=== PATIENT | female | born 1945 | race Caucasian/White ===

== ENCOUNTER 2018-02-15 06:30 | Day surgery (SDC) | payer MEDICARE, BC ==
[~2018-02-15] VITALS: Ht 172.7 cm; Wt 47.8 kg
[~2018-02-15 06:30] MED LIST: ASPI81 PO; CARV6.252 OR; DIGO0.12 PO; HYDR15TA OR; IMDU30TA PO; LISI-357 PO; MINO50TA PO; OMEP20CA5 PO; PRAV20TA PO; SPIR25TA PO; TAB-TAB PO
[2018-02-15] MEDS ORDERED: IOHEXOL 350 MG/ML 50 ML BTL (for Cath Lab) OTHER ONE (06:31)
[2018-02-15] MEDS ORDERED: IOHEXOL 350 MG/ML 100 ML BTL (for Cath Lab) OTHER ONE (06:31)
[2018-02-15] MEDS ORDERED: NS 1000 ML @100 MLS/HR IV SCH (07:00)
[2018-02-15] MEDS ORDERED: ASPIRIN 325 MG TAB PO SCH (07:00)
[2018-02-15] MEDS ORDERED: diphenhydrAMINE HCL 50 MG/ML VIAL IV SCH (07:00)
[2018-02-15] MEDS ORDERED: HEPARIN SODIUM - IV 10,000 UNITS/10 ML VIAL ONE (07:13)
[2018-02-15] MEDS ORDERED: HEPARIN-NS/PF FLUSH BAG 2,000 ML IV FLUSH ONE (07:13)
[2018-02-15] MEDS ORDERED: LIDOCAINE HCL 1% PF 30 ML VIAL ONE (07:19)
[2018-02-15 07:42] LABS: AUTOMATED NEUTROPHIL # 6.7 TH/MM3 (1.8-7.7); BASOPHIL # 0.1 TH/MM3 (0-0.2); BASOPHIL % 0.8 % (0.0-2.0); EOSINOPHIL # 0.9 TH/MM3 (0-0.4); EOSINOPHIL % 8.7 % (0.0-4.0); HEMATOCRIT 31.1 % (35.0-46.0); HEMOGLOBIN 10.1 GM/DL (11.6-15.3); LYMPHOCYTE # 1.6 TH/MM3 (1.0-4.8); MEAN CELL VOLUME 81.8 FL (80.0-100.0); MEAN CORPUSCULAR HEMOGLOBIN 26.6 PG (27.0-34.0); MEAN CORPUSCULAR HGB CONC 32.5 % (32.0-36.0); MEAN PLATELET VOLUME 7.3 FL (7.0-11.0); MONO % 10.6 % (0.0-8.0); MONOCYTE # 1.1 TH/MM3 (0-0.9); NEUT % 64.9 % (16.0-70.0); PLATELET COUNT 418 TH/MM3 (150-450); RED CELL DISTRIBUTION WIDTH 15.8 % (11.6-17.2); WHITE BLOOD COUNT 10.4 TH/MM3 (4.0-11.0)
[2018-02-15 08:01] LABS: BICARBONATE 27.8 MEQ/L (21.0-32.0); CALCIUM 8.6 MG/DL (8.5-10.1); CREATININE 0.62 MG/DL (0.50-1.00)
[2018-02-15 08:02] VITALS: BP 180/83; PULSE 79; RESP 17; TEMP 97.8; O2SAT 100
[2018-02-15] MEDS ORDERED: CENTCHW4 CHEW (08:09)
[2018-02-15] MEDS ORDERED: SPIR25TA PO (08:09)
[2018-02-15] MEDS ORDERED: LEFL1TAB3 PO (08:09)
[2018-02-15] MEDS ORDERED: ALBU6.7H INH (08:09)
[2018-02-15] MEDS ORDERED: DIGO0.12 PO (08:09)
[2018-02-15] MEDS ORDERED: TRAM50TA PO (08:09)
[2018-02-15] MEDS ORDERED: PRAV20TA2 PO (08:09)
[2018-02-15] MEDS ORDERED: ISOS10TA PO (08:09)
[2018-02-15] MEDS ORDERED: CARV12.52 PO (08:09)
[2018-02-15] MEDS ORDERED: OMEP20TA93 PO (08:09)
[2018-02-15] MEDS ORDERED: diphenhydrAMINE HCL 50 MG/ML VIAL ONE (08:26)
[2018-02-15] MEDS ORDERED: HEPARIN-NS/PF FLUSH BAG 1,000 ML IV FLUSH ONE (08:32)
[2018-02-15] MEDS ORDERED: MIDAZOLAM HCL 2 MG/2 ML VIAL ONE (09:41)
[2018-02-15] MEDS ORDERED: SODIUM CHLOR 0.9% 1000 ML INJ 1,000 ML IV SCH (10:33)
--- NOTE | 2018-02-15 10:34 | CATHPROC ---
[employer] HIS Report Study Information Study Number Admission Scheduled Start Study Start [id number] Feb 15 2018 6:30AM 02/15/2018 Feb 15 2018 8:07AM [place] Service Cardiac Catheterization Admit Source Facility Department Other [facility] Physician and Clinical Staff Initial Ale Aly Mica Laminating Machine Feeder Lawson RN, Cortes Recorder Loni Ramirez BSN Scrub Ishmael Bah RCIS(BS) Procedures Performed Procedure Location (Site) Vessel Name Angiogram LV LV Ventricle Coronary Angiograms LCA Left Coronary Coronary Angiograms RCA Right Coronary Equipment Time Glue Jointer Feeder Description Size Mfg Part Number Used/Scraped STARCLOSE, VASCULAR CLOSER [id number] 09:59 [facility] CRITICAL CARE FR 6 Used SYSTEM *[id number] 08:10 JULIEN HARDY SWAN SHAWANDA CATHETER FR 7 Used *[id number] TRANSDUCER, TRUWAVE [id number] 08:10 JULIEN HARDY * Used W/STOCKCOCK *[id number] TRANSDUCER, TRUWAVE [id number] 08:10 JULIEN HARDY * Used W/STOCKCOCK *[id number] 534-618T *[id number] 534-620T *[id number] 534-621T *[id number] PIGTAIL ANG. 145 INFINITI 534-652S CATHETER *[id number] 08:10 eDealya INDUSTRIES PACK, CCL CUSTOM * Used *[id number] 08:10 eDealya PACER PEN, SKIN DUAL W/ RULER * Used *[id number] 09:14 NowForce MEDICAL SHEATH, FR6.5 PRELUDE 11CM FR 6.5 038ACT Used *[id number] 08:10 NowForce MEDICAL WIRE, 3MMJ .035 180CM 180CM Used *[id number] 09:32 NowForce MEDICAL WIRE, EXCHANGE 260CM 3MMJ 260CM Used *[id number] 08:10 NAMIC MANIFOLD, 2 PORT * Used *[id number] [id number] 08:10 NAMIC MANIFOLD, 4 PORT * Used *[id number] 08:10 NYCOMED OMNIPAQUE, 350 MG, 150ML 150ML [id number] Used [id number] 08:10 BRISENO MEDICAL BLANKET,WARM AIR CCL * Used *[id number] 08:10 TERUMO MEDICAL SHEATH, FR7 TERUMO (10CM) FR 7 Used *[id number] 09:35 VASCULAR SOLUTIONS PIGTAIL DUAL LUMEN CATHETER FR 6 5540 *[id number] Used History: Current Medications Medication Dosage/Unit Route Frequency Last Date/Time Taken Beta Mehdi Imdur DIGOXIN 0.125 mg Statins (any) History: Allergies Allergy Reaction Sulfa (Sulfonamide Antibiotics) Rash History: Risk Factors Family History of Hypertension Dyslipidemia Previous ND Previous Heart Failure Premature CAD Yes No No No Yes Prior Valve Prior PCI Prior CABG Surgery No No No Cerebrovascular Peripheral Artery Chronic Lung On Dialysis Diabetes Disease Disease Disease No No Yes Yes No History: Stress Tests Stress or Imaging Studies Performed No History: Other Current Smoker Method Quit Packs a Day Years Used Pack Years No Cigarettes 30 Years Ago 1 20 20 Labs Hgb (g/dl) Hct (%) RBC (MIL/MM3) WBC (l/cumm) Platelets (thousands) 11.60-17.00 35.00-51.00 4.00-5.90 4.00-11.00 150.00-450.00 10.1 31.1 3.8 10.4 418 Glucose (mg/dl) BUN (mg/dl) Creatinine (mg/dl) BUN:Creatinine (1:x) 74.00-106.00 7.00-18.00 0.50-1.30 10.00-20.00 95 12 0.6 20 Na (meq/l) K (meq/l) 136.00-145.00 3.50-5.10 140 4.3 PT (sec) INR (PTT:PT) 9.80-11.60 0.90-1.10 10 1 CPK-MB (ng/ML) 0.50-3.60 Not Drawn Medication Medication Total Dose (Bolus/Oral) Medication Total Dosage/Unit 1% XYLOCAINE 10 mL FENTANYL 25 mcg VERSED 1 mg Medications (Bolus/Oral) Medication Time Given Dosage/Unit Administered By Reason 1% XYLOCAINE 02/15/2018 9:07:55 AM 10 mL Ale Man 10 mL 1% XYLOCAINE given in lab by Ale Man in Right Groin via Subcutaneous. Ordered by Ale Man. VERSED 02/15/2018 9:41:43 AM 1 mg Cortes Pathak RN 1 mg VERSED given in lab by Cortes Pathak RN via Peripheral IV. Ordered by Ale Man. FENTANYL 02/15/2018 9:42:51 AM 25 mcg Cortes Pathak RN 25 mcg FENTANYL given in lab by Cortes Pathak RN via Peripheral IV. Ordered by Ale Man. Medication (Drip) Medication Time Given Dosage/Unit Concentration/Unit Diluent (ml) Solution IV Solutions 02/15/2018 8:34:10 AM 0 mL (IV) NaCl .9 Patient arrived on IV Solutions via Peripheral IV. Pump/Drip Flow = 15 ml/hr using NaCl .9. Ordered b y Ale Man. Initial Case Assessment Cardiovascular HR Rhythm NIBP Chest Pain 84 paced 149/73 0 Edema Present Skin color Skin None Normal Warm Dry Circulatory - Right Pulses Dorsalis Pedis Femoral d 2 Scale (0,1,2,3,4,d) Circulatory - Left Pulses Dorsalis Pedis Femoral d 2 Scale (0,1,2,3,4,d) Circulatory - Lower Extremities Color Lower Right Color Lower Left Normal Normal Neurological State Oriented to time-place- Alert Moves all extremities person Respiration - General Respiration Rate SpO2 (%) (B/min) 16 100 Final Case Assessment Cardiovascular HR Rhythm NIBP Chest Pain 83 paced 139/66 0 Edema Present Skin color Skin None Normal Warm Dry Circulatory - Right Pulses Dorsalis Pedis Femoral d 2 Scale (0,1,2,3,4,d) Circulatory - Left Pulses Dorsalis Pedis Femoral d 2 Scale (0,1,2,3,4,d) Circulatory - Lower Extremities Color Lower Right Color Lower Left Normal Normal Neurological State Oriented to time-place- Alert Moves all extremities person Respiration - General Respiration Rate SpO2 (%) (B/min) 14 96 Chronological Log Time Study Chronological Log 8:16:15 Patient arrived via Bed. 8:16:16 Patient Name, D.O.B, / Armband Verified By R.N. 8:16:17 Consent signed by the physician and the patient and verified by the [facility] staff. 8:16:21 Patient has been NPO for More than 6Hrs. 8:29:10 Skin Breakdown- none per patient Vitals capture started with the following parameters, Patient=Adult, Interval=5 min, Initial Pr nyqyta=165 mmHg, 8:29:56 Deflation Rate=5 mmHg, Cuff placed on Left Arm 8:30:33 HR=81 bpm, TTLP=693/73 mmhg, LqM6=756.0 %, Resp=11 B/min, Pain=0, Liliane=10, Leon=2 8:32:26 Patient Warmer Placed on the Table. 8:34:02 A # 20 IV was noted in the Forearm (left). Grade = 0 8:34:10 Patient arrived on IV Solutions via Peripheral IV. Pump/Drip Flow = 15 ml/hr using NaCl .9. Ordered by Ale Man. 8:34:26 History and physical on the chart or being dictated. Assessment: Initial Case, HR=84 BPM, Rhythm=paced, JXRZ=574/73 mmhg, Chest Pain=0, Edema=None, Color=Normal, Skin = Warm, Dry Right Pulses: Doc Ped=d, Femoral=2 Left Pulses: Doc Ped=d, Femoral=2 8:34:27 Lower Right Extremities: Color=Normal Lower Left Extremities: Color=Normal Neurological: State=Alert, Ox3, LEAL Respiration: Resp=16 B/min, JsV3=824 % 8:34:37 Reference ECG taken 8:35:32 HR=82 bpm, CBSB=952/73 mmhg, KqZ9=799.0 %, Resp=10 B/min, Pain=0, Liliane=10, Leon=2 8:36:10 Bilateral groins prepped with 2% chlorhexidine, and draped after a 3 minute waiting time. 8:36:14 MD paged 8:40:33 HR=81 bpm, FDWI=774/76 mmhg, OaK3=489.0 %, Resp=11 B/min, Pain=0, Liliane=10, Leon=2 8:40:42 MD responded 8:41:55 Pressure channel 1 zeroed. 8:42:26 Pressure channel 2 zeroed. 8:45:32 HR=86 bpm, NTQL=714/76 mmhg, SpO2=99.0 %, Resp=12 B/min, Pain=0, Liliane=10, Leon=2 8:48:34 Verbal Stimulation=2 Physical Stimulation=2 Airway=2 Respiration=2 TOTAL=8. (0=absent, 1=salas ited, 2=present) 8:50:31 HR=85 bpm, JBLD=959/80 mmhg, SpO2=99.0 %, Resp=17 B/min, Pain=0, Liliane=10, Leon=2 8:53:38 Pressure channel 1 zeroed. 8:55:34 HR=80 bpm, HJTX=355/70 mmhg, SpO2=99.0 %, Resp=11 B/min, Pain=0, Liliane=10, Leon=2 9:00:31 HR=80 bpm, URMM=205/70 mmhg, SpO2=98.0 %, Resp=14 B/min, Pain=0, Liliane=10, Leon=2 9:01:37 MD arrived. 9:05:32 HR=81 bpm, SEQC=497/71 mmhg, DiN6=600.0 %, Resp=10 B/min, Pain=0, Liliane=10, Leon=2 Time Out. Correct patient, correct procedure, correct physician, power injector loaded, with con trast with surgical team 9:06:21 present. Time Out Concurred by MD and individual staff in procedure. 9:06:43 Case Start 9:07:55 10 mL 1% XYLOCAINE given in lab by Ale Man in Right Groin via Subcutaneous. Ordered b y Ale Man. 9:10:33 HR=83 bpm, QAPF=779/73 mmhg, BuT0=823.0 %, Resp=10 B/min, Pain=0, Liliane=10, Leon=2 9:11:34 Access site was Right Femoral Artery. 9:12:03 A SHEATH, FR7 TERUMO (10CM) FR 7 was advanced into the Fem Vein (right) using the Percutaneo us technique. 9:13:29 Access site was Right Femoral Artery. 9:13:36 A SHEATH, FR6.5 PRELUDE 11CM FR 6.5 was advanced into the Fem Art (right) using the Percutan eous technique. 9:14:35 A SWAN SHAWNADA CATHETER FR 7 was inserted via Fem Vein (right) 9:15:34 HR=82 bpm, EYDB=639/74 mmhg, JuX9=049.0 %, Resp=10 B/min, Pain=0, Liliane=10, Leon=2 9:16:07 Saturation: Site=IVC (Inferior Vena Cava) , O2=76 %, Hgb=10.1 gm/dl, Condition=Condition 1. Used in calculation. 9:16:47 Saturation: Site=Jonnathan (Mid Right Atrium) , O2=68.4 %, Hgb=10.1 gm/dl, Condition=Condition 1. Used in calculation. Recorded Pressure: RA, HR=81, Condition=Condition 1 9:17:10 (Right Atrium) RA 5/3 Recorded Pressure: RV, HR=87, Condition=Condition 1 9:17:51 (Right Ventricle) RV 36//5 Recorded Pressure: MPA, HR=85, Condition=Condition 1 9:18:20 (Main Pulmonary Artery) MPA 3723 9:19:17 Saturation: Site=FA (Femoral Artery) , O2=93.8 %, Hgb=10.1 gm/dl, Condition=Condition 1. Use d in calculation. Recorded Pressure: PCW, HR=84, Condition=Condition 1 9:20:03 (Pulmonary Capillary Wedge) PCW 13 9:20:25 Saturation: Site=PA (Pulmonary Artery) , O2=66.2 %, Hgb=10.1 gm/dl, Condition=Condition 1. U sed in calculation. 9:20:33 HR=83 bpm, DOCI=489/74 mmhg, SpO2=99.0 %, Resp=12 B/min, Pain=0, Liliane=10, Leon=2 Thermo CO: CO=5.4 l/m, HR=86 bpm, Condition=Condition 1. Used in calculation. 9:21:15 Equipment: Description and Size=SWAN SHAWANDA CATHETER FR 7, Type=Bath Probe, CC=0.579 Injectant: Temp=19.0 - 22.0 Celsius, Volume=10.0 ml Thermo CO: CO=5.1 l/m, HR=83 bpm, Condition=Condition 1. Used in calculation. 9:22:00 Equipment: Description and Size=SWAN SHAWANDA CATHETER FR 7, Type=Bath Probe, CC=0.579 Injectant: Temp=19.0 - 22.0 Celsius, Volume=10.0 ml Thermo CO: CO=5.0 l/m, HR=83 bpm, Condition=Condition 1. Used in calculation. 9:22:27 Equipment: Description and Size=SWAN SHAWANDA CATHETER FR 7, Type=Bath Probe, CC=0.579 Injectant: Temp=19.0 - 22.0 Celsius, Volume=10.0 ml 9:25:36 HR=81 bpm, EVKN=397/72 mmhg, SpO2=98.0 %, Resp=11 B/min, Pain=0, Liliane=10, Leon=2 Recorded Pressure: LV, MPA, HR=90, Condition=Condition 1 9:25:55 (Left Ventricle) LV 167/7/16, (Main Pulmonary Artery) MPA 43/19/30 Recorded Pressure: LV, MPA, HR=87, Condition=Condition 1 9:26:14 (Left Ventricle) LV 158/4/14, (Main Pulmonary Artery) MPA 42/15/27 Recorded Pressure: LV, PCW, HR=88, Condition=Condition 1 9:26:50 (Left Ventricle) LV 162/4/12, (Pulmonary Capillary Wedge) PCW 16/15/12 Recorded Pressure: LV, RV, HR=86, Condition=Condition 1 9:27:19 (Left Ventricle) LV 163/5/14, (Right Ventricle) RV 42/0/5 9:27:41 [place] Shawanda Catheter Removed Recorded Pressure: LV, HR=85, Condition=Condition 1 9:28:06 (Left Ventricle) LV 163/3/13 9:29:23 Pressure channel 1 zeroed. 9:30:33 HR=86 bpm, RQSD=402/77 mmhg, SpO2=98.0 %, Resp=13 B/min, Pain=0, Liliane=10, Leon=2 9:31:39 The LV was injected at 15 cc/sec for a total of 42. OMNIPAQUE, 350 MG, 150ML 150ML used. After removing the current catheter a PIGTAIL DUAL LUMEN CATHETER FR 6 was advanced over a WIRE, EXCHANGE 9:33:18 260CM 3MMJ 260CM. Recorded Pressure: LV, Ao, HR=89, Condition=Condition 1 9:35:27 (Left Ventricle) LV 163/7/16, (Aorta) Ao 158/66/105 9:35:34 HR=90 bpm, RRKH=015/87 mmhg, SpO2=97.0 %, Resp=12 B/min After removing the current catheter a JL 4.0 INFINITI CATHETER FR 6 was advanced over a WIRE, EX CHANGE 260CM 9:36:57 3MMJ 260CM. Recorded Pressure: Ao, HR=84, Condition=Condition 1 9:37:16 (Aorta) Ao 156/62/101 After removing the current catheter a JL 3.5 INFINITI CATHETER FR 6 was advanced over a WIRE, 3M MJ .035 180CM 9:40:04 180CM. 9:40:37 HR=83 bpm, FMFW=973/71 mmhg, SpO2=98.0 %, Resp=12 B/min, Pain=0, Liliane=10, Leon=2 9:41:43 1 mg VERSED given in lab by Cortes Pathak RN via Peripheral IV. Ordered by Ale Man. 9:42:51 25 mcg FENTANYL given in lab by Cortes Pathak RN via Peripheral IV. Ordered by Ale Man . 9:45:36 HR=86 bpm, ZKRE=393/70 mmhg, SpO2=97.0 %, Resp=12 B/min, Pain=0, Liliane=10, Leon=2 After removing the current catheter a JL 4.0 INFINITI CATHETER FR 6 was advanced over a WIRE, 3M MJ .035 180CM 9:47:04 180CM. Recorded Pressure: LCA, HR=86, Condition=Condition 1 9:47:42 (Left Coronary Artery) LCA 133/54/89 9:48:14 The LCA was injected and visualized at various angles. OMNIPAQUE, 350 MG, 150ML 150ML used. 9:50:35 HR=88 bpm, UNYT=973/71 mmhg, SpO2=96.0 %, Resp=16 B/min After removing the current catheter a JR 4.0 INFINITI CATHETER FR 6 was advanced over a WIRE, 3M MJ .035 180CM 9:53:45 180CM. 9:54:25 The RCA was injected and visualized at various angles. OMNIPAQUE, 350 MG, 150ML 150ML use d. 9:55:34 HR=87 bpm, MDPI=646/65 mmhg, SpO2=96.0 %, Resp=18 B/min, Pain=0, Liliane=10, Leon=2 9:56:18 Catheter(s) removed without difficulty 9:57:33 An injection in the Fem Art (right) was made through the SHEATH, FR6.5 PRELUDE 11CM FR 6.5 . 10:00:33 HR=90 bpm, ODTD=333/69 mmhg, SpO2=98.0 %, Resp=13 B/min, Pain=0, Liliane=10, Leon=2 10:02:31 STARCLOSE, VASCULAR CLOSER SYSTEM FR 6 placement in the Fem Art (right) 10:02:34 Case End 10:02:51 No case complications noted. 10:02:51 Cine recording checked. 10:03:44 Bedside Report will be given. 10:03:50 A Left and Right Heart Cath was performed. 10:05:39 HR=84 bpm, BVSN=422/65 mmhg, SpO2=97.0 %, Resp=16 B/min, Pain=0, Liliane=10, Leon=2 10:07:36 Venous Sheath removed; pressure applied to access site. 10:10:31 Sterile dressing applied to site 10:10:36 HR=85 bpm, AVXK=031/66 mmhg, SpO2=98.0 %, Resp=18 B/min, Pain=0, Liliane=10, Leon=2 Assessment: Final Case, HR=83 BPM, Rhythm=paced, AQUM=766/66 mmhg, Chest Pain=0, Edema=None, Color=Normal, Skin = Warm, Dry Right Pulses: Doc Ped=d, Femoral=2 Left Pulses: Doc Ped=d, Femoral=2 10:11:03 Lower Right Extremities: Color=Normal Lower Left Extremities: Color=Normal Neurological: State=Alert, Ox3, LEAL Respiration: Resp=14 B/min, SpO2=96 % 10:12:19 [facility] - Contrast Media Used In Study Contrast Total Opened (mL) Total Used (mL) Total Wasted (mL) Omnipaque 120 120 0 End Study - Maximum Contrast Load Max Contrast Load (mL) 398.5 End Study - Radiation Exposure Fluoro Time (minutes) 9.8 End Study - Patient Disposition Complications Transferred To No [facility]
[2018-02-15] MEDS ORDERED: MISC INFORMATION XX ONE (10:45)
[2018-02-15] MEDS ORDERED: ACETAMINOPHEN 500 MG CPLT PO PRN (10:45)
[2018-02-15] MEDS ORDERED: ATROPINE SULFATE 1 MG/ML VIAL IV PUSH PRN (10:45)
[2018-02-15] MEDS ORDERED: SODIUM CHLOR 0.9% 250 ML INJ 250 ML IV PRN (10:45)
[2018-02-15] MEDS ORDERED: BACITRACIN OINT 0.9 GM PKT TOP ONE (10:45)
[2018-02-15] MEDS ORDERED: ONDANSETRON HCL 4 MG/2 ML VIAL IV PUSH PRN (10:45)
--- NOTE | 2018-02-15 11:09 | MA ---
cc: Ale Man MD, Souheil MD Meyers,Skylar Ambrocio MD DATE: 02/15/2018 PROCEDURE: 1. Right heart catheterization. 2. Left heart catheterization. 3. Coronary arteriogram. 4. Left ventriculogram. 5. Hemodynamic pressure gradient measurements across the aortic valve with a [place] dual lumen catheter. 6. Right femoral arteriogram. 7. Right femoral arteriotomy site closure using a StarClose device. 8. Conscious sedation using Versed and fentanyl for sedation for 30 minutes. JEWELRY MODEL MAKER: Ale Man MD EQUIPMENT USED: A 6-Cuban short sheath, a 7-Cuban short sheath, a 7-Cuban [place]-Kashif catheter. A 6-Cuban JL4, JR4 and pigtail diagnostic catheters. A 6-Cuban Phong catheter (dual lumen). A 6-Cuban JL 3.5 was tried to cannulate the left main; however, we ended up cannulating the left main with the JL4. INDICATION: Progressive angina equivalent symptoms with less exertion lately and echocardiogram revealing LVEF of 55% with a calcified mitral valve and prolapse and severe mitral regurgitation with mild to moderate degree of pulmonary hypertension and also mild to moderate degree of aortic stenosis. She was advised to proceed with right and left heart catheterization to assess her pulmonary hypertension and also assess the severity of the aortic valve and her coronary anatomy. PROCEDURE: After obtaining informed consent, the right groin was prepped in the usual sterile fashion. 15 mL of 1% lidocaine were used for local anesthesia. Using the modified Seldinger technique, the right femoral vein was accessed and a 7-Cuban Terumo sheath was advanced cannulating the right femoral vein. Using the same technique, the 6-Cuban short sheath was inserted in the right femoral artery. [place]-Kashif catheter was then advanced without difficulty and sats were obtained from IVC/mid-RA, PA, and also from the FA. Hemodynamic pressure measurements were obtained in the RA/RV, PA, and wedge position. Simultaneous LV and right heart pressures were also performed. This was followed by crossing the aortic valve using the pigtail catheter which was exchanged with a Phong eventually to hemodynamically measure accurately the gradients across the aortic valve. A left ventriculogram was performed. This was followed by coronary arteriograms, followed by right femoral arteriogram with heavy calcification noted just below the arteriotomy site and those were severe calcifications in 3 areas of the common femoral and also of the SFA. A StarClose device was then applied achieving adequate hemostasis. The patient tolerated the procedure well without acute complications at the time of dictation. CARDIAC CATHETERIZATION FINDINGS: HEMODYNAMICS: RA shows an A-wave of 5, V-wave of 4 and a mean around 3 mmHg. RV pressure was 36/1 with an RVEDP of 6 mmHg. PA pressure was 37/13 with a mean of 23 mmHg. Wedge: A-wave of 13, V-wave of 12 and mean of 10 mmHg. LV pressure was 163/7 with an LVEDP of 16 mmHg. AO pressure was 158/66 mmHg with a mean of 102 mmHg. Mean gradient across the aortic valve was 6.28 mmHg and a valve area of 2.84 cm2 by thermodilution and 2.83 cm2 by Angelica calculation. Valve area index was 1.82 and 1.81 cm2/m2 simultaneously, reflecting only mild aortic stenosis. There was heavy calcification of the mitral annulus noted and a 3+ mitral regurgitation appearing late with enlargement of the left atrium with injection of the LV gram. LEFT VENTRICULOGRAPHY: The left ventriculogram revealed mid to distal anterior apical and distal inferior wall moderate to significant hypokinesis. The left ventricular systolic function is mildly reduced, ejection fraction visual estimates around 45-50%. There was 3-3+ mitral regurgitation. The mitral regurgitation was more prominent from the echocardiogram. There is prolapse of the mitral leaflets noted as well. CORONARIES: Left main artery arose from the left sinus of Valsalva. This had an 80% ostial calcified plaque with damping of pressure upon cannulation and the pressure remained damped even after injecting 150 mcg of nitroglycerin. Left anterior descending artery branched from the left main artery, gave a decent-sized diagonal branch from the mid-portion. The whole LAD system had mild irregularities of 0-15%. Left circumflex artery branched from the left main artery and this had also mild irregularities of less than 20%. From the mid-portion, it extended as a good-sized PLV branch that had multiple other branches with a 0-15% stenosis. The AV groove artery was minute with minimal irregularities of less than 15%. Right coronary artery arose from the right sinus of a Valsalva. This was a big dominant vessel with an inferior takeoff and had minimal irregularities of 0-15%. Distally it gave PDA and PLV arteries that had minimal irregularities of less than 15%. Two mid-RV branches were also within normal limits. CONCLUSION OF THE CARDIAC CATHETERIZATION: 1. Tight calcified ostial left main disease, otherwise mild epicardial coronary artery disease in the right coronary dominant system. 2. Calcified mitral valve with prolapse and 3+ mitral regurgitation. 3. Mildly reduced left ventricular systolic function. 4. Mildly elevated right heart pressures with a PA systolic pressure ranging between 37-43 mmHg. 5. Mild calcified aortic stenosis. RECOMMENDATIONS: Proceed with a two-vessel bypass with a presumed JIMENEZ to the LAD and second graft to the LCX OM as well as mitral valve repair/replacement. This was discussed with Dr. Skylar Howard and he agreed with the plan. Regarding this patient's significant calcified right femoral artery and right SFA disease, she claims she has no claudications walking and this will be dealt with after her open heart surgery. Plan was discussed with Mrs. Lane and she is in agreement as well. MD TITA Mo/SB , 10:29 AM , 11:08 AM
--- NOTE | 2018-02-15 11:42 | PD.CAR.PN ---
CVT Progress Note Subjective/Hospital Course: pt seen and evaluated / full consult to follow sts data discussed with pt Variables - STS Adult Cardiac Surgery Database Version 2.81 RISK SCORES About the STS Risk Calculator Procedure: MV Replacement + CAB Risk of Mortality: 6.728% Morbidity or Mortality: 31.721% Long Length of Stay: 18.507% Short Length of Stay: 9.728% Permanent Stroke: 2.664% Prolonged Ventilation: 25.187% DSW Infection: 0.403% Renal Failure: 8.141% Reoperation: 15.394% tentatively scheduled for CABG X2/ MVR 02/23 Objective: Vital Signs Date Time Temp Pulse Resp B/P (MAP) Pulse Ox O2 Delivery O2 Flow Rate FiO2 02/15/18 10:16 100 Room Air 02/15/18 08:02 97.8 79 17 180/83 (115) 100 Labs: Laboratory Tests Test 02/15/18 07:15 White Blood Count 10.4 TH/MM3 (4.0-11.0) Red Blood Count 3.80 MIL/MM3 (4.00-5.30) Hemoglobin 10.1 GM/DL (11.6-15.3) Hematocrit 31.1 % (35.0-46.0) Mean Corpuscular Volume 81.8 FL (80.0-100.0) Mean Corpuscular Hemoglobin 26.6 PG (27.0-34.0) Mean Corpuscular Hemoglobin Concent 32.5 % (32.0-36.0) Red Cell Distribution Width 15.8 % (11.6-17.2) Platelet Count 418 TH/MM3 (150-450) Mean Platelet Volume 7.3 FL (7.0-11.0) Neutrophils (%) (Auto) 64.9 % (16.0-70.0) Lymphocytes (%) (Auto) 15.0 % (9.0-44.0) Monocytes (%) (Auto) 10.6 % (0.0-8.0) Eosinophils (%) (Auto) 8.7 % (0.0-4.0) Basophils (%) (Auto) 0.8 % (0.0-2.0) Neutrophils # (Auto) 6.7 TH/MM3 (1.8-7.7) Lymphocytes # (Auto) 1.6 TH/MM3 (1.0-4.8) Monocytes # (Auto) 1.1 TH/MM3 (0-0.9) Eosinophils # (Auto) 0.9 TH/MM3 (0-0.4) Basophils # (Auto) 0.1 TH/MM3 (0-0.2) CBC Comment DIFF FINAL Differential Comment Prothrombin Time 10.0 SEC (9.8-11.6) Prothromb Time International Ratio 1.0 RATIO Activated Partial Thromboplast Time 26.2 SEC (24.3-30.1) Blood Urea Nitrogen 12 MG/DL (7-18) Creatinine 0.62 MG/DL (0.50-1.00) Random Glucose 95 MG/DL (74-106) Calcium Level 8.6 MG/DL (8.5-10.1) Sodium Level 140 MEQ/L (136-145) Potassium Level 4.3 MEQ/L (3.5-5.1) Chloride Level 105 MEQ/L (98-107) Carbon Dioxide Level 27.8 MEQ/L (21.0-32.0) Anion Gap 7 MEQ/L (5-15) Estimat Glomerular Filtration Rate 94 ML/MIN (>89) Human Chorionic Gonadotropin, Quant 5 MIU/ML (0-5) Result Diagram: 02/15/18 0715 02/15/18 0715 Cecelia Duke Feb 15, 2018 11:42
--- NOTE | 2018-02-15 12:32 | MB ---
cc: Cecelia Duke DATE: 02/15/2018 HISTORY OF PRESENT ILLNESS: This 72-year-old patient of Dr. Finesse Chatman and Dr. Man that has a history of nonischemic cardiomyopathy and history of mitral regurgitation, complaining of some shortness of breath with exertion for the past couple of weeks and some tightness in her chest when lying down, had a followup with Dr. Man, underwent echocardiogram 01/18/2018 which showed an ejection fraction of 55%, mild to moderate aortic stenosis, severe mitral regurgitation, 2 regurgitation jets with 1 hugging the lateral wall, aneurysmal atrial septum, moderate tricuspid regurgitation with moderate pulmonary hypertension. She underwent cardiac catheterization today for evaluation. Ejection fraction was 45%. The left main had an 80% stenosis, proximal LAD less than 15. We were consulted for mitral valve replacement and coronary artery bypass grafting x 2 to the LAD and the circumflex. PAST MEDICAL HISTORY: Includes nonischemic cardiomyopathy, carotid artery stenosis, coronary artery disease, mitral regurgitation, aortic stenosis, tricuspid regurgitation, hypertension, hyperlipidemia, scleroderma, significant rheumatoid arthritis, and osteoporosis,. She has been off chronic steroids for about 8 years. She does take chronic RA medication. PAST SURGICAL HISTORY: Include Bi-V ICD 5 years ago with a generator change out 3 years ago, [employer]tronic device,;bilateral knee replacement, appendectomy, and bilateral cataract surgery. ALLERGIES: INCLUDE SULFA. HOME MEDICATIONS: Include: 1. Coreg 12.5 b.i.d. 2. Multivitamin. 3. Digoxin 0.125 daily. 4. Imdur 30. 5. Leflunomide 20 mg daily. 6. Omeprazole 20. 7. Pravachol 20 p.o. daily. 8. Albuterol p.r.n. for shortness of breath. 9. Spironolactone 12.5 daily. 10. Tramadol 50 every 6 hours p.r.n. for pain. FAMILY HISTORY: Mother at 92, unknown. Father from 82 of lung cancer. SOCIAL HISTORY: The patient is , one living child. 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 REVIEW OF SYSTEMS: GENERAL: No night sweats, fever, heat and cold intolerance. SKIN: No psoriasis, itching or hives. HEENT: No blurred vision or hearing loss. She does wear glasses. RESPIRATORY: Positive for recent shortness of breath with exertion. CARDIOVASCULAR: Occasional tightness when lying down. No palpitations. No edema. GASTROINTESTINAL: No nausea or vomiting. GASTROINTESTINAL: No diarrhea or vomiting. GENITOURINARY: No burning, frequency, or urgency. CENTRAL NERVOUS SYSTEM: No history of TIA, CVA or seizure disorder. ENDOCRINOLOGY: No history of diabetes. Positive for rheumatoid arthritis and scleroderma. 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 LABORATORY DATA: Shows hemoglobin 10, hematocrit of 31, white cell count of 10, platelet count of 418. Sodium 140, potassium 4.3, BUN of 12, creatinine 0.62, glucose 95. INR 1.0. RADIOLOGICAL EXAMS: Pending. ASSESSMENT AND PLAN: This is a 72-year-old patient of Dr. Man that underwent cardiac catheterization with 2-vessel coronary artery disease, the left main, which will need the left anterior descending and the circumflex bypassed. The mitral valve will be evaluated for repair versus replacement. We will obtain a CT chest to evaluate for any calcification and also for any bony abnormalities. She will need to have the [employer] sales representative notified prior to surgery to turn the Bi-V ICD off. Procedures, alternatives and risks have been discussed with the patient. The STS risk of mortality is 6.7, also secondary to her immune compromise due to her severe RA and scleroderma. Further plan per Dr. Howard. The plan tentatively is for surgery on 02/23/2018. DERRICK Blakely MD JRT/DIOGENES , 11:57 AM , 12:31 PM
--- NOTE | 2018-02-15 12:42 | RADRPT ---
EXAM DATE/TIME: 02/15/2018 11:39 [facility] COMPARISON: No previous studies available for comparison. INDICATIONS : Pre-op CABG. MEDICAL HISTORY : Hypertension. Congestive heart failure. Asthma. Arthritis. SURGICAL HISTORY : Hysterectomy.Pacemaker. PEG tube placement. Bilateral knee replacement. ENCOUNTER: Initial ACUITY: 1 day PAIN SCORE: 0/10 LOCATION: Bilateral legs. TECHNIQUE: Venous ultrasound of the left and right leg was performed from the inguinal ligament to the proximal calf. Real-time, color Doppler and spectral tracing, compression and augmentation techniques were us ed. FINDINGS: RIGHT LEG: There is normal compressibility of the deep venous system from the inguinal region to the proximal ca lf. No echogenic clot is seen in the lumen of the common femoral, femoral, popliteal, and posterior tibial veins. There is a normal response of the venous system to proximal and distal augmentation an d respiration. LEFT LEG: There is normal compressibility of the deep venous system from the inguinal region to the proximal ca lf. No echogenic clot is seen in the lumen of the common femoral, femoral, popliteal, and posterior tibial veins. There is a normal response of the venous system to proximal and distal augmentation an d respiration. There is a complex cystic structure in the posterior medial knee measuring up to 5.7 x 1.3 x 1.8 cm. CONCLUSION: 1. No evidence of deep venous thrombosis. 2. Complex cystic structure in the posterior medial knee most characteristic of a Esposito's cyst. Jozef Pedro MD on February 15, 2018 at 12:39 Board Certified Radiologist. This report was verified electronically.
--- NOTE | 2018-02-15 12:43 | RADRPT ---
EXAM DATE/TIME: 02/15/2018 11:48 [facility] COMPARISON: No previous studies available for comparison. INDICATIONS : Pre-op CABG. MEDICAL HISTORY : Hypertension. Congestive heart failure. Asthma. Arthritis. SURGICAL HISTORY : Pacemaker. Hysterectomy. PEG tube placement. Bilateral knee replacement. ENCOUNTER: Initial ACUITY: 1 day PAIN SCORE: 0/10 LOCATION: Bilateral legs. GREATER SAPHENOUS VEIN THIGH: PROXIMAL: Right 3 mm Left 8 mm MID: Right 6 mm Left 5 mm DISTAL: Right 4 mm Left 5 mm CALF: PROXIMAL: Right 4 mm Left 3 mm MID: Right 3 mm Left 3 mm DISTAL: Right 2 mm Left 2 mm FINDINGS: The venous system of the lower extremities are patent by color Doppler imaging. Measurements of the leg veins (in mm) are listed above. CONCLUSION: 1. Venous mapping as above Brandt Zabala MD on February 15, 2018 at 12:39 Board Certified Radiologist. This report was verified electronically.
--- NOTE | 2018-02-15 12:43 | RADRPT ---
EXAM DATE/TIME: 02/15/2018 12:09 [facility] COMPARISON: No previous studies available for comparison. INDICATIONS : Pre-op CABG. MEDICAL HISTORY : Hypertension. Congestive heart failure. Asthma. Arthritis. SURGICAL HISTORY : Hysterectomy. Pacemaker. PEG tube placement. Bilateral knee replacement. ENCOUNTER: Initial ACUITY: 1 day PAIN SCORE: 0/10 LOCATION: Bilateral neck PEAK SYSTOLIC VELOCITIES (cm/sec): ICA/CCA RATIO: Right: 0.8 Left: 1.2 ICA: Right: 100 Left: 126 CCA: Right: 132 Left: 102 ECA: Right: 96 Left: 114 VERTEBRAL: Right: 108 antegrade Left: 81 antegrade Elevated flow velocities and ICA/CCA ratios have been found to correlate with increased degrees of vessel stenosis, calculated as percentage of diameter relative to a normal segment of distal ICA/CCA FINDINGS: RIGHT CAROTID: No significant stenosis is visualized. Mild plaquing in the internal carotid origin. The waveforms a re within normal limits. LEFT CAROTID: No significant stenosis is visualized. Moderate plaquing in the internal carotid origin The waveform s are within normal limits. VERTEBRAL ARTERIES: Antegrade flow is seen in both vertebral arteries. MISCELLANEOUS: None. CONCLUSION: Atherosclerotic disease without two-dimensional or hemodynamically significant stenosis. Benito Benz MD on February 15, 2018 at 12:40 Board Certified Radiologist. This report was verified electronically.
--- NOTE | 2018-02-15 13:24 | RADRPT ---
EXAM DATE/TIME: 02/15/2018 13:05 [facility] COMPARISON: No previous studies available for comparison. INDICATIONS : Evaluate for pneumonia, pneumothorax or communicable disease. Pre op cabg. MEDICAL HISTORY : Hypertension. Congestive heart failure. Asthma SURGICAL HISTORY : Pacemaker. Hysterectomy. ENCOUNTER: Initial ACUITY: 1 day PAIN SCORE: 0/10 LOCATION: Bilateral chest FINDINGS: A single view of the chest demonstrates diffuse bilateral infiltrates with widespread interstitial d isease. The cardiomediastinal contours are unremarkable. Osseous structures are intact. Left subcl felicita pacemaker. CONCLUSION: Diffuse bilateral infiltrates with widespread interstitial disease. Benito Benz MD on February 15, 2018 at 13:19 Board Certified Radiologist. This report was verified electronically.
--- NOTE | 2018-02-15 13:59 | RADRPT ---
EXAM DATE/TIME: 02/15/2018 12:51 [facility] COMPARISON: No previous studies available for comparison. INDICATIONS : Pre-op CABG. RADIATION DOSE: 5.10 CTDIvol (mGy) MEDICAL HISTORY : Cardiovascular disease. SURGICAL HISTORY : Pacemaker. Hysterectomy. ENCOUNTER: Initial ACUITY: 1 day PAIN SCALE: 0/10 LOCATION: cranial TECHNIQUE: Volumetric scanning of the chest was performed. Using automated exposure control and adjustment of t he mA and/or kV according to patient size, radiation dose was kept as low as reasonably achievable to obtain optimal diagnostic quality images. DICOM format image data is available electronically for r eview and comparison. Follow-up recommendations for detected pulmonary nodules are based at a minimum on nodule size and pa tient risk factors according to Fleischner Society Guidelines. FINDINGS: LUNGS: The patient has widespread diffuse interstitial lung disease. There is extensive bronchiectasis in th e right lower lobe. This thickening in the major fissure on the right no significant airspace disease is seen. PLEURAE: There is no pleural thickening or pleural effusion. MEDIASTINUM: The heart and great vessels demonstrate no acute abnormality. There is no mediastinal or hilar lymph adenopathy. Pacemaker in good position. Marked atherosclerotic disease. AXILLAE: Within normal limits. No lymphadenopathy. MUSCULOSKELETAL: Within normal limits for patient age. MISCELLANEOUS: The visualized upper abdominal organs demonstrate no acute abnormality. Severe atherosclerotic diseas e CONCLUSION: Widespread diffuse interstitial lung disease. Bronchiectasis in the right lower lobe. Some mild thick ening of the fissure on the right. No substantial pleural effusion is identified. Dense atherosclerot ic disease.. Benito Benz MD on February 15, 2018 at 13:55 Board Certified Radiologist. This report was verified electronically.
[2018-02-15 15:46] LABS: BILIRUBIN, URINE NEG (NEG); BLOOD, URINE NEG (NEG); GLUCOSE,URINE NEG (NEG); KETONE, URINE NEG (NEG); NITRITE,URINE NEG (NEG); SQUAMOUS EPITHELIAL CELL URINE <1 /hpf (0-5); URINE COLOR LIGHT-YELLOW (YELLW/STRAW); URINE LEUKOCYTE ESTERASE SMALL (NEG)
[2018-02-15 22:11] LABS: HEMOGLOBIN A1C 5.7 % (4.3-6.0)
== END 2018-02-15 15:23 | disposition home or self-care (01) ==
LOC: HDIC 06:30 → HDOC 06:30
PROVIDERS: ATTEND Internal Medicine Interventional Cardiology
DX: I25.10 Atherosclerotic heart disease of native coronary artery without angina pectoris (principal); I11.0 Hypertensive heart disease with heart failure; I50.9 Heart failure, unspecified; I42.0 Dilated cardiomyopathy; I05.9 Rheumatic mitral valve disease, unspecified; E78.2 Mixed hyperlipidemia; J45.909 Unspecified asthma, uncomplicated; J47.9 Bronchiectasis, uncomplicated; J84.9 Interstitial pulmonary disease, unspecified; Z95.0 Presence of cardiac pacemaker; Z96.653 Presence of artificial knee joint, bilateral; Z01.818 Encounter for other preprocedural examination; Z01.812 Encounter for preprocedural laboratory examination
CPT/HCPCS: 71045; 71250; 80048; 81001; 83036; 84702; 85025; 85610; 85730; 86850; 86900; 86901; 87641; 93458; 93880; 93970; 93998; 94010; 99152; 99153; C1760; C1893; G0269; J1200; J1644; J2250; J3010; Q9967

== ENCOUNTER 2018-02-23 05:12 | Inpatient (IN) | payer MEDICARE, BC ==
[~2018-02-23] VITALS: Ht 172.7 cm; Wt 53.5 kg
[2018-02-23] VITALS (11 sets, daily range): BP systolic 119–157; BP diastolic 58–76; PULSE 68–83; RESP 12–18; TEMP 97.5–98.3; O2SAT 96–99
[~2018-02-23 05:12] MED LIST changes: +ALBU6.7H INH; -ASPI81 PO; +CARV12.52 PO; -CARV6.252 OR; +CENTCHW4 CHEW; -HYDR15TA OR; -IMDU30TA PO; +ISOS10TA PO; +LEFL1TAB3 PO; -LISI-357 PO; -MINO50TA PO; -OMEP20CA5 PO; +OMEP20TA93 PO; -PRAV20TA PO; +PRAV20TA2 PO; -TAB-TAB PO; +TRAM50TA PO
[2018-02-23] MEDS ORDERED: SODIUM CHLORID 0.9% 500 ML IV PRN (05:45)
[2018-02-23] MEDS ORDERED: CHLORHEXIDINE GLUCONATE 4% SOLN 120 ML BTL TOPICAL SCH (05:45)
[2018-02-23] MEDS ORDERED: METOPROLOL TARTRATE 25 MG TAB PO SCH (05:45)
[2018-02-23] MEDS ORDERED: INSULIN REGULAR 100 UNITS in NS 100 ML IV PRN (05:45)
[2018-02-23] MEDS ORDERED: INSULIN HUMAN REGULAR 1,000 UNITS/10 ML VIAL SQ PRN (05:45)
[2018-02-23] MEDS ORDERED: DEXTROSE 50% IN WATER 50 ML VIAL(D50) IV PUSH PRN ×2 (05:45→13:30)
[2018-02-23] MEDS ORDERED: SODIUM CHLORIDE 0.9% FLUSH 10 ML FLUSH IV FLUSH PRN ×2 (05:45→13:30)
[2018-02-23] MEDS ORDERED: PAPAVERINE 60 MG-NITROGLYCERIN 100 MCG-DILTIAZEM 100 MG in NS 100 ML IRRIGATION SCH ×4 (05:45)
[2018-02-23] MEDS ORDERED: CHLORHEXIDINE GLUCONATE 2 % 1 PACK (2 CLOTHS) TOPICAL PRN (05:45)
[2018-02-23] MEDS ORDERED: CEFAZOLIN 500 MG in NS IRR BTL 500 ML IRRIGATION SCH (05:45)
[2018-02-23] MEDS ORDERED: ceFAZolin 2 GM PREMIX 50 ML IV SCH (05:45)
[2018-02-23] MEDS ORDERED: LACTATED RINGER'S 1000 ML IV PRN (05:45)
[2018-02-23] MEDS ORDERED: POVIDONE IODINE 5% (ANTISEPSIS KIT) 4 APPLICATIONS EACH NARE PRN (05:45)
[2018-02-23] MEDS ORDERED: METOPROLOL TARTRATE 25 MG TAB PO PRN (05:45)
[2018-02-23] MEDS ORDERED: HEPARIN SODIUM - SQ 10,000 UNITS/ML VIAL ONE (06:38)
[2018-02-23] MEDS ORDERED: methylPREDNISolone SOD SUCC 125 MG/2 ML VIAL ONE (06:38)
[2018-02-23] MEDS ORDERED: VANCOMYCIN HCL 1000 MG VIAL ONE (06:38)
[2018-02-23] MEDS ORDERED: ceFAZolin 2 GM PREMIX 50 ML ONE (06:39)
[2018-02-23] MEDS ORDERED: SUGAMMADEX SODIUM 200 MG/2 ML VIAL IV PUSH ONE (06:44)
[2018-02-23] MEDS ORDERED: ACETAMINOPHEN 1000 MG/100 ML 100 ML IV ONE (06:44)
[2018-02-23] MEDS ORDERED: MIDAZOLAM HCL 5 MG/5 ML VIAL ONE (06:44)
[2018-02-23] MEDS ORDERED: fentaNYL CITRATE 250 MCG/5 ML AMP ONE ×2 (06:45→09:57)
[2018-02-23] MEDS ORDERED: CUSTODIOL HTK IRR SOLN 2,000 ML ONE (07:29)
[2018-02-23] MEDS ORDERED: ALBUMIN 25% INJ 50 ML IV ONE (07:30)
[2018-02-23] MEDS ORDERED: SODIUM BICARBONATE 8.4% INJ 100 ML ONE (07:30)
[2018-02-23] MEDS ORDERED: MANNITOL INJ 100 ML ONE (07:30)
[2018-02-23] MEDS ORDERED: CALCIUM CHLORIDE 10% SOLN 1 GRAM/10 ML SYR ONE (07:31)
[2018-02-23] MEDS ORDERED: HEPARIN SODIUM - IV 10,000 UNITS/10 ML VIAL ONE (07:31)
[2018-02-23] MEDS ORDERED: SODIUM CHLORIDE 0.9% INJ 200 ML IV ONE (12:00)
[2018-02-23] MEDS ORDERED: PROTAMINE SULFATE 250 MG/25 ML VIAL IV ONE (12:00)
[2018-02-23] MEDS ORDERED: PROPOFOL 500 MG/50 ML BTL IV ONE (12:00)
[2018-02-23] MEDS ORDERED: NORMOSOL R INJ 2,000 ML IV ONE (12:00)
[2018-02-23] MEDS ORDERED: NITROGLYCERIN 50 MG/DEXTROSE 5% SOLN 250 ML BTL IV ONE (12:00)
[2018-02-23] MEDS ORDERED: VECURONIUM BROMIDE 10 MG VIAL IV ONE (12:00)
[2018-02-23] MEDS ORDERED: LACTATED RINGER'S 1000 ML INJ 2,000 ML IV ONE (12:00)
[2018-02-23] MEDS ORDERED: PHENYLEPH/NS 1000 MCG/10 ML SYR IV ONE (12:00)
[2018-02-23] MEDS ORDERED: HEPARIN SODIUM - SQ 10,000 UNITS/ML VIAL SQ ONE (12:00)
[2018-02-23] MEDS ORDERED: PHENYLEPHRINE HCL 10 MG/ML VIAL IV ONE (12:00)
[2018-02-23] MEDS ORDERED: SODIUM CHLOR 0.9% 250 ML INJ 750 ML IV ONE (12:00)
[2018-02-23] MEDS ORDERED: SODIUM CHLORID 0.9% 500 ML INJ 500 ML IV ONE (12:00)
[2018-02-23] MEDS ORDERED: DEXMEDETOMIDINE HCL 200 MCG/2 ML VIAL IV ONE (12:00)
[2018-02-23] MEDS ORDERED: LIDOCAINE HCL 2% 100 MG/5 ML SYRINGE IV PUSH ONE (12:00)
[2018-02-23] MEDS ORDERED: TRANEXAMIC ACID INJ 1,000 MG/10 ML AMP IV ONE (12:00)
[2018-02-23] MEDS ORDERED: MAGNESIUM SULFATE 1 GM/2 ML VIAL IV ONE (12:00)
[2018-02-23] MEDS ORDERED: ePHEDrine/NS 25 MG/5 ML SYRINGE IV ONE (12:00)
[2018-02-23] MEDS ORDERED: SUCCINYLCHOLINE CHLORIDE 200 MG/10 ML VIAL IV ONE (12:00)
[2018-02-23] MEDS ORDERED: ceFAZolin INJ 1,000 MG VIAL ONE (13:04)
--- NOTE | 2018-02-23 13:04 | PD.CAR.PN ---
CVT Progress Note Subjective/Hospital Course: 72-year-old patient of Dr. Finesse Chatman and Dr. Man initally seen 02/15 with a history of nonischemic cardiomyopathy and history of mitral regurgitation, complaining of some shortness of breath with exertion for the past couple of weeks and some tightness in her chest when lying down, had a followup with Dr. Man, underwent echocardiogram 01/18/2018 which showed an ejection fraction of 55%, mild to moderate aortic stenosis, severe mitral regurgitation, 2 regurgitation jets with 1 hugging the lateral wall, aneurysmal atrial septum, moderate tricuspid regurgitation with moderate pulmonary hypertension. She underwent cardiac catheterization 02/15/18 for evaluation. Ejection fraction was 45%. The left main had an 80% stenosis, proximal LAD less than 15. We were consulted for mitral valve replacement and coronary artery bypass grafting x 2 to the LAD and the circumflex. PAST MEDICAL HISTORY: Includes nonischemic cardiomyopathy, carotid artery stenosis, coronary artery disease, mitral regurgitation, aortic stenosis, tricuspid regurgitation, hypertension, hyperlipidemia, scleroderma, significant rheumatoid arthritis, and osteoporosis,. She has been off chronic steroids for about 8 years. She does take chronic RA medication. PAST SURGICAL HISTORY: Include Bi-V ICD 5 years ago with a generator change out 3 years ago, Medtr[employer] device,;bilateral knee replacement, 02/23 pt admitted electively for MVR, CABG x 2 Objective: Vital Signs Date Time Temp Pulse Resp B/P (MAP) Pulse Ox O2 Delivery O2 Flow Rate FiO2 02/23/18 05:45 97.6 97 20 165/88 (113) 97 (1) Hyperlipemia (2) Hypertension (3) Scleroderma (4) Coronary artery disease (5) Mitral regurgitation Cecelia Duke February 23, 2018 13:04
[2018-02-23] MEDS ORDERED: LACTATED RINGER'S 1000 ML INJ 500 ML IV PRN (13:17)
--- NOTE | 2018-02-23 13:18 | HHI.FF ---
Face to Face Verification Diagnosis: (1) Coronary artery disease (2) Hyperlipemia (3) Mitral regurgitation (4) Hypertension (5) Scleroderma (6) S/P MVR (mitral valve replacement) (7) S/P CABG x 2 Physical Therapy Order: Evaluate and Treat Home Health Nursing Order: Signs/symptoms of disease process Medication education-adverse effect Wound care and dressing changes Nursing assessment with vital signs Instructions: Heart and Vascular Surgery patients *Special attention to sternal dressing Mandatory frequency Assess and evaluation, 4 days in a row The next week 3X week 2 times a week for 4 weeks 1 time a week for 5 weeks Schedule Heart and Vascular patients for full 60 day certification period Initial visit Review Open Heart Surgery Discharge Instructions (Sternal precautions, Activity, Elastic hose, Incision care, Driving, Incentive spirometry, Smoking, [place], Work and other) Need Betadine to paint incision Medication reconciliation Importance of follow up care/ check on appointments Make calendar record temperature daily When to call [facility] at Home nurse, review instructions, phone list Incentive Spirometry, demonstration Visit 1- Begin discharge instruction for patient family and/ or caregiver using teach back method- Signs and symptoms of infection Disease characteristics Medicines and side effects Foods and nutrition/ appetite Infection control/ hand washing/ hygiene Visit 2- Continue teaching Discharge instructions- include additional information on smoking cessation , sternal dressing (sternal vac) Visit 3- Continue teaching- Cough and deep breathing, incision monitoring. Choose my plate Visit 4- Continue teaching- Discuss limitations Discuss how they are feeling Discuss progress toward goals Remaining visits- continue teaching and monitoring For any questions please call : Tuesday 8am-5pm Heart & Vascular Surgery Office ( Dr. Link & Dr. Howard), After Hours / Nights (5pm -8am) Weekends and Holidays Please call [facility] Cardiac Intermediate Care Unit (CIC) Charge Nurse Incentive spirometry Q1 hr x 10, while awake, also use acapella device hourly whole awake Sternal Breast Bone Precautions: NO pushing or pulling, ( pt must use sternal pillow to support chest with all activities and with coughing ( takes up to 3 months breast bone to heal ) All females to wear sternal bra , launder as needed Daily incision care: ok to shower daily, no tub bath. Wash all incisions with liquid dial soap, clean wash cloth to each site, rinse and pat dry. Observe for any signs of infection, such as drainage which is dark yellow, de la garza, green or foul smelling. Immediately report to the surgeon any drainage from the chest incision, or legs, and for any abnormal drainage from the chest tube sites. Notify surgeon if any temp >101.5 degrees F. When specialty dressing removed/ or if you do not have one, continue to shower daily as above, then rinse and pat incision dry and paint with betadine daily x 5 days. Allow steri strips to fall off if you have any. Avoid lotions, creams, salves, oils, etc. for the first month Please see attached forms for additional instructions regarding post Open Heart specialty wound vacuum dressings. STEPHANIE or Prevena , Dressing to be removed by Nursing staff on _03/02/[address] Howard patients , please obtain CBC, BMP, PA & Lat CXR in 2 weeks, results to Dr. Howard ( prescription will be given) ( ) (Tele: [phone]) , Valve replacement pts will need 2decho in 2 weeks with results to Dr. Howard . Please obtain 2 d echo at your pinsetter mechanic helper office if possible F/U appointment: as per DC instructions: PCP in 2 weeks, CV surgeon 2 weeks, Dirt Bike Mechanic 3-4 weeks For any questions regarding incisions/ dressing / meds / post op care or above Symptoms, Tuesday 8am-5pm Heart & Vascular Surgery Office ( Dr. Link & Dr. Howard), After Hours / Nights (5pm -8am) Weekends and Holidays Please call [facility] Cardiac Intermediate Care Unit (CIC) Charge Nurse PREVENA Single Use Negative Wound Therapy System Caregiver Instruction Sheet 1. A Prevena dressing system was applied to the chest incision during surgery , to promote wound healing. It works via a suction device (negative pressure wound therapy) to remove low to moderate levels of exudate (drainage) and infectious materials. We recommend that the device stay in place for up to seven days, from day of surgery. 2. Day of Surgery 02/23/18 Day of Removal ____03/02/18 3. The dressing should only be removed by a health child care attendant. Please arrange removal of device to coincide with Home Health visit and or with Nursing staff at Rehab 4. If skin reddening or irritation of skin occurs, or excessive drainage, please notify the Cardiovascular Surgeons office at [phone]. 5. Light showering is permissible; however the pump should be disconnected and placed in safe location, where it will not get wet. The dressing should not be exposed to direct spray or submerged in water. No bath tub / shower only. Ensure the end of the tubing attached to the dressing is facing down so that water does not enter the top of the tube. 6. To remove Prevena dressing: press purple button to turn off device / remove the suction. Then disconnect the tubing from the pump. The fixation strips should be stretched away from the skin and the dressing lifted at one corner and peeled back until it has been fully removed. 7. After removal, it is ok to shower daily using liquid dial soap and clean wash cloth, rinse and pat dry, and leave incision open to air dry. For any concerns regarding Prevena dressing, and or wounds, please contact Melanie Dyson, patient navigator at [phone] or notify the Cardiovascular Surgeons office at [phone]. I have seen patient Shreya Lane on 02/23/18. My clinical findings support the need for the requested home health care services because: Deconditioned w/ increased weakness I certify that my clinical findings support that this patient is homebound because: Post-op weakness (pt/ INR) Cecelia Duke February 23, 2018 13:17
--- NOTE | 2018-02-23 13:23 | PD.OP ---
cc: Ale Man MD; Skylar Howard MD Operative Report Date of Surgery: February 23, 2018 Preoperative Diagnosis: (1) CHF (congestive heart failure), NYHA class III (2) Mitral regurgitation (3) Coronary artery disease Postoperative Diagnosis: same Procedure: MVR with a 25 Magna Ease tissue valve CABG x 1 JIMENEZ to LAD EVH BREN Lysis of adhesions Anesthesia: Dr. Serrano Surgeon: Skylar Howard Maintenance Machinist(s): ROXANA Wagner Operation and Findings: The risks, benefits, complications, treatment options, and expected outcomes were discussed with the patient. The possibilities of reaction to medication, pulmonary aspiration, perforation of viscus, bleeding, recurrent infection, the need for additional procedures, failure to diagnose a condition, and creating a complication requiring transfusion or operation were discussed with the patient. The patient concurred with the proposed plan, giving informed consent. The site of surgery properly noted/marked. The patient was taken to Operating Room, identified as Shreya Lane and the procedure verified as Mitral Valve Repair or Replacement, CABG, EVH, BREN. A Time Out was held and the above information confirmed. Standard monitoring lines and Clark catheter were placed. General anesthesia was induced. The patient was prepped and draped in a sterile fashion. A median sternotomy was performed and electrocautery was used to obtain hemostasis. The left internal mammary artery was procured as a pedicle from the 7th rib to the 1st rib in the usual manner. Simultaneously left greater saphenous vein was procured from the left leg using a minimally invasive endoscopic technique. The vein was prepared for anastomosis and the leg wound was irrigated and closed in 2 layers. The pericardium was opened and a pericardial sling was created using interrupted 0 silk sutures. The patient was heparinized for cardiopulmonary bypass and the distal mammary pedicle was instrumented for anastomosis. The patient had pericardial adhesions secondary to previous epicardial lead placement which made the dissection difficult. The heart was instrumented for cardiopulmonary bypass in the usual manner. Antegrade Custodiol cardioplegia was employed. The patient was placed on cardiopulmonary bypass. An aortic cross- clamp was applied and the heart was arrested using Custodiol cardioplegia. After adequate arrest, the mid LAD was opened with a [place] blade and found to be a 1.5 millimeter good target. The left internal mammary artery was but was approximated to the LAD using a running 7 0 Prolene suture. The pedicle was attached to the epicardium using interrupted 5 0 silk suture. The OM artery was not grafted due to adhesions and the epicardial LV lead. The intra-atrial groove was dissected out using electrocautery. The left atrium was entered under direct vision and the atriotomy was extended mildly inferiorly and posteriorly. The left atrium was relatively small with a lipomatous septum. The mitral valve was exposed using an automatic retractor. The valve was analyzed and the posterior leaflet was heavily calcified. The anterior leaflet was thickened with A2 prolapse. There was also annular calcification. The annulus was sized to a 25 Magna Ease pericardial valve which was seated using several interrupted 2-0 Tycron pledgeted horizontal mattress sutures. The left atrium was closed using a running 4-0 Prolene suture and a small catheter was left in the left atrium to assist in venting the heart. The patient was systemically rewarmed. The aorta was vented. The heart was vigorously deaired with a clamp on. The clamp was removed, deairing continued. Intraoperative BREN was used to assess intracardiac air and the mitral valve replacement. Once the air was evacuated, the vent in the left atrium was removed and the suture line was secured. The heart was loaded and allowed to eject and the mitral valve was analyzed by BREN. The repair was excellent with no regurgitation. The patient was weaned from cardiopulmonary bypass. Protamine was given. There was no adverse reaction. Decannulation was carried out without incident. Wound was checked for hemostasis which was obtained using electrocautery. A 36 Pakistani mediastinal and 32 Pakistani left pleural chest was were placed and secured to the skin with 0 silk suture. The sternum was closed with stainless steel wire. The fascia was closed with 1. PDS. The subcutaneous tissue was closed using a running 2-0 Vicryl suture. The skin was closed with 4-0 Monocryl. Sterile dressings were placed. At the end of the operation, all sponge, instruments, and needle counts were correct. The patient was transferred to the CVICU in stable condition. Findings: Calcified mitral valve with prolapse as above. Adhesions secondary to epicardial LV lead. XC: 98 min CPB: 134 min Drains: mediastinal x 1} pleurel x 1 Specimens: Anterior leaflet Implants: 25 Black Magna Ease Complications: none Disposition: to CVICU in stable condition} Skylar Howard MD February 23, 2018 13:23
[2018-02-23] MEDS ORDERED: CALCIUM CHLORIDE 10% 1 GRAM/10 ML VIAL IV PUSH PRN (13:30)
[2018-02-23] MEDS ORDERED: DEXMEDETOMIDINE INJ 200 MCG in SODIUM CHLORIDE 0.9% INJ 50 ML IV PRN (13:30)
[2018-02-23] MEDS ORDERED: RESP: RACEPINEPHRINE 2.25% 0.5 ML NEB NEB PRN (13:30)
[2018-02-23] MEDS ORDERED: hydrALAZINE HCL 20 MG/ML VIAL IV PUSH PRN (13:30)
[2018-02-23] MEDS ORDERED: MAGNESIUM SULFATE INJ 2 GM in SODIUM CHLORIDE 0.9% INJ 100 ML IV PRN (13:30)
[2018-02-23] MEDS ORDERED: ALBUMIN 5% INJ 250 ML IV PRN (13:30)
[2018-02-23] MEDS ORDERED: ACETAMINOPHEN 325 MG TAB PO PRN (13:30)
[2018-02-23] MEDS ORDERED: SODIUM BICARBONATE 8.4% SOLN 50 MEQ/50 ML VIAL IV PUSH PRN ×2 (13:30)
[2018-02-23] MEDS ORDERED: POTASSIUM CHLOR 20 MEQ PREMIX 100 ML IV PRN ×3 (13:30)
[2018-02-23] MEDS ORDERED: oxyCODONE/ACETAMINOPHEN 5 MG/325 MG TAB PO PRN (13:30)
[2018-02-23] MEDS ORDERED: INSULIN REGULAR (IV INFUSION) 100 UNITS in SODIUM CHLORIDE 0.9% INJ 99 ML IV PRN (13:30)
[2018-02-23] MEDS ORDERED: Post-op Orders (for Pharmacy) OTHER ONE (13:30)
[2018-02-23] MEDS ORDERED: ACETAMINOPHEN 650 MG SUPP RECTAL PRN (13:30)
[2018-02-23] MEDS ORDERED: POTASSIUM CHLORIDE 20 MEQ CONTROLLED RELEASE TAB PO PRN ×2 (13:30)
[2018-02-23] MEDS ORDERED: traMADol HCL 50 MG TAB PO PRN (13:30)
[2018-02-23] MEDS: CALCIUM CHLORIDE INJ 1 GM in SODIUM CHLORIDE 0.9% INJ 100 ML IV PRN ×2 (14:34→21:31)
[2018-02-23] MEDS: ACETAMINOPHEN 1000 MG/100 ML 100 ML IV SCH ×2 (14:35→20:00)
--- NOTE | 2018-02-23 14:37 | RADRPT ---
EXAM DATE/TIME: 02/23/2018 13:56 [facility] COMPARISON: CHEST SINGLE AP, February 15, 2018, 13:05. INDICATIONS : S/p cabg MEDICAL HISTORY : Hypertension. Congestive heart failure. asthma SURGICAL HISTORY : Pacemaker. Hysterectomy. ENCOUNTER: Initial ACUITY: 1 day PAIN SCORE: Non-responsive. LOCATION: Bilateral chest FINDINGS: Interval median sternotomy and valve replacement with ET tube well above the casey, gastric tube tip and side-port within the stomach, mediastinal drain, left chest drainage tube, right subclavian cath eter tip right atrium. Cardiac pacer leads unchanged in position. There are patchy areas of diffuse bilateral interstitial infiltrate, similar to the preoperative exam. Both hemidiaphragms well delin eated. The heart is normal in size. 5 mm left apical pneumothorax. CONCLUSION: Postsurgical changes from median sternotomy and valve replacement. 5 mm left apical pneumothorax. P atchy diffuse bilateral interstitial infiltrates, stable. Isidro Mike MD on February 23, 2018 at 14:33 Board Certified Radiologist. This report was verified electronically.
[2018-02-23] MEDS: CLEVIDIPINE INJ 50 ML IV PRN ×2 (15:10→22:00)
[2018-02-23] MEDS ORDERED: SODIUM BICARBONATE 8.4% INJ 50 MEQ/50 ML SYR ONE (19:38)
[2018-02-23] MEDS ORDERED: SODIUM BICARBONATE 8.4% INJ 50 MEQ/50 ML SYR IV ONE (19:45)
[2018-02-23] MEDS ORDERED: EPINEPHrine HCL (1:10,000) 1 MG/10 ML SYRINGE ONE (19:47)
[2018-02-23] MEDS ORDERED: ATROPINE SULFATE 1 MG/10 ML SYRINGE ONE (19:47)
[2018-02-23 19:58] LABS: AUTOMATED NEUTROPHIL # 28.6 TH/MM3 (1.8-7.7); BASOPHIL # 0.1 TH/MM3 (0-0.2); BASOPHIL % 0.3 % (0.0-2.0); HEMOGLOBIN 11.6 GM/DL (11.6-15.3); LYMPH % 4.7 % (9.0-44.0); LYMPHOCYTE # 1.5 TH/MM3 (1.0-4.8); MEAN CELL VOLUME 84.4 FL (80.0-100.0); MEAN CORPUSCULAR HGB CONC 33.2 % (32.0-36.0); MEAN PLATELET VOLUME 7.2 FL (7.0-11.0); MONO % 3.2 % (0.0-8.0); NEUT % 91.8 % (16.0-70.0); PLATELET COUNT 257 TH/MM3 (150-450); RED BLOOD COUNT 4.15 MIL/MM3 (4.00-5.30); WHITE BLOOD COUNT 31.2 TH/MM3 (4.0-11.0)
[2018-02-23 20:06] LABS: INTERNATIONAL NORMALIZED RATIO 1.1 RATIO; PROTHROMBIN TIME - PATIENT 11.4 SEC (9.8-11.6)
[2018-02-23] MEDS ORDERED: IODIXANOL 320 MG/ML 10 ML VIAL (for Rad CT) IVCONTRAST ONE (20:12)
--- NOTE | 2018-02-23 20:17 | RADRPT ---
EXAM DATE/TIME: 02/23/2018 19:54 [facility] COMPARISON: No previous studies available for comparison. INDICATIONS : Stroke alert, left side weakness. RADIATION DOSE: 56.35 CTDIvol (mGy) MEDICAL HISTORY : Congestive heart failure. Hypertension. SURGICAL HISTORY : CABG ENCOUNTER: Initial ACUITY: 1 day PAIN SCALE: Non-responsive LOCATION: cranial TECHNIQUE: Multiple contiguous axial images were obtained of the head. Using automated exposure control and adj ustment of the mA and/or kV according to patient size, radiation dose was kept as low as reasonably a chievable to obtain optimal diagnostic quality images. DICOM format image data is available electro nically for review and comparison. FINDINGS: CEREBRUM: The ventricles are normal for age. No evidence of midline shift, mass lesion, hemorrhage or acute in farction. No extra-axial fluid collections are seen. POSTERIOR FOSSA: The cerebellum and brainstem are intact. The 4th ventricle is midline. The cerebellopontine angle i s unremarkable. EXTRACRANIAL: The visualized portion of the orbits is intact. SKULL: The calvaria is intact. No evidence of skull fracture. CONCLUSION: 1. No acute intracranial abnormalities. Mild white matter ischemic change. Mika Ruffin MD on February 23, 2018 at 20:06 Board Certified Radiologist. This report was verified electronically.
[2018-02-23] MEDS: SODIUM CHLOR 0.9% 1000 ML INJ 1,000 ML IV SCH (20:30)
--- NOTE | 2018-02-23 20:32 | RADRPT ---
EXAM DATE/TIME: 02/23/2018 19:54 [facility] COMPARISON: No previous studies available for comparison. INDICATIONS : Stroke alert, left side weakness. IV CONTRAST: 75 cc Visipaque (iodixanol) IV ; Cumulative dose for multiple exams. RADIATION DOSE: 9.73 CTDIvol (mGy) ; Combined studies MEDICAL HISTORY : Hypertension. Congestive heart failure. SURGICAL HISTORY : CABG ENCOUNTER: Initial ACUITY: 1 day PAIN SCALE: Non-responsive LOCATION: cranial TECHNIQUE: Volumetric scanning was performed using a multi-row detector CT scanner. The data was post processed with a variety of visualization algorithms including full volume maximum intensity projection, multi -planar sliding thin slab reformation, curved planar reformation, and surface rendering techniques. Using automated exposure control and adjustment of the mA and/or kV according to patient size, radiat ion dose was kept as low as reasonably achievable to obtain optimal diagnostic quality images. DICO M format image data is available electronically for review and comparison. FINDINGS: There is a tiny right pneumothorax and biapical lung disease. A subcutaneous air present anteriorly i n the chest wall and there is pneumomediastinum. Both common carotid arteries are patent. There is moderate calcified plaque at the left carotid bifur cation without stenosis. Left internal carotid artery is patent. On the right side there is minimal plaque at the bifurcation without stenosis. Right internal carotid artery is patent. Both vertebral arteries are patent within the neck. The anterior middle and posterior cerebral arteries are patent. Basilar artery is patent. CONCLUSION: 1. Mild plaque at the carotid bifurcations without hemodynamically significant stenosis. No stenosis or occlusion identified within the brain. Mika Ruffin MD on February 23, 2018 at 20:26 Board Certified Radiologist. This report was verified electronically.
--- NOTE | 2018-02-23 20:34 | RADRPT ---
EXAM DATE/TIME: 02/23/2018 19:54 [facility] COMPARISON: No previous studies available for comparison. INDICATIONS : Stroke alert, left side weakness. IV CONTRAST: 75 cc Visipaque (iodixanol) IV ; Cumulative dose for multiple exams. RADIATION DOSE: 9.73 CTDIvol (mGy) ; Combined studies MEDICAL HISTORY : Hypertension. Congestive heart failure. SURGICAL HISTORY : CABG ENCOUNTER: Initial ACUITY: 1 day PAIN SCALE: Non-responsive LOCATION: neck Elevated flow velocities and ICA/CCA ratios have been found to correlate with increased degrees of vessel stenosis, calculated as percentage of diameter relative to a normal segment of distal ICA/CCA. TECHNIQUE: Volumetric scanning was performed using a multirow detector CT scanner. The data was post processed with a variety of visualization algorithms including full-volume maximum intensity projection, multip lanar sliding thin-slab reformation, curved-planar reformation, and surface-rendering techniques. Us ing automated exposure control and adjustment of the mA and/or kV according to patient size, radiatio n dose was kept as low as reasonably achievable to obtain optimal diagnostic quality images. DICOM f ormat image data is available electronically for review and comparison. FINDINGS: There is a small right-sided pneumothorax. There is subcutaneous air in the anterior chest wall and i s some pneumomediastinum. Presumed hematoma is seen in the supraclavicular region and between the cla vicle heads above the manubrium. The great vessel origins are patent. Both common carotid arteries are patent. Mild plaque at the hartman tid bifurcations without stenosis. Internal carotid arteries and vertebral arteries are patent within the neck. CONCLUSION: 1. Mild plaque at the carotid bifurcations without hemodynamically significant stenosis. 2. Apical lung disease with small right pneumothorax. There is some pneumomediastinum and air in the anterior subcutaneous tissues with probable hematoma between the clavicle heads. Mika Ruffin MD on February 23, 2018 at 20:30 Board Certified Radiologist. This report was verified electronically.
[2018-02-23] MEDS ORDERED: LORazepam 2 MG/ML VIAL IV PUSH PRN (20:45)
[2018-02-23 20:50] LABS: TROPONIN I 8.41 NG/ML (0.02-0.05)
[2018-02-23] MEDS: SODIUM CHLORIDE 0.9% FLUSH 10 ML FLUSH IV FLUSH SCH (21:00)
[2018-02-23] MEDS: ASPIRIN 300 MG SUPP RECTAL SCH (21:00)
--- NOTE | 2018-02-23 21:18 | MB ---
cc: Len St MD, PhD Len St MD PhD DATE: 02/23/2018 REASON FOR CONSULTATION: Stroke alert. HISTORY OF PRESENT ILLNESS: Ms. Lane is a 72-year-old woman who is status post surgery today for a CABG x 2 and mitral valve replacement. This evening, she had a sudden episode of loss of consciousness, generalized shaking activity. She then was nonresponsive following this. Since then has been waking up, following commands but appears to be weak in the left side. A stroke alert was called. PAST MEDICAL HISTORY: She has a history of cardiomyopathy, mitral regurgitation, pulmonary hypertension, hypertension, hyperlipidemia, scleroderma, rheumatoid arthritis, osteoporosis, carotid artery stenosis, knee replacement surgery, appendectomy, cataract surgery. MEDICATIONS: 1. Aspirin 81 mg daily. 2. Pravachol 20 mg daily. 3. Multivitamin 4. Cefazolin 5. Tylenol 6. Clavitadine 7. Oxycodone p.r.n. 8. Tylenol p.r.n. 9. Zofran p.r.n. 10. Fentanyl p.r.n. 11. Apresoline p.r.n. 12. Lopressor p.r.n. NEUROLOGICAL EXAM: Blood pressure 129/76, pulse 69, temperature 97.5 degrees. Higher cortical functions: Lethargic, but arousable. She does follow simple commands. Speech is mildly dysarthric. Cranial nerves: She does appear to have a right gaze. There is no facial droop. On motor exam, she appears to be weak in the left arm and left leg compared with the right, rated at about 4/5. She does have some joint deformity, left arm due to probably her rheumatoid arthritis. Reflexes are symmetric. IMAGING STUDIES: CT of the brain is unremarkable for any acute change. CT angiogram of the brain:There is no evidence of large vessel occlusion. CTA neck pending. LABORATORY DATA: The white count is 31,200, hemoglobin 11.6, hematocrit 35%, platelet count 257,000. Sodium is 160, potassium 3.8, chloride 95, BUN is 16, creatinine 0.6, glucose 135. Coags are pending. IMPRESSION: Possible seizure with postictal state, possible right hemisphere transient ischemic attack versus stroke. RECOMMENDATION: The patient is not a candidate for TPA because of her recent surgery. We did do a CT angiogram, however, there is no evidence of large vessel occlusion and she is not a candidate for interventional thrombectomy. At the present time, would recommend treatment with aspirin 300 mg daily suppository. We will also start Keppra because of the possibility of seizure. We will obtain an electroencephalogram. She is not a candidate for an MRI of the brain because of the pacemaker. Thank you for asking me to see this patient in consultation. Len St MD, PhD LANE/SA , 08:43 PM , 09:16 PM
[2018-02-23] MEDS: levETIRAcetam INJ 500 MG in SODIUM CHLORIDE 0.9% INJ 100 ML IV SCH (21:20)
[2018-02-23 21:23] LABS: BANDS 10 % (0-6); LYMPHOCYTES 2 % (9-44); MONOCYTES 2 % (0-8); POLYS (SEG NEUTROPHILS) 86 % (16-70)
--- NOTE | 2018-02-23 22:04 | PD.CONS ---
HPI Service Critical Care Medicine Consult Requested By Primary Care Physician Finesse Chatman MD History of Present Illness 72-year-old patient with a history of nonischemic cardiomyopathy and history of mitral regurgitation, complaining of some shortness of breath with exertion for the past couple of weeks and some tightness in her chest when lying down, had a echocardiogram 01/18/2018 which showed an ejection fraction of 55%, mild to moderate aortic stenosis, severe mitral regurgitation, 2 regurgitation jets with 1 hugging the lateral wall, aneurysmal atrial septum, moderate tricuspid regurgitation with moderate pulmonary hypertension. She underwent cardiac catheterization 02/15/18 with findings of the left main had an 80% stenosis, proximal LAD less than 15. She underwent CABG x 2 and mitral valve replacement today. The procedure was uncomplicated and the patient was successfully extubated as expected. This evening, she had a sudden episode of loss of consciousness, generalized shaking activity. She then was nonresponsive. During my assessment she has already been waking up, following commands but appears to be weak in the left side. A stroke alert was called however CT head and CTA of the head and neck did not show any significant abnormalities. Review of Systems ROS Unable to obtain patient still altered Past Family Social History Allergies: Coded Allergies: Sulfa (Sulfonamide Antibiotics) (Verified Allergy, Severe, Rash, 02/23/18) Past Medical History nonischemic cardiomyopathy, carotid artery stenosis, coronary artery disease, mitral regurgitation, aortic stenosis, tricuspid regurgitation, hypertension, hyperlipidemia, scleroderma, rheumatoid arthritis, osteoporosis Past Surgical History Bi-V ICD 5 years ago with a generator change out 3 years ago, [employer] device Bilateral knee replacement, Reported Medications Reported Meds & Active Scripts Active Reported Tramadol (Tramadol HCl) 50 Mg Tab 50 Mg PO Q6H PRN Spironolactone 25 Mg Tab 12.5 Mg PO DAILY Proventil Hfa 6.7 GM Inh (Albuterol Sulfate) 90 Mcg/Act Aer 2 Puff INH Q6H PRN Pravastatin 20 Mg Tab 20 Mg PO DAILY Omeprazole 20 Mg Tab 20 Mg PO DAILY Leflunomide 20 Mg Tab 20 Mg PO DAILY Digoxin 0.125 Mg Tab 0.125 Mg PO DAILY Centrum (Multiple Vitamins W/ Minerals) 1 Chew 1 Tab CHEW DAILY Carvedilol 12.5 Mg Tab 12.5 Mg PO BID Active Ordered Medications Current Medications Medications (Trade) Dose Ordered Sig/Tommie Route PRN Reason Start Time Stop Time Status Last Admin Dose Admin Lactated Ringer's 1,000 ml @ 30 mls/hr Q24H PRN IV SEE LABEL COMMENTS 02/23/18 05:45 02/26/18 05:44 02/23/18 05:45 Sodium Chloride 500 ml @ 30 mls/hr [id number] PRN IV SEE LABEL COMMENTS 02/23/18 05:45 02/26/18 05:44 Povidone Iodine (Betadine 5% Antisepsis Kit) 1 applic SAP PI ARCHITECT PRN EACH NARE SEE LABEL COMMENTS 02/23/18 05:45 02/26/18 05:44 02/23/18 06:00 Chlorhexidine Gluconate (Chlorhexidine 2% Cloth) 3 pack SAP PI ARCHITECT PRN TOPICAL SEE LABEL COMMENTS 02/23/18 05:45 02/26/18 05:44 02/23/18 05:30 Insulin Human Regular (NovoLIN R INJ) See Protocol Table ... SAP PI ARCHITECT PRN SQ SEE PROTOCOL TABLE 02/23/18 05:45 02/26/18 05:44 Sodium Chloride (NS Flush) 2 ml UNSCH PRN IV FLUSH FLUSH AFTER USING IV ACCESS 02/23/18 05:45 Papaverine HCl 60 mg/Nitroglycerin 100 mcg/Diltiazem HCl 100 mg/Sodium Chloride 100 ml @ 0 mls/hr SAP PI ARCHITECT IRRIGATION 02/23/18 05:45 03/01/18 05:44 02/23/18 13:25 Metoprolol Tartrate (Lopressor) 12.5 mg SAP PI ARCHITECT PO 02/23/18 05:45 03/01/18 05:44 Chlorhexidine Gluconate (Hibiclens 4% Top Soln) 1 applic SAP PI ARCHITECT TOPICAL 02/23/18 05:45 03/01/18 05:44 Dextrose (D50w (Vial) Inj) 50 ml UNSCH PRN IV PUSH HYPOGLYCEMIA-SEE COMMENTS 02/23/18 05:45 Sodium Chloride (NS Flush) 2 ml BID IV FLUSH 02/23/18 21:00 Sodium Chloride (NS Flush) 2 ml UNSCH PRN IV FLUSH FLUSH AFTER USING IV ACCESS 02/23/18 13:30 Dexmedetomidine HCl 200 mcg/ Sodium Chloride 52 ml @ 2.48 mls/hr TITRATE PRN IV SEDATION 02/23/18 13:30 Clevidipine 50 ml @ 2 mls/hr TITRATE PRN IV Maintain BP < 140/90 mmHg 02/23/18 13:30 02/23/18 15:10 Albumin Human 250 ml @ 250 mls/hr UNSCH PRN IV SEE LABEL COMMENTS 02/23/18 13:30 Lactated Ringer's 500 ml @ 500 mls/hr Q1H PRN IV SEE LABEL COMMENTS 02/23/18 13:17 Cefazolin Sodium 1000 mg/Sodium Chloride 100 ml @ 200 mls/hr Q8H IV 02/23/18 17:00 02/25/18 01:29 02/23/18 16:47 Pantoprazole Sodium (Protonix) 40 mg DAILY@06 PO 02/24/18 06:00 Acetaminophen (Tylenol) 650 mg Q4H PRN PO TEMPERATURE > 101 F 02/23/18 13:30 Acetaminophen (Tylenol Supp) 650 mg Q4H PRN RECTAL TEMPERATURE > 101 F 02/23/18 13:30 Acetaminophen 100 ml @ 400 mls/hr Q6H IV 02/23/18 14:00 02/24/18 08:14 02/23/18 14:35 Oxycodone/ Acetaminophen (Percocet 5-325 Mg) 1 tab Q3H PRN PO PAIN SCALE 1 TO 5 02/23/18 13:30 Fentanyl Citrate (fentaNYL INJ) 25 mcg Q1H PRN IV PUSH BREAKTHROUGH PAIN 02/23/18 13:30 02/23/18 19:02 Ondansetron HCl (Zofran Inj) 4 mg Q6H PRN IV PUSH NAUSEA OR VOMITING 02/23/18 13:30 Hydralazine HCl (Apresoline Inj) 10 mg Q4H PRN IV PUSH SEE LABEL COMMENTS 02/23/18 13:30 Metoprolol Tartrate (Lopressor Inj) 2.5 mg Q1H PRN IV PUSH SEE LABEL COMMENTS 02/23/18 13:30 Potassium Chloride 100 ml @ 50 mls/hr UNSCH PRN IV SEE LABEL COMMENTS 02/23/18 13:30 Potassium Chloride 100 ml @ 50 mls/hr UNSCH PRN IV SEE LABEL COMMENTS 02/23/18 13:30 Potassium Chloride (KCl) 20 meq UNSCH PRN PO SEE LABEL COMMENTS 02/23/18 13:30 Potassium Chloride (KCl) 40 meq UNSCH PRN PO SEE LABEL COMMENTS 02/23/18 13:30 Magnesium Sulfate 2 gm/Sodium Chloride 104 ml @ 100 mls/hr UNSCH PRN IV SEE LABEL COMMENTS 02/23/18 13:30 Magnesium Sulfate 2 gm/Sodium Chloride 104 ml @ 50 mls/hr UNSCH PRN IV SEE LABEL COMMENTS 02/23/18 13:30 Calcium Chloride 1 gm/Sodium Chloride 110 ml @ 100 mls/hr UNSCH PRN IV SEE LABEL COMMENTS 02/23/18 13:30 02/23/18 21:31 Calcium Chloride (Calcium Chloride Inj) 0.5 gm UNSCH PRN IV PUSH SEE LABEL COMMENTS 02/23/18 13:30 Insulin Human Regular 100 units/ Sodium Chloride 100 ml @ 3 mls/hr TITRATE PRN IV for blood glucose control 02/23/18 13:30 Dextrose (D50w (Vial) Inj) 50 ml UNSCH PRN IV PUSH HYPOGLYCEMIA-SEE COMMENTS 02/23/18 13:30 Sodium Bicarbonate (Sodium Bicarbonate 8.4% Inj) 50 meq UNSCH PRN IV PUSH SEE LABEL COMMENTS 02/23/18 13:30 Sodium Bicarbonate (Sodium Bicarbonate 8.4% Inj) 100 meq UNSCH PRN IV PUSH SEE LABEL COMMENTS 02/23/18 13:30 Albuterol/ Ipratropium (Duoneb Neb) 1 ampule Q2HR NEB PRN NEB WHEEZING 02/23/18 13:30 Racepinephrine (Racepinephrine 2.25% Neb) 0.5 ml UNSCH X1 PRN NEB STRIDOR 02/23/18 13:30 02/23/18 23:59 Multivitamins/ Minerals Therapeutic (Theragran M Tab) 1 tab DAILY PO 02/24/18 09:00 Pravastatin Sodium (Pravachol) 20 mg DAILY PO 02/24/18 09:00 Tramadol HCl (Ultram) 50 mg Q6H PRN PO PAIN SCALE 6-10 02/23/18 13:30 Patient Own Medication PT OWN MED: (Leflunomide 20 ... DAILY PO 02/24/18 09:00 Future Hold Sodium Chloride 1,000 ml @ 70 mls/hr [id number] IV 02/23/18 20:30 02/23/18 20:30 Aspirin (Aspirin Supp) 300 mg DAILY RECTAL 02/23/18 21:00 02/23/18 21:00 Levetriacetam 500 mg/Sodium Chloride 105 ml @ 420 mls/hr Q12HR IV 02/23/18 21:00 02/23/18 21:20 Lorazepam (Ativan Inj) 1 mg Q4H PRN IV PUSH SEIZURES 02/23/18 20:45 Family History No family history of cancer or early coronary artery disease Social History Denies alcohol, tobacco, or illicit drug abuse Physical Exam Vital Signs Vital Signs Date Time Temp Pulse Resp B/P (MAP) Pulse Ox O2 Delivery O2 Flow Rate FiO2 02/23/18 19:15 97 Nasal Cannula 4.00 02/23/18 18:00 79 144/58 02/23/18 18:00 96 Nasal Cannula 4.00 02/23/18 17:00 73 130/58 02/23/18 15:10 69 149/69 02/23/18 15:00 99 Mechanical Ventilator 40 02/23/18 15:00 40 02/23/18 15:00 97.5 69 18 129/76 (93) 99 149/69 (95) 02/23/18 15:00 69 02/23/18 14:00 98.3 68 16 119/69 (86) 98 123/58 (79) 02/23/18 14:00 69 02/23/18 14:00 100 Mechanical Ventilator 40 02/23/18 14:00 40 02/23/18 13:45 98 50 02/23/18 05:45 97.6 97 20 165/88 (113) 97 Physical Exam GENERAL: Well-nourished, well-developed patient. Lethargic but arousable and following commands. SKIN: Warm and dry. HEAD: Normocephalic. EYES: No scleral icterus. No injection or drainage. NECK: Supple, trachea midline. No JVD or lymphadenopathy. CARDIOVASCULAR: Regular rate and rhythm without murmurs, gallops, or rubs. RESPIRATORY: Breath sounds equal bilaterally. No accessory muscle use. GASTROINTESTINAL: Abdomen soft, non-tender, nondistended. MUSCULOSKELETAL: No cyanosis, or edema. BACK: Nontender without obvious deformity. NEURO EXAM: Lethargic, but arousable. She does follow simple commands. Speech is mildly dysarthric. Cranial nerves: She does appear to have a right gaze. There is no facial droop. Motor function exam, she appears to be weak in the left arm and left leg compared with the right, rated at about 4/5. She does have some joint deformity , left arm due to probably her rheumatoid arthritis. Reflexes are symmetric. Laboratory Laboratory Tests Test 02/23/18 19:35 White Blood Count 31.2 Red Blood Count 4.15 Hemoglobin 11.6 Bedside Hemoglobin 9.9 Hematocrit 35.0 Bedside Hematocrit 29.0 Mean Corpuscular Volume 84.4 Mean Corpuscular Hemoglobin 28.0 Mean Corpuscular Hemoglobin Concent 33.2 Red Cell Distribution Width 17.0 Platelet Count 257 Mean Platelet Volume 7.2 Neutrophils (%) (Auto) 91.8 Lymphocytes (%) (Auto) 4.7 Monocytes (%) (Auto) 3.2 Eosinophils (%) (Auto) 0.0 Basophils (%) (Auto) 0.3 Neutrophils # (Auto) 28.6 Lymphocytes # (Auto) 1.5 Monocytes # (Auto) 1.0 Eosinophils # (Auto) 0.0 Basophils # (Auto) 0.1 CBC Comment AUTO DIFF Differential Total Cells Counted 100 Neutrophils % (Manual) 86 Band Neutrophils % 10 Lymphocytes % 2 Monocytes % 2 Neutrophils # (Manual) 30.0 Differential Comment FINAL DIFF MANUAL Platelet Estimate NORMAL Platelet Morphology Comment NORMAL Prothrombin Time 11.4 Prothromb Time International Ratio 1.1 Activated Partial Thromboplast Time 39.8 Fibrinogen 220 Bedside Sodium 160 Bedside Potassium 3.8 Bedside Chloride 95 Bedside Blood Urea Nitrogen 16 Bedside Creatinine 0.6 Bedside Glucose 135 Lactic Acid Level 2.2 Total Creatine Kinase 421 Creatine Kinase MB 36.4 Creatine Kinase MB % 8.6 Troponin I 8.41 Result Diagram: 02/23/18 1935 Imaging Last 24 hours Impressions Neck CTA 02/23/18 0000 Signed Impressions: Service Date/Time: February 19:54 - CONCLUSION: 1. Mild plaque at the carotid bifurcations without hemodynamically significant stenosis. 2. Apical lung disease with small right pneumothorax. There is some pneumomediastinum and air in the anterior subcutaneous tissues with probable hematoma between the clavicle heads. Mika Ruffin MD Head CTA 02/23/18 0000 Signed Impressions: Service Date/Time: February 19:54 - CONCLUSION: 1. Mild plaque at the carotid bifurcations without hemodynamically significant stenosis. No stenosis or occlusion identified within the brain. Mika Ruffin MD Head CT 02/23/18 0000 Signed Impressions: Service Date/Time: February 19:54 - CONCLUSION: 1. No acute intracranial abnormalities. Mild white matter ischemic change. Mika Ruffin MD Chest X-Ray 02/23/18 0000 Signed Impressions: Service Date/Time: February 13:56 - CONCLUSION: Postsurgical changes from median sternotomy and valve replacement. 5 mm left apical pneumothorax. Patchy diffuse bilateral interstitial infiltrates, stable. Isidro Mike MD Septic Shock Reassessment Septic shock perfusion: reassessment completed Assessment and Plan Assessment and Plan Altered mental status -Possible seizure versus TIA -Postictal state -CT and CT negative -Unable to obtain an MRI due to permanent pacemaker in place -Not a candidate for TPA due to recent surgery -Neurological consultation appreciated -Keppra Hypertension -Hydralazine and Metoprolol as needed to keep his BP less than 160 -Metoprolol scheduled Coronary artery disease -Status post CABG -Management per cardiothoracic surgeon Metabolic acidosis -Resolving with sodium bicarbonate -Continue to monitor Rheumatoid arthritis -Chronic steroid use -Methylprednisolone DVT GI prophylaxis -Tests SCDs -Subcu heparin -Pepcid Critical Care: The total critical care time was 35 minutes. Time to perform other separately billable procedures was not included in the critical care time. Gordon Tejeda MD February 23, 2018 10:04 pm
[2018-02-24] VITALS (11 sets, daily range): BP systolic 122–164; BP diastolic 46–92; PULSE 83–105; RESP 16–20; TEMP 98–99.8; O2SAT 94–99
[2018-02-24] MEDS: CLEVIDIPINE INJ 50 ML IV PRN ×3 (01:04→04:48)
[2018-02-24] MEDS: ACETAMINOPHEN 1000 MG/100 ML 100 ML IV SCH ×2 (02:00→08:00)
[2018-02-24 04:20] LABS: HEMATOCRIT 33.8 % (35.0-46.0); HEMOGLOBIN 11.4 GM/DL (11.6-15.3); MEAN CELL VOLUME 84.5 FL (80.0-100.0); MEAN CORPUSCULAR HEMOGLOBIN 28.6 PG (27.0-34.0); MEAN CORPUSCULAR HGB CONC 33.8 % (32.0-36.0); MEAN PLATELET VOLUME 7.9 FL (7.0-11.0); PLATELET COUNT 265 TH/MM3 (150-450); RED CELL DISTRIBUTION WIDTH 17.7 % (11.6-17.2); WHITE BLOOD COUNT 30.2 TH/MM3 (4.0-11.0)
[2018-02-24 04:45] LABS: BICARBONATE 22.7 MEQ/L (21.0-32.0); CALCIUM 8.2 MG/DL (8.5-10.1); CREATININE 0.53 MG/DL (0.50-1.00); MAGNESIUM 1.5 MG/DL (1.5-2.5)
[2018-02-24] MEDS: ONDANSETRON HCL 4 MG/2 ML VIAL IV PUSH PRN (04:48)
[2018-02-24] MEDS: MAGNESIUM SULFATE INJ 2 GM in SODIUM CHLORIDE 0.9% INJ 100 ML IV PRN (05:00)
--- NOTE | 2018-02-24 05:40 | RADRPT ---
EXAM DATE/TIME: 02/24/2018 05:07 [facility] COMPARISON: CHEST SINGLE AP, February 23, 2018, 13:56. CHEST SINGLE AP, February 15, 2018, 13:05. INDICATIONS : Statust post CABG. MEDICAL HISTORY : Hypertension. Congestive heart failure. SURGICAL HISTORY : CABG ENCOUNTER: Subsequent ACUITY: 1 day PAIN SCORE: Non-responsive. LOCATION: Bilateral chest FINDINGS: There has been interval extubation and removal of nasogastric tube. Right subclavian central catheter and pacemaker remain in place. Left thoracostomy tube and midline chest tube are again noted. Minima l left apical pneumothorax is grossly unchanged. Consolidation in the medial right base and diffuse i nterstitial prominence elsewhere unchanged. Cardiac contours are unchanged. CONCLUSION: Interval extubation. Stable aeration Luis Eduardo Mahmood MD on February 24, 2018 at 5:37 Board Certified Radiologist. This report was verified electronically.
[2018-02-24] MEDS: PANTOPRAZOLE SODIUM 40 MG VIAL IV PUSH SCH (06:00)
[2018-02-24] MEDS ORDERED: PANTOPRAZOLE SOD 40 MG DELAYED RELEASE TAB PO SCH (06:00)
[2018-02-24] MEDS: ASPIRIN 300 MG SUPP RECTAL SCH (09:00)
[2018-02-24] MEDS: PRAVASTATIN SOD 20 MG TAB PO SCH (09:00)
[2018-02-24] MEDS ORDERED: ASPIRIN 81 MG CHEW TAB PO SCH (09:00)
[2018-02-24] MEDS ORDERED: MULTIVITAMINS/MINERALS THERAPEUTIC TAB PO SCH (09:00)
[2018-02-24] MEDS: SODIUM CHLORIDE 0.9% FLUSH 10 ML FLUSH IV FLUSH SCH ×2 (09:13→22:00)
[2018-02-24] MEDS ORDERED: BISACODYL 10 MG SUPP RECTAL PRN (09:15)
[2018-02-24] MEDS ORDERED: SOD PHOSPHATE/SOD BIPHOSPHATE (ADULT) ENEMA 133ML RECTAL PRN (09:15)
[2018-02-24] MEDS ORDERED: GLUCAGON 1 MG/ML VIAL OTHER PRN ×2 (09:15→17:45)
[2018-02-24] MEDS ORDERED: ACETAMINOPHEN 1000 MG/100 ML 100 ML IV PRN (09:15)
[2018-02-24] MEDS ORDERED: DEXTROSE 50% IN WATER 50 ML VIAL(D50) IV PUSH PRN ×2 (09:15→17:45)
[2018-02-24] MEDS: levETIRAcetam INJ 500 MG in SODIUM CHLORIDE 0.9% INJ 100 ML IV SCH ×2 (09:42→21:59)
--- NOTE | 2018-02-24 09:56 | HHI.CCPN ---
Subjective Remarks/Hospital Course 72-year-old patient with a history of nonischemic cardiomyopathy and history of mitral regurgitation, complaining of some shortness of breath with exertion for the past couple of weeks and some tightness in her chest when lying down, had a echocardiogram 01/18/2018 which showed an ejection fraction of 55%, mild to moderate aortic stenosis, severe mitral regurgitation, 2 regurgitation jets with 1 hugging the lateral wall, aneurysmal atrial septum, moderate tricuspid regurgitation with moderate pulmonary hypertension. She underwent cardiac catheterization 02/15/18 with findings of the left main had an 80% stenosis, proximal LAD less than 15. She underwent CABG x 2 and mitral valve replacement today. The procedure was uncomplicated and the patient was successfully extubated as expected. This evening, she had a sudden episode of loss of consciousness, generalized shaking activity. She then was nonresponsive. During my assessment she has already been waking up, following commands but appears to be weak in the left side. A stroke alert was called however CT head and CTA of the head and neck did not show any significant abnormalities. 02/24 Patient is lying in bed in NAD. Afebrile. Objective Vital Signs Date Time Temp Pulse Resp B/P (MAP) Pulse Ox O2 Delivery O2 Flow Rate FiO2 02/24/18 08:50 16 02/24/18 07:18 98.7 94 122/46 (71) 99 02/24/18 07:13 Nasal Cannula 4.00 02/23/18 19:52 100 Intake and Output 02/24/18 02/24/18 02/25/18 08:00 16:00 00:00 Intake Total 350 ml 100 ml Output Total 1460 ml Balance -1110 ml 100 ml Result Diagram: 02/24/18 0400 02/24/18 0400 Other Results Laboratory Tests Test 02/23/18 19:35 02/24/18 04:00 White Blood Count 31.2 TH/MM3 30.2 TH/MM3 Red Blood Count 4.15 MIL/MM3 4.00 MIL/MM3 Hemoglobin 11.6 GM/DL 11.4 GM/DL Bedside Hemoglobin 9.9 G/DL Hematocrit 35.0 % 33.8 % Bedside Hematocrit 29.0 % Mean Corpuscular Volume 84.4 FL 84.5 FL Mean Corpuscular Hemoglobin 28.0 PG 28.6 PG Mean Corpuscular Hemoglobin Concent 33.2 % 33.8 % Red Cell Distribution Width 17.0 % 17.7 % Platelet Count 257 TH/MM3 265 TH/MM3 Mean Platelet Volume 7.2 FL 7.9 FL Neutrophils (%) (Auto) 91.8 % Lymphocytes (%) (Auto) 4.7 % Monocytes (%) (Auto) 3.2 % Eosinophils (%) (Auto) 0.0 % Basophils (%) (Auto) 0.3 % Neutrophils # (Auto) 28.6 TH/MM3 Lymphocytes # (Auto) 1.5 TH/MM3 Monocytes # (Auto) 1.0 TH/MM3 Eosinophils # (Auto) 0.0 TH/MM3 Basophils # (Auto) 0.1 TH/MM3 CBC Comment AUTO DIFF Differential Total Cells Counted 100 Neutrophils % (Manual) 86 % Band Neutrophils % 10 % Lymphocytes % 2 % Monocytes % 2 % Neutrophils # (Manual) 30.0 TH/MM3 Differential Comment FINAL DIFF MANUAL Platelet Estimate NORMAL Platelet Morphology Comment NORMAL Prothrombin Time 11.4 SEC Prothromb Time International Ratio 1.1 RATIO Activated Partial Thromboplast Time 39.8 SEC Fibrinogen 220 mg/dL Bedside Sodium 160 MMOL/L Bedside Potassium 3.8 MMOL/L Bedside Chloride 95 MMOL/L Bedside Blood Urea Nitrogen 16 MG/DL Bedside Creatinine 0.6 MG/DL Bedside Glucose 135 MG/DL Lactic Acid Level 2.2 mmol/L Total Creatine Kinase 421 U/L Creatine Kinase MB 36.4 NG/ML Creatine Kinase MB % 8.6 % Troponin I 8.41 NG/ML Blood Urea Nitrogen 20 MG/DL Creatinine 0.53 MG/DL Random Glucose 150 MG/DL Calcium Level 8.2 MG/DL Magnesium Level 1.5 MG/DL Sodium Level 142 MEQ/L Potassium Level 4.6 MEQ/L Chloride Level 107 MEQ/L Carbon Dioxide Level 22.7 MEQ/L Anion Gap 12 MEQ/L Estimat Glomerular Filtration Rate 113 ML/MIN Imaging Last Impressions Chest X-Ray 02/24/18 0500 Signed Impressions: Service Date/Time: Saturday, February 24, 2018 05:07 - CONCLUSION: Interval extubation. Stable aeration Luis Eduardo Mahmood MD Neck CTA 02/23/18 0000 Signed Impressions: Service Date/Time: February 19:54 - CONCLUSION: 1. Mild plaque at the carotid bifurcations without hemodynamically significant stenosis. 2. Apical lung disease with small right pneumothorax. There is some pneumomediastinum and air in the anterior subcutaneous tissues with probable hematoma between the clavicle heads. Mika Ruffin MD Head CTA 02/23/18 0000 Signed Impressions: Service Date/Time: February 19:54 - CONCLUSION: 1. Mild plaque at the carotid bifurcations without hemodynamically significant stenosis. No stenosis or occlusion identified within the brain. Mika Ruffin MD Head CT 02/23/18 0000 Signed Impressions: Service Date/Time: February 19:54 - CONCLUSION: 1. No acute intracranial abnormalities. Mild white matter ischemic change. Mika Ruffin MD Objective Remarks GENERAL: Well-nourished, well-developed patient. Lethargic but arousable and following commands. SKIN: Warm and dry. HEAD: Normocephalic. EYES: No scleral icterus. No injection or drainage. NECK: Supple, trachea midline. No JVD or lymphadenopathy. CARDIOVASCULAR: Regular rate and rhythm without murmurs, gallops, or rubs. RESPIRATORY: Breath sounds equal bilaterally. No accessory muscle use. GASTROINTESTINAL: Abdomen soft, non-tender, nondistended. MUSCULOSKELETAL: No cyanosis, or edema. BACK: Nontender without obvious deformity. NEURO EXAM: Lethargic, but arousable. She does follow simple commands. Speech is mildly dysarthric. Cranial nerves: She does appear to have a right gaze. There is no facial droop. Motor function exam, she appears to be weak in the left arm and left leg compared with the right, rated at about 4/5. She does have some joint deformity, left arm due to probably her rheumatoid arthritis. A/P Assessment and Plan 1)Resp Insuff 2)Altered mental status 3)Possible seizure versus TIA 4)Hypertension 5)Coronary artery disease -Status post CABGx1, MVR 6)Rheumatoid arthritis 7)Leukocytosis 8) Elevated trop Plan Neuro: Monitor neuro status, avoid sedatives CT brain: No acute intracranial abnormalities CTA brain: Mild plaque at the carotid bifurcations without hemodynamically significant stenosis. No stenosis or occlusion identified within the brain. CTA neck: Mild plaque at the carotid bifurcations without hemodynamically significant stenosis. MRI brain couldnt be done to due pacemaker Seen by Neuro-Dr. St, continue ASA and Keppra Pulm: Continue with oxygen keep sats >92% Bronchodilators CV: Monitor HR and BP keep MAP>65mmHg Monitor CT drainage, CT management per CTS : Monitor renal function, I/O's, electrolytes replacement per protocol GI: Speech eval, diet per speech, on Protonix 40mg daily ID: Monitor for signs of infections ( Fever, WBC) check UA with cx if indicated blood cultures place on Zosyn empirically Heme: Monitor CBC Endo: SSI for glycemic control DVT GI prophylaxis -Tests SCDs, start DVT prophylaxis when cleared by CTS -Protonix Will sign off Level 2 Umu Rodriguez MD February 24, 2018 09:56
[2018-02-24] MEDS: INSULIN ASPART SUPPLEMENTAL SCALE SQ SCH ×3 (10:00→17:15)
[2018-02-24 11:32] LABS: BILIRUBIN, URINE NEG (NEG); BLOOD, URINE NEG (NEG); GLUCOSE,URINE NEG (NEG); KETONE, URINE TRACE mg/dL (NEG); NITRITE,URINE NEG (NEG); URINE COLOR YELLOW (YELLW/STRAW); URINE LEUKOCYTE ESTERASE NEG (NEG)
[2018-02-24 11:40] LABS: BACTERIA, URINE RARE /hpf; HYALINE CAST, URINE 8 /lpf (RARE)
[2018-02-24] MEDS: PIPERACIL-TAZO 4.5 GM PREMIX 100 ML IV SCH ×2 (12:12→18:22)
[2018-02-24] MEDS: SODIUM CHLOR 0.9% 1000 ML INJ 1,000 ML IV SCH (12:28)
--- NOTE | 2018-02-24 13:49 | PD.CAR.PN ---
CVT Progress Note Subjective/Hospital Course: 72-year-old patient of Dr. Finesse Chatman and Dr. Man initally seen 02/15 with a history of nonischemic cardiomyopathy and history of mitral regurgitation, complaining of some shortness of breath with exertion for the past couple of weeks and some tightness in her chest when lying down, had a followup with Dr. Man, underwent echocardiogram 01/18/2018 which showed an ejection fraction of 55%, mild to moderate aortic stenosis, severe mitral regurgitation, 2 regurgitation jets with 1 hugging the lateral wall, aneurysmal atrial septum, moderate tricuspid regurgitation with moderate pulmonary hypertension. She underwent cardiac catheterization 02/15/18 for evaluation. Ejection fraction was 45%. The left main had an 80% stenosis, proximal LAD less than 15. We were consulted for mitral valve replacement and coronary artery bypass grafting x 2 to the LAD and the circumflex. PAST MEDICAL HISTORY: Includes nonischemic cardiomyopathy, carotid artery stenosis, coronary artery disease, mitral regurgitation, aortic stenosis, tricuspid regurgitation, hypertension, hyperlipidemia, scleroderma, significant rheumatoid arthritis, and osteoporosis,. She has been off chronic steroids for about 8 years. She does take chronic RA medication. PAST SURGICAL HISTORY: Include Bi-V ICD 5 years ago with a generator change out 3 years ago, [employer] device,;bilateral knee replacement, / pt admitted electively for MVR, CABG x 2 02/24 last evening pt had a sudden episode of loss of consciousness, generalized shaking activity. She then was nonresponsive following this. she slowly responded, per Neuro notes , starting following commands but appeared to be weak in the left side. A stroke alert was called. CT Brain, Head CTA, Neck CTA unremarkable , for EEG today, started on Keppra she know is able to state name place and weaker on left than right swallow eval pending leave chest tube in , on ASA keep in CVICU Objective: GENERAL: SKIN: Warm and dry. HEAD: Normocephalic. EYES: No scleral icterus. No injection or drainage. NECK: Supple, trachea midline. No JVD or lymphadenopathy. CARDIOVASCULAR: Regular rate and rhythm without murmurs, gallops, or rubs. RESPIRATORY: Breath sounds equal bilaterally. No accessory muscle use. GASTROINTESTINAL: Abdomen soft, non-tender, nondistended. MUSCULOSKELETAL: No cyanosis, or edema. BACK: Nontender without obvious deformity. No CVA tenderness. Neuro: Lethargic, but arousable. She does follow commands. Speech is mildly dysarthric. There is no facial droop. appears to be weak in the left arm and left leg compared with the right, rated at about 3/5. left arm , 4/5 left leg She does have some joint deformity, ( chronic swan neck deformity of hands ) Vital Signs Date Time Temp Pulse Resp B/P (MAP) Pulse Ox O2 Delivery O2 Flow Rate FiO2 02/24/18 11:03 93 02/24/18 11:03 98 Nasal Cannula 4.00 02/24/18 11:02 98.3 93 16 153/84 (107) 99 02/24/18 09:57 98 3.00 02/24/18 08:50 16 02/24/18 07:18 98.7 94 16 122/46 (71) 99 02/24/18 07:17 94 02/24/18 07:13 94 Nasal Cannula 4.00 02/24/18 04:48 86 134/53 02/24/18 03:00 84 02/24/18 03:00 98.0 83 16 139/55 (83) 99 02/24/18 03:00 95 Nasal Cannula 5.00 02/24/18 02:30 85 155/75 02/24/18 01:04 84 162/66 02/23/18 23:00 82 02/23/18 23:00 98 Nasal Cannula 5.00 02/23/18 23:00 97.7 83 12 157/73 (101) 99 02/23/18 22:00 82 160/80 02/23/18 19:52 96 15.00 100 02/23/18 19:15 97 Nasal Cannula 4.00 02/23/18 19:15 97.7 81 16 140/58 (85) 97 02/23/18 19:00 79 02/23/18 18:00 79 144/58 02/23/18 18:00 96 Nasal Cannula 4.00 02/23/18 17:47 96 Nasal Cannula 4 02/23/18 17:47 97 Nasal Cannula 4.00 02/23/18 17:45 97 40 02/23/18 17:40 96 40 02/23/18 17:00 73 130/58 02/23/18 15:25 98 40 02/23/18 15:10 69 149/69 02/23/18 15:00 99 Mechanical Ventilator 40 02/23/18 15:00 40 02/23/18 15:00 97.5 69 18 129/76 (93) 99 149/69 (95) 02/23/18 15:00 69 02/23/18 14:00 98.3 68 16 119/69 (86) 98 123/58 (79) 02/23/18 14:00 69 02/23/18 14:00 100 Mechanical Ventilator 40 02/23/18 14:00 40 02/23/18 13:45 98 50 Labs: Laboratory Tests Test 02/24/18 04:00 02/24/18 10:45 White Blood Count 30.2 TH/MM3 (4.0-11.0) Red Blood Count 4.00 MIL/MM3 (4.00-5.30) Hemoglobin 11.4 GM/DL (11.6-15.3) Hematocrit 33.8 % (35.0-46.0) Mean Corpuscular Volume 84.5 FL (80.0-100.0) Mean Corpuscular Hemoglobin 28.6 PG (27.0-34.0) Mean Corpuscular Hemoglobin Concent 33.8 % (32.0-36.0) Red Cell Distribution Width 17.7 % (11.6-17.2) Platelet Count 265 TH/MM3 (150-450) Mean Platelet Volume 7.9 FL (7.0-11.0) Blood Urea Nitrogen 20 MG/DL (7-18) Creatinine 0.53 MG/DL (0.50-1.00) Random Glucose 150 MG/DL (74-106) Calcium Level 8.2 MG/DL (8.5-10.1) Magnesium Level 1.5 MG/DL (1.5-2.5) Sodium Level 142 MEQ/L (136-145) Potassium Level 4.6 MEQ/L (3.5-5.1) Chloride Level 107 MEQ/L (98-107) Carbon Dioxide Level 22.7 MEQ/L (21.0-32.0) Anion Gap 12 MEQ/L (5-15) Estimat Glomerular Filtration Rate 113 ML/MIN (>89) Urine Color YELLOW (YELLW/STRAW) Urine Turbidity CLEAR (CLEAR) Urine pH 5.0 (5.0-8.5) Urine Specific [place] 1.032 (1.002-1.035) Urine Protein NEG mg/dL (NEG-TRACE) Urine Glucose (UA) NEG mg/dL (NEG) Urine Ketones TRACE mg/dL (NEG) Urine Occult Blood NEG (NEG) Urine Nitrite NEG (NEG) Urine Bilirubin NEG (NEG) Urine Urobilinogen 0.2 MG/DL (LESS THAN Urine Leukocyte Esterase NEG (NEG) Urine RBC 1 /hpf (0-3) Urine WBC 3 /hpf (0-5) Urine Bacteria RARE /hpf (NONE) Urine Hyaline Casts 8 /lpf (RARE) Microscopic Urinalysis Comment CATH-CULTURE IND Result Diagram: 02/24/1839902/24/18399 Telemetry: NSR (1) S/P MVR (mitral valve replacement) (2) S/P CABG x 1 Plan: on ASA, statin , no BB for now / keep SBP >140 OT/PT speech therapy OOB when cleared with Neuro (3) Hyperlipemia Plan: on statin (4) Hypertension Plan: Keep SBP 140-180 avoid hypotension (5) Scleroderma (6) Coronary artery disease (7) Mitral regurgitation (8) TIA/ CVA Plan: Neuro following will need acute rehab placement Cecelia Duke February 24, 2018 13:49
[2018-02-24] MEDS: RESP: ALBUTEROL 2.5 MG/IPRATROPIUM 0.5 MG NEB (SCH) NEB ×2 (14:29→20:13)
--- NOTE | 2018-02-24 15:41 | HHI.PR ---
Review/Management Diagnosis probable right hemisphere cva Plan continue aspirin maintain sbp 150-160 Diagnosis/Plan: Subjective Subjective Comments No acute events reported not moving left side Active Medications Current Medications Medications (Trade) Dose Ordered Sig/Tommie Route Start Time Stop Time Status Last Admin Sodium Chloride 500 ml @ 30 mls/hr [id number] PRN IV 02/23/18 05:45 02/26/18 05:44 (NS Flush) 2 ml BID IV FLUSH 02/23/18 21:00 02/24/18 09:13 (NS Flush) 2 ml UNSCH PRN IV FLUSH 02/23/18 13:30 Cefazolin Sodium 1000 mg/Sodium Chloride 100 ml @ 200 mls/hr Q8H IV 02/23/18 17:00 02/25/18 01:29 02/24/18 09:12 (Protonix) 40 mg DAILY@06 PO 02/24/18 06:00 Future Hold (Tylenol) 650 mg Q4H PRN PO 02/23/18 13:30 (Percocet 5-325 Mg) 1 tab Q3H PRN PO 02/23/18 13:30 (Zofran Inj) 4 mg Q6H PRN IV PUSH 02/23/18 13:30 02/24/18 04:48 (Lopressor Inj) 2.5 mg Q1H PRN IV PUSH 02/23/18 13:30 Potassium Chloride 100 ml @ 50 mls/hr UNSCH PRN IV 02/23/18 13:30 Potassium Chloride 100 ml @ 50 mls/hr UNSCH PRN IV 02/23/18 13:30 (KCl) 20 meq UNSCH PRN PO 02/23/18 13:30 (KCl) 40 meq UNSCH PRN PO 02/23/18 13:30 Magnesium Sulfate 2 gm/Sodium Chloride 104 ml @ 100 mls/hr UNSCH PRN IV 02/23/18 13:30 Magnesium Sulfate 2 gm/Sodium Chloride 104 ml @ 50 mls/hr UNSCH PRN IV 02/23/18 13:30 (Duoneb Neb) 1 ampule Q2HR NEB PRN NEB 02/23/18 13:30 (Pravachol) 20 mg DAILY PO 02/24/18 09:00 (Ultram) 50 mg Q6H PRN PO 02/23/18 13:30 Patient Own Medication PT OWN MED: (Leflunomide 20 ... DAILY PO 02/24/18 09:00 Future Hold Sodium Chloride 1,000 ml @ 35 mls/hr Q24H IV 02/23/18 20:30 02/24/18 12:28 (Aspirin Supp) 300 mg DAILY RECTAL 02/23/18 21:00 02/24/18 09:00 Levetriacetam 500 mg/Sodium Chloride 105 ml @ 420 mls/hr Q12HR IV 02/23/18 21:00 02/24/18 09:42 (Ativan Inj) 1 mg Q4H PRN IV PUSH 02/23/18 20:45 (Protonix Inj) 40 mg DAILY@0600 IV PUSH 02/24/18 06:00 02/24/18 06:00 Acetaminophen 100 ml @ 400 mls/hr Q6H PRN IV 02/24/18 09:15 02/26/18 09:14 (Duoneb Neb) 1 ampule Q6HR WHILE AWAKE NEB NEB 02/24/18 14:00 02/26/18 13:59 02/24/18 14:29 (Colace) 100 mg BID PO 02/24/18 21:00 (Theragran M Tab) 1 tab DAILY PO 02/25/18 09:00 (Milk Of Magnesia Liq) 30 ml DAILY PO 02/25/18 09:00 (Dulcolax Supp) 10 mg UNSCH PRN RECTAL 02/24/18 09:15 (Miralax) 17 gm DAILY PO 02/25/18 09:00 (Senokot) 8.6 mg HS PO 02/24/18 21:00 (Fleets Enema (Adult)) 118 ml UNSCH PRN RECTAL 02/24/18 09:15 (NovoLOG SUPPLEMENTAL SCALE) 1 02,06,10,14,18,22 SQ 02/24/18 10:00 (D50w (Vial) Inj) 50 ml UNSCH PRN IV PUSH 02/24/18 09:15 (Glucagon Inj) 1 mg UNSCH PRN OTHER 02/24/18 09:15 Piperacillin Sod/ Tazobactam Sod 100 ml @ 200 mls/hr Q6H IV 02/24/18 12:00 02/24/18 12:12 Allergies Allergies Coded Allergies Sulfa (Sulfonamide Antibiotics) (Verified Allergy, Severe, Rash, 02/23/18) Exam I&O / VS 02/24/18 02/24/18 02/25/18 15:00 23:00 07:00 Intake Total 750 ml Balance 750 ml Intake IV Total 750 ml Vital Signs Date Time Temp Pulse Resp B/P (MAP) Pulse Ox O2 Delivery O2 Flow Rate FiO2 02/24/18 15:04 94 Nasal Cannula 4.00 02/24/18 15:03 99 02/24/18 15:02 98.3 101 18 156/84 (108) 94 02/24/18 11:03 93 02/24/18 11:03 98 Nasal Cannula 4.00 02/24/18 11:02 98.3 93 16 153/84 (107) 99 02/24/18 09:57 98 3.00 02/24/18 08:50 16 02/24/18 07:18 98.7 94 16 122/46 (71) 99 02/24/18 07:17 94 02/24/18 07:13 94 Nasal Cannula 4.00 02/24/18 04:48 86 134/53 02/24/18 03:00 84 02/24/18 03:00 98.0 83 16 139/55 (83) 99 02/24/18 03:00 95 Nasal Cannula 5.00 02/24/18 02:30 85 155/75 02/24/18 01:04 84 162/66 02/23/18 23:00 82 02/23/18 23:00 98 Nasal Cannula 5.00 02/23/18 23:00 97.7 83 12 157/73 (101) 99 02/23/18 22:00 82 160/80 02/23/18 19:52 96 15.00 100 02/23/18 19:15 97 Nasal Cannula 4.00 02/23/18 19:15 97.7 81 16 140/58 (85) 97 02/23/18 19:00 79 02/23/18 18:00 79 144/58 02/23/18 18:00 96 Nasal Cannula 4.00 02/23/18 17:47 96 Nasal Cannula 4 02/23/18 17:47 97 Nasal Cannula 4.00 02/23/18 17:45 97 40 02/23/18 17:40 96 40 02/23/18 17:00 73 130/58 Exam Comments lethargic, arousable and follow commands speech dysarthric CN--pupils 2 mm symmetric and reactive. right gaze preference MOTOR--no spontaneous movement left side arm and minimal leg Objective Micro and Labs Laboratory Tests Test 02/23/18 19:35 02/24/18 04:00 02/24/18 10:45 White Blood Count 31.2 30.2 Red Blood Count 4.15 4.00 Hemoglobin 11.6 11.4 Bedside Hemoglobin 9.9 Hematocrit 35.0 33.8 Bedside Hematocrit 29.0 Mean Corpuscular Volume 84.4 84.5 Mean Corpuscular Hemoglobin 28.0 28.6 Mean Corpuscular Hemoglobin Concent 33.2 33.8 Red Cell Distribution Width 17.0 17.7 Platelet Count 257 265 Mean Platelet Volume 7.2 7.9 Neutrophils (%) (Auto) 91.8 Lymphocytes (%) (Auto) 4.7 Monocytes (%) (Auto) 3.2 Eosinophils (%) (Auto) 0.0 Basophils (%) (Auto) 0.3 Neutrophils # (Auto) 28.6 Lymphocytes # (Auto) 1.5 Monocytes # (Auto) 1.0 Eosinophils # (Auto) 0.0 Basophils # (Auto) 0.1 CBC Comment AUTO DIFF Differential Total Cells Counted 100 Neutrophils % (Manual) 86 Band Neutrophils % 10 Lymphocytes % 2 Monocytes % 2 Neutrophils # (Manual) 30.0 Differential Comment FINAL DIFF MANUAL Platelet Estimate NORMAL Platelet Morphology Comment NORMAL Prothrombin Time 11.4 Prothromb Time International Ratio 1.1 Activated Partial Thromboplast Time 39.8 Fibrinogen 220 Bedside Sodium 160 Bedside Potassium 3.8 Bedside Chloride 95 Bedside Blood Urea Nitrogen 16 Bedside Creatinine 0.6 Bedside Glucose 135 Lactic Acid Level 2.2 Total Creatine Kinase 421 Creatine Kinase MB 36.4 Creatine Kinase MB % 8.6 Troponin I 8.41 Blood Urea Nitrogen 20 Creatinine 0.53 Random Glucose 150 Calcium Level 8.2 Magnesium Level 1.5 Sodium Level 142 Potassium Level 4.6 Chloride Level 107 Carbon Dioxide Level 22.7 Anion Gap 12 Estimat Glomerular Filtration Rate 113 Urine Color YELLOW Urine Turbidity CLEAR Urine pH 5.0 Urine Specific [place] 1.032 Urine Protein NEG Urine Glucose (UA) NEG Urine Ketones TRACE Urine Occult Blood NEG Urine Nitrite NEG Urine Bilirubin NEG Urine Urobilinogen 0.2 Urine Leukocyte Esterase NEG Urine RBC 1 Urine WBC 3 Urine Bacteria RARE Urine Hyaline Casts 8 Microscopic Urinalysis Comment CATH-CULTURE IND Date/Time Source Procedure Growth Status 02/24/18 10:55 Blood Peripheral Aerobic Blood Culture Pending Received 02/24/18 10:55 Blood Peripheral Anaerobic Blood Culture Pending Received 02/24/18 10:45 Urine Catheterized Urine Urine Culture Pending Received Len St MD PhD February 24, 2018 15:41
--- NOTE | 2018-02-24 16:35 | MG ---
cc: Brandt Hardwick MD EEG NUMBER: [id number] INDICATION: AICD, leaky valve, Keppra, Zofran. DESCRIPTION: Some asymmetry of the background with diffuse 5 Hz slowing seems to be more prominent over the left hemisphere than the right, with some sharply contoured waves over the left hemisphere compared to the right. This is seen on the transverse and bipolar montage. Hyperventilation is not performed. No prolonged seizure activity is seen. The patient appears to have some stage II sleep activity. Photic stimulation is performed without significant posterior driving. IMPRESSION: There is some asymmetry with some sharpness over to the left hemisphere compared to the right and what appears to be some focal slowing there on a background of diffuse slowing. Left hemisphere lesion should be ruled out. Brandt Hardwick MD DJM/KD , 04:12 PM , 04:34 PM
[2018-02-24] MEDS: INSULIN NovoLIN REGULAR SUPPLEMENTAL SCALE SQ SCH ×2 (18:00→22:00)
--- NOTE | 2018-02-24 18:11 | EKG ---
Date Performed: 02/23/2018 Time Performed: 19:43:12 PTAGE: 72 years EKG: Ventricular pacing Pacemaker rhythm - no further analysis Abnormal ECG Since the PREVIOUS TRACING , no significant change noted PREVIOUS TRACIN01/02/2013 07.08 DOCTOR: Samuel Quintanilla Interpretating Date/Time 02/24/2018 16:34:49
--- NOTE | 2018-02-24 18:14 | EKG ---
Date Performed: 02/24/2018 Time Performed: 03:08:14 PTAGE: 72 years EKG: Ventricular pacing. Pacemaker rhythm - no further analysis Since the previous tracing, no s ignificant change noted Abnormal ECG PREVIOUS TRACING : 02/23/2018 19.43 DOCTOR: Samuel Quintanilla Interpretating Date/Time 02/24/2018 16:34:57
[2018-02-24] MEDS: DEXT 5%-NACL 0.9% 1000 ML INJ 1,000 ML IV SCH (18:20)
[2018-02-24] MEDS: SENNOSIDES 8.6 MG TAB PO SCH (22:01)
[2018-02-24] MEDS: DOCUSATE SODIUM 100 MG CAP PO SCH (22:01)
[2018-02-25] VITALS (10 sets, daily range): BP systolic 150–159; BP diastolic 73–87; PULSE 84–108; RESP 20; TEMP 98.1–99.3; O2SAT 94–99
[2018-02-25] MEDS: PIPERACIL-TAZO 4.5 GM PREMIX 100 ML IV SCH ×4 (00:18→18:19)
[2018-02-25] MEDS: INSULIN NovoLIN REGULAR SUPPLEMENTAL SCALE SQ SCH ×6 (02:26→22:00)
[2018-02-25] MEDS: PANTOPRAZOLE SODIUM 40 MG VIAL IV PUSH SCH (05:50)
[2018-02-25 05:55] LABS: INTERNATIONAL NORMALIZED RATIO 1.1 RATIO; PROTHROMBIN TIME - PATIENT 10.7 SEC (9.8-11.6)
[2018-02-25 05:58] LABS: AUTOMATED NEUTROPHIL # 18.3 TH/MM3 (1.8-7.7); BASOPHIL % 0.1 % (0.0-2.0); HEMATOCRIT 27.6 % (35.0-46.0); HEMOGLOBIN 8.9 GM/DL (11.6-15.3); LYMPH % 8.5 % (9.0-44.0); LYMPHOCYTE # 1.9 TH/MM3 (1.0-4.8); MEAN CELL VOLUME 85.2 FL (80.0-100.0); MEAN CORPUSCULAR HEMOGLOBIN 27.6 PG (27.0-34.0); MEAN CORPUSCULAR HGB CONC 32.3 % (32.0-36.0); MEAN PLATELET VOLUME 7.8 FL (7.0-11.0); MONO % 10.8 % (0.0-8.0); MONOCYTE # 2.5 TH/MM3 (0-0.9); NEUT % 80.6 % (16.0-70.0); PLATELET COUNT 248 TH/MM3 (150-450); RED BLOOD COUNT 3.24 MIL/MM3 (4.00-5.30); RED CELL DISTRIBUTION WIDTH 17.8 % (11.6-17.2); WHITE BLOOD COUNT 22.8 TH/MM3 (4.0-11.0)
[2018-02-25 06:15] LABS: BICARBONATE 26.1 MEQ/L (21.0-32.0); CALCIUM 7.9 MG/DL (8.5-10.1); CREATININE 0.58 MG/DL (0.50-1.00); MAGNESIUM 1.8 MG/DL (1.5-2.5)
[2018-02-25] MEDS: DEXT 5%-NACL 0.9% 1000 ML INJ 1,000 ML IV SCH (07:26)
[2018-02-25 07:46] LABS: LYMPHOCYTES 8 % (9-44); MONOCYTES 12 % (0-8); NEUTROPHIL # MANUAL DIFF 18.2 TH/MM3 (1.8-7.7); POLYS (SEG NEUTROPHILS) 80 % (16-70)
[2018-02-25] MEDS: RESP: ALBUTEROL 2.5 MG/IPRATROPIUM 0.5 MG NEB (SCH) NEB ×3 (08:22→21:41)
--- NOTE | 2018-02-25 10:05 | PD.CAR.PN ---
CVT Progress Note Subjective/Hospital Course: 72-year-old patient of Dr. Finesse Chatman and Dr. Man initally seen 02/15 with a history of nonischemic cardiomyopathy and history of mitral regurgitation, complaining of some shortness of breath with exertion for the past couple of weeks and some tightness in her chest when lying down, had a followup with Dr. Man, underwent echocardiogram 01/18/2018 which showed an ejection fraction of 55%, mild to moderate aortic stenosis, severe mitral regurgitation, 2 regurgitation jets with 1 hugging the lateral wall, aneurysmal atrial septum, moderate tricuspid regurgitation with moderate pulmonary hypertension. She underwent cardiac catheterization 02/15/18 for evaluation. Ejection fraction was 45%. The left main had an 80% stenosis, proximal LAD less than 15. We were consulted for mitral valve replacement and coronary artery bypass grafting x 2 to the LAD and the circumflex. PAST MEDICAL HISTORY: Includes nonischemic cardiomyopathy, carotid artery stenosis, coronary artery disease, mitral regurgitation, aortic stenosis, tricuspid regurgitation, hypertension, hyperlipidemia, scleroderma, significant rheumatoid arthritis, and osteoporosis,. She has been off chronic steroids for about 8 years. She does take chronic RA medication. PAST SURGICAL HISTORY: Include Bi-V ICD 5 years ago with a generator change out 3 years ago, Medtronic device,;bilateral knee replacement, 02/23 pt admitted electively for MVR, CABG x 2 02/24 last evening pt had a sudden episode of loss of consciousness, generalized shaking activity. She then was nonresponsive following this. she slowly responded, per Neuro notes , starting following commands but appeared to be weak in the left side. A stroke alert was called. CT Brain, Head CTA, Neck CTA unremarkable , for EEG today, started on Keppra she know is able to state name place and weaker on left than right swallow eval pending leave chest tube in , on ASA keep in CVICU 02/25 Doing better this am Following commands Moving L sided much better. Still a little weak compared to the right Maintain in ICU Appreciate Neurology input Objective: Vital Signs Date Time Temp Pulse Resp B/P (MAP) Pulse Ox O2 Delivery O2 Flow Rate FiO2 02/25/18 08:24 98 Nasal Cannula 2.00 02/25/18 07:00 98.2 94 20 153/84 (107) 97 02/25/18 07:00 94 02/25/18 07:00 97 Nasal Cannula 2.00 02/25/18 04:00 99.3 107 20 156/87 (110) 97 02/25/18 03:00 108 02/25/18 03:00 99 Nasal Cannula 2.00 02/25/18 00:30 107 02/25/18 00:00 99.0 105 20 150/83 (105) 94 Arterial Line 02/25/18 00:00 99 Nasal Cannula 2.00 02/24/18 20:15 95 Nasal Cannula 2.00 02/24/18 20:00 99.8 105 20 164/92 (116) 94 Arterial Line 02/24/18 20:00 97 Nasal Cannula 2.00 02/24/18 19:00 99 02/24/18 18:22 15 02/24/18 15:04 94 Nasal Cannula 4.00 02/24/18 15:03 99 02/24/18 15:02 98.3 101 18 156/84 (108) 94 02/24/18 11:03 93 02/24/18 11:03 98 Nasal Cannula 4.00 02/24/18 11:02 98.3 93 16 153/84 (107) 99 Labs: Laboratory Tests Test 02/25/18 05:30 White Blood Count 22.8 TH/MM3 (4.0-11.0) Red Blood Count 3.24 MIL/MM3 (4.00-5.30) Hemoglobin 8.9 GM/DL (11.6-15.3) Hematocrit 27.6 % (35.0-46.0) Mean Corpuscular Volume 85.2 FL (80.0-100.0) Mean Corpuscular Hemoglobin 27.6 PG (27.0-34.0) Mean Corpuscular Hemoglobin Concent 32.3 % (32.0-36.0) Red Cell Distribution Width 17.8 % (11.6-17.2) Platelet Count 248 TH/MM3 (150-450) Mean Platelet Volume 7.8 FL (7.0-11.0) Neutrophils (%) (Auto) 80.6 % (16.0-70.0) Lymphocytes (%) (Auto) 8.5 % (9.0-44.0) Monocytes (%) (Auto) 10.8 % (0.0-8.0) Eosinophils (%) (Auto) 0.0 % (0.0-4.0) Basophils (%) (Auto) 0.1 % (0.0-2.0) Neutrophils # (Auto) 18.3 TH/MM3 (1.8-7.7) Lymphocytes # (Auto) 1.9 TH/MM3 (1.0-4.8) Monocytes # (Auto) 2.5 TH/MM3 (0-0.9) Eosinophils # (Auto) 0.0 TH/MM3 (0-0.4) Basophils # (Auto) 0.0 TH/MM3 (0-0.2) CBC Comment AUTO DIFF Differential Total Cells Counted 100 Neutrophils % (Manual) 80 % (16-70) Lymphocytes % 8 % (9-44) Monocytes % 12 % (0-8) Neutrophils # (Manual) 18.2 TH/MM3 (1.8-7.7) Differential Comment FINAL DIFF MANUAL Platelet Estimate NORMAL (NORMAL) Platelet Morphology Comment NORMAL (NORMAL) Basophilic Stippling MOD (NORMAL) Prothrombin Time 10.7 SEC (9.8-11.6) Prothromb Time International Ratio 1.1 RATIO Blood Urea Nitrogen 16 MG/DL (7-18) Creatinine 0.58 MG/DL (0.50-1.00) Random Glucose 143 MG/DL (74-106) Calcium Level 7.9 MG/DL (8.5-10.1) Magnesium Level 1.8 MG/DL (1.5-2.5) Sodium Level 142 MEQ/L (136-145) Potassium Level 4.1 MEQ/L (3.5-5.1) Chloride Level 108 MEQ/L (98-107) Carbon Dioxide Level 26.1 MEQ/L (21.0-32.0) Anion Gap 8 MEQ/L (5-15) Estimat Glomerular Filtration Rate 102 ML/MIN (>89) Result Diagram: 02/25/18 0530 02/25/18 0530 (1) S/P MVR (mitral valve replacement) (2) S/P CABG x 1 Plan: on ASA, statin , no BB for now / keep SBP >140 OT/PT speech therapy OOB when cleared with Neuro (3) Hyperlipemia Plan: on statin (4) Hypertension Plan: Keep SBP 140-180 avoid hypotension (5) Scleroderma (6) Coronary artery disease (7) Mitral regurgitation (8) TIA/ CVA Plan: Neuro following will need acute rehab placement Isacc Link MD February 25, 2018 10:05
[2018-02-25] MEDS: MAGNESIUM HYDROXIDE SUSP 30 ML CUP PO SCH (10:28)
[2018-02-25] MEDS: MULTIVITAMINS/MINERALS THERAPEUTIC TAB PO SCH (10:29)
[2018-02-25] MEDS: DOCUSATE SODIUM 100 MG CAP PO SCH ×2 (10:29→21:46)
[2018-02-25] MEDS: levETIRAcetam INJ 500 MG in SODIUM CHLORIDE 0.9% INJ 100 ML IV SCH ×2 (10:29→21:46)
[2018-02-25] MEDS: SODIUM CHLORIDE 0.9% FLUSH 10 ML FLUSH IV FLUSH SCH ×2 (10:29→21:46)
[2018-02-25] MEDS: PRAVASTATIN SOD 20 MG TAB PO SCH (10:29)
[2018-02-25] MEDS: POLYETHYLENE GLYCOL 17 GM PKG PO SCH (10:30)
[2018-02-25] MEDS: ASPIRIN 300 MG SUPP RECTAL SCH (10:42)
--- NOTE | 2018-02-25 10:45 | HHI.PR ---
Subjective Remarks sr Objective Vital Signs Date Time Temp Pulse Resp B/P (MAP) Pulse Ox O2 Delivery O2 Flow Rate FiO2 02/25/18 08:24 98 Nasal Cannula 2.00 02/25/18 07:00 98.2 94 20 153/84 (107) 97 02/25/18 07:00 94 02/25/18 07:00 97 Nasal Cannula 2.00 02/25/18 04:00 99.3 107 20 156/87 (110) 97 02/25/18 03:00 108 02/25/18 03:00 99 Nasal Cannula 2.00 02/25/18 00:30 107 02/25/18 00:00 99.0 105 20 150/83 (105) 94 Arterial Line 02/25/18 00:00 99 Nasal Cannula 2.00 02/24/18 20:15 95 Nasal Cannula 2.00 02/24/18 20:00 99.8 105 20 164/92 (116) 94 Arterial Line 02/24/18 20:00 97 Nasal Cannula 2.00 02/24/18 19:00 99 02/24/18 18:22 15 02/24/18 15:04 94 Nasal Cannula 4.00 02/24/18 15:03 99 02/24/18 15:02 98.3 101 18 156/84 (108) 94 02/24/18 11:03 93 02/24/18 11:03 98 Nasal Cannula 4.00 02/24/18 11:02 98.3 93 16 153/84 (107) 99 I/O 02/24/18 02/24/18 02/24/18 02/25/18 02/25/18 02/25/18 07:00 15:00 23:00 07:00 15:00 23:00 Intake Total 350 ml 750 ml 310 ml 1247 ml 100 ml Output Total 1460 ml 730 ml 1160 ml Balance -1110 ml 750 ml -420 ml 87 ml 100 ml Intake Oral 100 ml 60 ml IV Total 350 ml 750 ml 210 ml 1187 ml 100 ml Output Urine Total 1030 ml 490 ml 610 ml Chest Tube Drainage Total 430 ml 240 ml 550 ml # Bowel Movements 0 0 0 Result Diagram: 02/25/18 0530 02/25/18 0530 Objective Remarks keeps eyes closed vff moves all 4 ext well now check ct oob am if stable Brandt Hardwick MD February 25, 2018 10:45
[2018-02-25] MEDS: ONDANSETRON HCL 4 MG/2 ML VIAL IV PUSH PRN (13:46)
[2018-02-25] MEDS: SODIUM CHLOR 0.9% 1000 ML INJ 1,000 ML IV SCH (17:35)
[2018-02-25] MEDS ORDERED: ATROPINE SULFATE 1 MG/10 ML SYRINGE ONE (20:49)
[2018-02-25] MEDS ORDERED: EPINEPHrine HCL (1:10,000) 1 MG/10 ML SYRINGE ONE (20:49)
[2018-02-25] MEDS: SENNOSIDES 8.6 MG TAB PO SCH (21:00)
--- NOTE | 2018-02-25 21:15 | RADRPT ---
EXAM DATE/TIME: 02/25/2018 20:56 [facility] COMPARISON: CT BRAIN W/O CONTRAST, February 23, 2018, 19:54. INDICATIONS : Weakness; rule out CVA. RADIATION DOSE: 56.35 CTDIvol (mGy) MEDICAL HISTORY : Cardiovascular disease. Congestive heart failure. Hypertension. SURGICAL HISTORY : Pacemaker. CABGHysterectomy. ENCOUNTER: Initial ACUITY: 1 day PAIN SCALE: 0/10 LOCATION: cranial TECHNIQUE: Multiple contiguous axial images were obtained of the head. Using automated exposure control and adj ustment of the mA and/or kV according to patient size, radiation dose was kept as low as reasonably a chievable to obtain optimal diagnostic quality images. DICOM format image data is available electro nically for review and comparison. FINDINGS: CEREBRUM: The ventricles are normal for age. No evidence of midline shift, mass lesion, hemorrhage or acute in farction. No extra-axial fluid collections are seen. Mild periventricular and subcortical white gale er small vessel ischemic changes are noted. POSTERIOR FOSSA: The cerebellum and brainstem are intact. The 4th ventricle is midline. The cerebellopontine angle i s unremarkable. EXTRACRANIAL: The visualized portion of the orbits is intact. SKULL: The calvaria is intact. No evidence of skull fracture. CONCLUSION: 1. Stable mild periventricular and subcortical white matter small vessel ischemic changes. 2. No acute infarct, acute hemorrhage, mass effect or extra-axial fluid collections. Chacho Bass MD on February 25, 2018 at 21:11 Board Certified Radiologist. This report was verified electronically.
[2018-02-26] VITALS (9 sets, daily range): BP systolic 138–158; BP diastolic 52–90; PULSE 79–98; RESP 16–22; TEMP 97.5–98.9; O2SAT 90–100
[2018-02-26] MEDS: PIPERACIL-TAZO 4.5 GM PREMIX 100 ML IV SCH ×4 (00:40→17:31)
[2018-02-26] MEDS: INSULIN NovoLIN REGULAR SUPPLEMENTAL SCALE SQ SCH ×6 (02:00→20:46)
[2018-02-26 05:30] LABS: AUTOMATED NEUTROPHIL # 15.9 TH/MM3 (1.8-7.7); BASOPHIL % 0.2 % (0.0-2.0); EOSINOPHIL # 0.3 TH/MM3 (0-0.4); EOSINOPHIL % 1.3 % (0.0-4.0); HEMATOCRIT 26.1 % (35.0-46.0); HEMOGLOBIN 8.5 GM/DL (11.6-15.3); LYMPH % 8.5 % (9.0-44.0); LYMPHOCYTE # 1.7 TH/MM3 (1.0-4.8); MEAN CELL VOLUME 85.6 FL (80.0-100.0); MEAN CORPUSCULAR HEMOGLOBIN 27.8 PG (27.0-34.0); MEAN CORPUSCULAR HGB CONC 32.5 % (32.0-36.0); MEAN PLATELET VOLUME 7.9 FL (7.0-11.0); MONOCYTE # 1.8 TH/MM3 (0-0.9); PLATELET COUNT 215 TH/MM3 (150-450); RED BLOOD COUNT 3.05 MIL/MM3 (4.00-5.30); WHITE BLOOD COUNT 19.6 TH/MM3 (4.0-11.0)
[2018-02-26] MEDS: SODIUM CHLOR 0.9% 1000 ML INJ 1,000 ML IV SCH (05:35)
[2018-02-26] MEDS: PANTOPRAZOLE SODIUM 40 MG VIAL IV PUSH SCH (05:51)
[2018-02-26 05:56] LABS: BICARBONATE 29.9 MEQ/L (21.0-32.0); CALCIUM 7.5 MG/DL (8.5-10.1); CREATININE 0.41 MG/DL (0.50-1.00)
[2018-02-26] MEDS: MAGNESIUM SULFATE 1 GM PREMIX 100 ML IV SCH ×2 (06:45→07:45)
[2018-02-26] MEDS: MAGNESIUM SULFATE INJ 2 GM in SODIUM CHLORIDE 0.9% INJ 100 ML IV PRN (07:36)
[2018-02-26] MEDS: RESP: ALBUTEROL 2.5 MG/IPRATROPIUM 0.5 MG NEB (SCH) NEB (07:36)
[2018-02-26] MEDS: levETIRAcetam INJ 500 MG in SODIUM CHLORIDE 0.9% INJ 100 ML IV SCH ×2 (08:38→20:36)
[2018-02-26] MEDS: ASPIRIN 300 MG SUPP RECTAL SCH (08:38)
[2018-02-26] MEDS: MAGNESIUM HYDROXIDE SUSP 30 ML CUP PO SCH (08:38)
[2018-02-26] MEDS: PRAVASTATIN SOD 20 MG TAB PO SCH (08:38)
[2018-02-26] MEDS: MULTIVITAMINS/MINERALS THERAPEUTIC TAB PO SCH (08:38)
[2018-02-26] MEDS: DOCUSATE SODIUM 100 MG CAP PO SCH ×2 (08:38→20:36)
[2018-02-26] MEDS: POLYETHYLENE GLYCOL 17 GM PKG PO SCH (08:39)
[2018-02-26] MEDS: SODIUM CHLORIDE 0.9% FLUSH 10 ML FLUSH IV FLUSH SCH ×2 (08:40→20:35)
--- NOTE | 2018-02-26 09:36 | PD.CAR.PN ---
CVT Progress Note Subjective/Hospital Course: 72-year-old patient of Dr. Finesse Chatman and Dr. Man initally seen 02/15 with a history of nonischemic cardiomyopathy and history of mitral regurgitation, complaining of some shortness of breath with exertion for the past couple of weeks and some tightness in her chest when lying down, had a followup with Dr. Man, underwent echocardiogram 01/18/2018 which showed an ejection fraction of 55%, mild to moderate aortic stenosis, severe mitral regurgitation, 2 regurgitation jets with 1 hugging the lateral wall, aneurysmal atrial septum, moderate tricuspid regurgitation with moderate pulmonary hypertension. She underwent cardiac catheterization 02/15/18 for evaluation. Ejection fraction was 45%. The left main had an 80% stenosis, proximal LAD less than 15. We were consulted for mitral valve replacement and coronary artery bypass grafting x 2 to the LAD and the circumflex. PAST MEDICAL HISTORY: Includes nonischemic cardiomyopathy, carotid artery stenosis, coronary artery disease, mitral regurgitation, aortic stenosis, tricuspid regurgitation, hypertension, hyperlipidemia, scleroderma, significant rheumatoid arthritis, and osteoporosis,. She has been off chronic steroids for about 8 years. She does take chronic RA medication. PAST SURGICAL HISTORY: Include Bi-V ICD 5 years ago with a generator change out 3 years ago, Medtronic device,;bilateral knee replacement, / pt admitted electively for MVR, CABG x 2 02/24 last evening pt had a sudden episode of loss of consciousness, generalized shaking activity. She then was nonresponsive following this. she slowly responded, per Neuro notes , starting following commands but appeared to be weak in the left side. A stroke alert was called. CT Brain, Head CTA, Neck CTA unremarkable , for EEG today, started on Keppra she know is able to state name place and weaker on left than right swallow eval pending leave chest tube in , on ASA keep in CVICU 02/25 Doing better this am Following commands Moving L sided much better. Still a little weak compared to the right Maintain in ICU Appreciate Neurology input 02/26 Much better this am. More awake and responsive Activity per neurology D/C IVF Objective: Vital Signs Date Time Temp Pulse Resp B/P (MAP) Pulse Ox O2 Delivery O2 Flow Rate FiO2 02/26/18 07:36 97 Nasal Cannula 2.00 02/26/18 07:15 98.1 86 20 158/90 (112) 100 02/26/18 07:00 86 02/26/18 07:00 100 Nasal Cannula 2.00 02/26/18 04:00 98.1 90 16 157/89 (111) 98 02/26/18 04:00 98 Nasal Cannula 2.00 02/26/18 04:00 86 02/26/18 00:00 99 Nasal Cannula 2.00 02/26/18 00:00 98.9 79 22 142/52 (82) 90 02/26/18 00:00 86 02/25/18 21:41 97 Nasal Cannula 2.00 02/25/18 20:00 99 Nasal Cannula 2.00 02/25/18 20:00 84 02/25/18 20:00 98.7 96 20 159/73 (101) 96 02/25/18 15:00 98.1 85 20 153/81 (105) 99 02/25/18 15:00 99 Nasal Cannula 2.00 02/25/18 15:00 85 02/25/18 11:00 99.2 98 20 155/85 (108) 98 02/25/18 11:00 94 02/25/18 11:00 97 Nasal Cannula 2.00 Labs: Laboratory Tests Test 02/26/18 04:45 White Blood Count 19.6 TH/MM3 (4.0-11.0) Red Blood Count 3.05 MIL/MM3 (4.00-5.30) Hemoglobin 8.5 GM/DL (11.6-15.3) Hematocrit 26.1 % (35.0-46.0) Mean Corpuscular Volume 85.6 FL (80.0-100.0) Mean Corpuscular Hemoglobin 27.8 PG (27.0-34.0) Mean Corpuscular Hemoglobin Concent 32.5 % (32.0-36.0) Red Cell Distribution Width 18.0 % (11.6-17.2) Platelet Count 215 TH/MM3 (150-450) Mean Platelet Volume 7.9 FL (7.0-11.0) Neutrophils (%) (Auto) 81.0 % (16.0-70.0) Lymphocytes (%) (Auto) 8.5 % (9.0-44.0) Monocytes (%) (Auto) 9.0 % (0.0-8.0) Eosinophils (%) (Auto) 1.3 % (0.0-4.0) Basophils (%) (Auto) 0.2 % (0.0-2.0) Neutrophils # (Auto) 15.9 TH/MM3 (1.8-7.7) Lymphocytes # (Auto) 1.7 TH/MM3 (1.0-4.8) Monocytes # (Auto) 1.8 TH/MM3 (0-0.9) Eosinophils # (Auto) 0.3 TH/MM3 (0-0.4) Basophils # (Auto) 0.0 TH/MM3 (0-0.2) CBC Comment DIFF FINAL Differential Comment Blood Urea Nitrogen 12 MG/DL (7-18) Creatinine 0.41 MG/DL (0.50-1.00) Random Glucose 107 MG/DL (74-106) Calcium Level 7.5 MG/DL (8.5-10.1) Magnesium Level 2.0 MG/DL (1.5-2.5) Sodium Level 147 MEQ/L (136-145) Potassium Level 4.2 MEQ/L (3.5-5.1) Chloride Level 112 MEQ/L (98-107) Carbon Dioxide Level 29.9 MEQ/L (21.0-32.0) Anion Gap 5 MEQ/L (5-15) Estimat Glomerular Filtration Rate 152 ML/MIN (>89) Result Diagram: 02/26/1844402/26/18444 (1) S/P MVR (mitral valve replacement) (2) S/P CABG x 1 Plan: on ASA, statin , no BB for now / keep SBP >140 OT/PT speech therapy OOB when cleared with Neuro (3) Hyperlipemia Plan: on statin (4) Hypertension Plan: Keep SBP 140-180 avoid hypotension (5) Scleroderma (6) Coronary artery disease (7) Mitral regurgitation (8) TIA/ CVA Plan: Neuro following will need acute rehab placement Isacc Link MD February 26, 2018 09:36
--- NOTE | 2018-02-26 12:52 | HHI.PR ---
Subjective Remarks sr Objective Vital Signs Date Time Temp Pulse Resp B/P (MAP) Pulse Ox O2 Delivery O2 Flow Rate FiO2 02/26/18 11:00 97.5 96 20 141/75 (97) 97 02/26/18 11:00 96 02/26/18 11:00 97 Nasal Cannula 2.00 02/26/18 07:36 97 Nasal Cannula 2.00 02/26/18 07:15 98.1 86 20 158/90 (112) 100 02/26/18 07:00 86 02/26/18 07:00 100 Nasal Cannula 2.00 02/26/18 04:00 98.1 90 16 157/89 (111) 98 02/26/18 04:00 98 Nasal Cannula 2.00 02/26/18 04:00 86 02/26/18 00:00 99 Nasal Cannula 2.00 02/26/18 00:00 98.9 79 22 142/52 (82) 90 02/26/18 00:00 86 02/25/18 21:41 97 Nasal Cannula 2.00 02/25/18 20:00 99 Nasal Cannula 2.00 02/25/18 20:00 84 02/25/18 20:00 98.7 96 20 159/73 (101) 96 02/25/18 15:00 98.1 85 20 153/81 (105) 99 02/25/18 15:00 99 Nasal Cannula 2.00 02/25/18 15:00 85 I/O 02/25/18 02/25/18 02/25/18 02/26/18 02/26/18 02/26/18 07:00 15:00 23:00 07:00 15:00 23:00 Intake Total 1247 ml 625 ml 670 ml 1225 ml Output Total 1160 ml 1180 ml 1050 ml Balance 87 ml 625 ml -510 ml 175 ml Intake Oral 60 ml 240 ml 200 ml IV Total 1187 ml 625 ml 430 ml 1025 ml Output Urine Total 610 ml 740 ml 580 ml Chest Tube Drainage Total 550 ml 440 ml 470 ml # Bowel Movements 0 0 0 Result Diagram: 02/26/18 0445 02/26/18 0445 Objective Remarks vff moves all 4 ext well now oriented Assessment and Plan Assessment and Plan imp ct neg cva looks fine neurowise oob ok by ri Brandt Hardwick MD February 26, 2018 12:52
[2018-02-26] MEDS: RESP: ALBUTEROL 2.5 MG/IPRATROPIUM 0.5 MG NEB (PRN) NEB ×2 (14:02→20:58)
--- NOTE | 2018-02-26 14:38 | ECHRPT ---
Indication: TIA CONCLUSIONS The left ventricular systolic function is moderately reduced with an estimated ejection fraction in the range of 40-45%. Wall thickness is measured at the upper limits of normal. Normal left ventricular size. The left atrial size is mildly dilated. There is mild prosthetic valve regurgitation. Diffuse calcification of the aortic valve. Mild aortic valve stenosis. Aortic valve area is 1.1 cm. Aortic valve mean gradient is 8 mmHg. Pacemaker wire is present within the right ventricular cavity. There is moderate tricuspid regurgitation. The estimated pulmonary arterial pressure is 49.4 mmHg. Mild pulmonary valve regurgitation. A left sided pleural effusion is present. Mobile density seen on the ventricular aspect of the anterior mitral valve apparatus, likely residua l tissue from [place] MV apparatus (does not appear to be a vegetation); consider BREN if clinically indicated. BP: 122 / 46 HR: 94 Rhythm: MEASUREMENTS (Male / Female) Normal Values Technical Quality:Fair 2D ECHO LV Diastolic Diameter PLAX 5.1 cm 4.2 - 5.9 / 3.9 - 5.3 cm LV Systolic Diameter PLAX 4.1 cm IVS Diastolic Thickness 0.9 cm 0.6 - 1.0 / 0.6 - 0.9 cm LVPW Diastolic Thickness 1.0 cm 0.6 - 1.0 / 0.6 - 0.9 cm LV Relative Wall Thickness 0.4 RV Internal Dim ED PLAX 2.7 cm LVOT Diameter 2.0 cm LA Systolic Diameter LX 4.0 cm 3.0 - 4.0 / 2.7 - 3.8 cm M-MODE Aortic Root Diameter MM 2.7 cm LA Systolic Diameter MM 3.8 cm LA Ao Ratio MM 1.4 AV Cusp Separation MM 1.2 cm DOPPLER AV Peak Velocity 214.0 cm/s AV Peak Gradient 18.3 mmHg AV Mean Gradient 8.0 mmHg AV Velocity Time Integral 34.3 cm LVOT Peak Velocity 69.9 cm/s LVOT Peak Gradient 2.0 mmHg LVOT Velocity Time Integral 11.6 cm LVOT Cardiac Index 2259.2 cm/minm AV Area Cont Eq vti 1.1 cm AV Area Cont Eq pk 1.0 cm MV Peak Velocity 160.7 cm/s MV Peak Gradient 10.3 mmHg MV Mean Velocity 132.0 cm/s MV Mean Gradient 7.0 mmHg MV Area PHT 4.0 cm Mitral E Point Velocity 146.0 cm/s Mitral A Point Velocity 126.0 cm/s Mitral E to A Ratio 1.2 LV E' Lateral Velocity 6.2 cm/s Mitral E to LV E' Lateral Ratio 23.4 LV E' Septal Velocity 6.0 cm/s Mitral E to LV E' Septal Ratio 24.2 TR Peak Velocity 314.0 cm/s TR Peak Gradient 39.4 mmHg Right Atrial Pressure 10.0 mmHg Pulmonary Artery Systolic Pressu 49.4 mmHg Right Ventricular Systolic Press 49.4 mmHg FINDINGS LEFT VENTRICLE The left ventricular systolic function is moderately reduced with an estimated ejection fraction in the range of 40-45%. Wall thickness is measured at the upper limits of normal. Normal left ventricular size. RIGHT VENTRICLE Normal right ventricular size and systolic function. LEFT ATRIUM The left atrial size is mildly dilated. RIGHT ATRIUM The right atrial size is normal. ATRIAL SEPTUM Normal atrial septal thickness without atrial level shunting by limited color Doppler interrogation. AORTA The aortic root and proximal ascending aorta are normal in size on limited imaging. MITRAL VALVE There is mild prosthetic valve regurgitation. AORTIC VALVE Trileaflet aortic valve. Diffuse calcification of the aortic valve. Mild aortic valve stenosis. Aortic valve area is 1.1 cm. Aortic valve mean gradient is 8 mmHg. TRICUSPID VALVE Structurally normal tricuspid valve. Pacemaker wire is present within the right ventricular cavity. There is moderate tricuspid regurgitation. The estimated pulmonary arterial pressure is 49.4 mmHg. PULMONARY VALVE Mild pulmonary valve regurgitation. VESSELS The inferior vena cava is normal in size. PERICARDIUM A left sided pleural effusion is present. Pop Lamb MD (Electronically Signed) Final Date:26 Feb 2018 14:37
[2018-02-26] MEDS: SENNOSIDES 8.6 MG TAB PO SCH (20:36)
[2018-02-27] VITALS (9 sets, daily range): BP systolic 122–157; BP diastolic 67–91; PULSE 96–122; RESP 16–20; TEMP 97.5–98.8; O2SAT 94–98
[2018-02-27] MEDS: PANTOPRAZOLE SOD 40 MG DELAYED RELEASE TAB PO SCH (06:00)
[2018-02-27] MEDS: PIPERACIL-TAZO 4.5 GM PREMIX 100 ML IV SCH ×4 (06:00→17:45)
[2018-02-27] MEDS: INSULIN NovoLIN REGULAR SUPPLEMENTAL SCALE SQ SCH (08:00)
[2018-02-27] MEDS: POLYETHYLENE GLYCOL 17 GM PKG PO SCH (09:00)
[2018-02-27] MEDS: DOCUSATE SODIUM 100 MG CAP PO SCH ×2 (09:00→21:00)
[2018-02-27] MEDS: MAGNESIUM HYDROXIDE SUSP 30 ML CUP PO SCH (09:00)
[2018-02-27] MEDS: levETIRAcetam INJ 500 MG in SODIUM CHLORIDE 0.9% INJ 100 ML IV SCH (09:38)
[2018-02-27] MEDS: PRAVASTATIN SOD 20 MG TAB PO SCH (09:39)
[2018-02-27] MEDS: MULTIVITAMINS/MINERALS THERAPEUTIC TAB PO SCH (09:39)
[2018-02-27] MEDS: ASPIRIN 300 MG SUPP RECTAL SCH (09:40)
[2018-02-27] MEDS: SODIUM CHLORIDE 0.9% FLUSH 10 ML FLUSH IV FLUSH SCH ×2 (09:41→21:00)
[2018-02-27] MEDS ORDERED: ACETAMINOPHEN 325 MG TAB PO PRN (10:15)
--- NOTE | 2018-02-27 10:35 | RADRPT ---
EXAM DATE/TIME: 02/27/2018 09:30 [facility] COMPARISON: CHEST SINGLE AP, February 24, 2018, 5:07. INDICATIONS : Shortness of breath. MEDICAL HISTORY : Hypertension. Congestive heart failure. SURGICAL HISTORY : CABG. ENCOUNTER: Subsequent ACUITY: 4 - 6 days PAIN SCORE: Non-responsive. LOCATION: Bilateral chest FINDINGS: Central venous catheter, pacemaker and mediastinal drain and left chest tube are noted. There is no pneumothorax. 3-lead pacer is evident. Mild compensated cardiomegaly. Coarse interstitial changes without overt failure. CONCLUSION: Cardiomegaly without pneumothorax or significant failure. Cruz Vaughn MD FACR on February 27, 2018 at 10:31 Board Certified Radiologist. This report was verified electronically.
[2018-02-27 11:15] LABS: AUTOMATED NEUTROPHIL # 15.4 TH/MM3 (1.8-7.7); BASOPHIL # 0.1 TH/MM3 (0-0.2); BASOPHIL % 0.4 % (0.0-2.0); EOSINOPHIL # 0.8 TH/MM3 (0-0.4); EOSINOPHIL % 4.2 % (0.0-4.0); HEMATOCRIT 27.5 % (35.0-46.0); HEMOGLOBIN 8.8 GM/DL (11.6-15.3); LYMPH % 8.5 % (9.0-44.0); LYMPHOCYTE # 1.6 TH/MM3 (1.0-4.8); MEAN CELL VOLUME 85.8 FL (80.0-100.0); MEAN CORPUSCULAR HEMOGLOBIN 27.6 PG (27.0-34.0); MEAN CORPUSCULAR HGB CONC 32.1 % (32.0-36.0); MONO % 7.4 % (0.0-8.0); MONOCYTE # 1.4 TH/MM3 (0-0.9); NEUT % 79.5 % (16.0-70.0); PLATELET COUNT 295 TH/MM3 (150-450); RED BLOOD COUNT 3.21 MIL/MM3 (4.00-5.30); WHITE BLOOD COUNT 19.4 TH/MM3 (4.0-11.0)
[2018-02-27 11:39] LABS: ALBUMIN 2.2 GM/DL (3.4-5.0); ALT (GPT) 13 U/L (10-53); BICARBONATE 30.2 MEQ/L (21.0-32.0); BLOOD UREA NITROGEN 9 MG/DL (7-18); CALCIUM 7.9 MG/DL (8.5-10.1); CHLORIDE 108 MEQ/L (98-107); CREATININE 0.56 MG/DL (0.50-1.00); GLOMERULAR FILTRATION RATE 106 ML/MIN (>89); GLUCOSE,RANDOM 142 MG/DL (74-106); MAGNESIUM 1.6 MG/DL (1.5-2.5); SODIUM (NA) 144 MEQ/L (136-145)
[2018-02-27] MEDS: CARVEDILOL 3.125 MG TAB PO SCH ×2 (11:39→21:08)
[2018-02-27] MEDS: DIGOXIN 0.125 MG TAB PO SCH (11:40)
[2018-02-27 11:49] LABS: ALKALINE PHOSPHATASE 55 U/L (45-117); AST (GOT) 21 U/L (15-37); TOTAL BILIRUBIN ADULT 0.4 MG/DL (0.2-1.0); TOTAL PROTEIN 5.8 GM/DL (6.4-8.2)
--- NOTE | 2018-02-27 13:41 | PD.CAR.PN ---
CVT Progress Note Subjective/Hospital Course: 72-year-old patient of Dr. Finesse Chatman and Dr. Man initally seen 02/15 with a history of nonischemic cardiomyopathy and history of mitral regurgitation, complaining of some shortness of breath with exertion for the past couple of weeks and some tightness in her chest when lying down, had a followup with Dr. Man, underwent echocardiogram 01/18/2018 which showed an ejection fraction of 55%, mild to moderate aortic stenosis, severe mitral regurgitation, 2 regurgitation jets with 1 hugging the lateral wall, aneurysmal atrial septum, moderate tricuspid regurgitation with moderate pulmonary hypertension. She underwent cardiac catheterization 02/15/18 for evaluation. Ejection fraction was 45%. The left main had an 80% stenosis, proximal LAD less than 15. We were consulted for mitral valve replacement and coronary artery bypass grafting x 2 to the LAD and the circumflex. PAST MEDICAL HISTORY: Includes nonischemic cardiomyopathy, carotid artery stenosis, coronary artery disease, mitral regurgitation, aortic stenosis, tricuspid regurgitation, hypertension, hyperlipidemia, scleroderma, significant rheumatoid arthritis, and osteoporosis,. She has been off chronic steroids for about 8 years. She does take chronic RA medication. PAST SURGICAL HISTORY: Include Bi-V ICD 5 years ago with a generator change out 3 years ago, [employer] device,;bilateral knee replacement, 02/23 pt admitted electively for MVR, CABG x 2 02/24 last evening pt had a sudden episode of loss of consciousness, generalized shaking activity. She then was nonresponsive following this. she slowly responded, per Neuro notes , starting following commands but appeared to be weak in the left side. A stroke alert was called. CT Brain, Head CTA, Neck CTA unremarkable , for EEG today, started on Keppra she know is able to state name place and weaker on left than right swallow eval pending leave chest tube in , on ASA keep in CVICU 02/25 Doing better this am Following commands Moving L sided much better. Still a little weak compared to the right Maintain in ICU Appreciate Neurology input 02/26 Much better this am. More awake and responsive Activity per neurology D/C IVF 02/27 able to stand with assistance, left arm strength improved will need rehab at discharge will recommend low dose coumadin for 6 week 2/2 MVR tissue valve and INR 2-2.5 if ok with neuro keppra changed to po add low dose BB and digoxin for rate and rhythm control gentle diuresis Objective: GENERAL: A&O x 3 SKIN: Warm and dry. HEAD: Normocephalic. EYES: No scleral icterus. No injection or drainage. NECK: Supple, trachea midline. No JVD or lymphadenopathy. CARDIOVASCULAR: Regular rate and rhythm without murmurs, gallops, or rubs. slightly irregular RESPIRATORY: Breath sounds equal bilaterally. No accessory muscle use. diminished in bases, chest tube in place, to water seal drained GASTROINTESTINAL: Abdomen soft, non-tender, nondistended. MUSCULOSKELETAL: No cyanosis, or edema. BACK: Nontender without obvious deformity. No CVA tenderness. Neuro: left arm strength improved Vital Signs Date Time Temp Pulse Resp B/P (MAP) Pulse Ox O2 Delivery O2 Flow Rate FiO2 02/27/18 11:00 98.0 101 16 139/78 (98) 96 02/27/18 11:00 101 02/27/18 11:00 96 Room Air 02/27/18 07:46 97 21 02/27/18 07:00 97.5 122 18 148/91 (110) 94 02/27/18 07:00 122 02/27/18 07:00 94 Room Air 02/27/18 04:00 98 Room Air 02/27/18 04:00 98.0 103 18 153/87 (109) 98 02/27/18 04:00 108 02/27/18 00:00 97.9 97 20 157/80 (105) 98 02/27/18 00:00 98 Room Air 02/27/18 00:00 96 02/26/18 21:00 97 Nasal Cannula 2.00 02/26/18 20:00 98.9 95 20 138/70 (92) 98 02/26/18 20:00 98 Nasal Cannula 2.00 02/26/18 20:00 95 02/26/18 15:00 98 Nasal Cannula 2.00 02/26/18 15:00 98 02/26/18 15:00 98.1 98 20 149/77 (101) 98 Labs: Laboratory Tests Test 02/27/18 10:54 White Blood Count 19.4 TH/MM3 (4.0-11.0) Red Blood Count 3.21 MIL/MM3 (4.00-5.30) Hemoglobin 8.8 GM/DL (11.6-15.3) Hematocrit 27.5 % (35.0-46.0) Mean Corpuscular Volume 85.8 FL (80.0-100.0) Mean Corpuscular Hemoglobin 27.6 PG (27.0-34.0) Mean Corpuscular Hemoglobin Concent 32.1 % (32.0-36.0) Red Cell Distribution Width 18.0 % (11.6-17.2) Platelet Count 295 TH/MM3 (150-450) Mean Platelet Volume 8.0 FL (7.0-11.0) Neutrophils (%) (Auto) 79.5 % (16.0-70.0) Lymphocytes (%) (Auto) 8.5 % (9.0-44.0) Monocytes (%) (Auto) 7.4 % (0.0-8.0) Eosinophils (%) (Auto) 4.2 % (0.0-4.0) Basophils (%) (Auto) 0.4 % (0.0-2.0) Neutrophils # (Auto) 15.4 TH/MM3 (1.8-7.7) Lymphocytes # (Auto) 1.6 TH/MM3 (1.0-4.8) Monocytes # (Auto) 1.4 TH/MM3 (0-0.9) Eosinophils # (Auto) 0.8 TH/MM3 (0-0.4) Basophils # (Auto) 0.1 TH/MM3 (0-0.2) CBC Comment DIFF FINAL Differential Comment Blood Urea Nitrogen 9 MG/DL (7-18) Creatinine 0.56 MG/DL (0.50-1.00) Random Glucose 142 MG/DL (74-106) Total Protein 5.8 GM/DL (6.4-8.2) Albumin 2.2 GM/DL (3.4-5.0) Calcium Level 7.9 MG/DL (8.5-10.1) Magnesium Level 1.6 MG/DL (1.5-2.5) Alkaline Phosphatase 55 U/L (45-117) Aspartate Amino Transf (AST/SGOT) 21 U/L (15-37) Alanine Aminotransferase (ALT/SGPT) 13 U/L (10-53) Total Bilirubin 0.4 MG/DL (0.2-1.0) Sodium Level 144 MEQ/L (136-145) Potassium Level 3.8 MEQ/L (3.5-5.1) Chloride Level 108 MEQ/L (98-107) Carbon Dioxide Level 30.2 MEQ/L (21.0-32.0) Anion Gap 6 MEQ/L (5-15) Estimat Glomerular Filtration Rate 106 ML/MIN (>89) Thyroid Stimulating Hormone 3rd Gen 3.320 uIU/ML (0.358-3.740) Result Diagram: 02/27/18 1054 02/27/18 1054 Telemetry: V paced (1) S/P MVR (mitral valve replacement) (2) S/P CABG x 1 Plan: on ASA, statin , start low dose BB , restart dig po start low dose coumadin if ok with Neuro OT/PT speech therapy OOB when cleared with Neuro (3) Hyperlipemia Plan: on statin (4) Hypertension Plan: Keep SBP 140-180 avoid hypotension (5) Scleroderma (6) Coronary artery disease (7) Mitral regurgitation (8) TIA/ CVA Plan: Neuro following will need acute rehab placement (9) Blood loss anemia Plan: quiac stool on PPI f/u HGb in am Cecelia Duke February 27, 2018 13:41
[2018-02-27] MEDS ORDERED: POTASSIUM CHLORIDE 10 MEQ CONTROLLED RELEASE TAB PO ONE (13:45)
[2018-02-27] MEDS ORDERED: FUROSEMIDE 20 MG/2 ML VIAL IV PUSH ONE (13:45)
[2018-02-27] MEDS: MAGNESIUM SULFATE 1 GM PREMIX 100 ML IV SCH ×2 (14:21→15:33)
[2018-02-27] MEDS ORDERED: POTASSIUM BICARBONATE 25 MEQ EFFERVESCENT TAB PO ONE (15:00)
[2018-02-27] MEDS: SENNOSIDES 8.6 MG TAB PO SCH (21:00)
[2018-02-27] MEDS: levETIRAcetam 500 MG TAB PO SCH (21:08)
[2018-02-28] VITALS (7 sets, daily range): BP systolic 83–130; BP diastolic 55–78; PULSE 79–152; RESP 16–24; TEMP 97.4–98.7; O2SAT 84–99
[2018-02-28] MEDS: PIPERACIL-TAZO 4.5 GM PREMIX 100 ML IV SCH ×2 (01:02→06:04)
[2018-02-28 05:54] LABS: PROTHROMBIN TIME - PATIENT 10.3 SEC (9.8-11.6)
[2018-02-28 05:57] LABS: BICARBONATE 34.5 MEQ/L (21.0-32.0); CREATININE 0.63 MG/DL (0.50-1.00); MAGNESIUM 1.9 MG/DL (1.5-2.5)
[2018-02-28] MEDS: PANTOPRAZOLE SOD 40 MG DELAYED RELEASE TAB PO SCH (06:03)
[2018-02-28] MEDS: METOPROLOL TARTRATE 5 MG/5 ML VIAL IV PUSH PRN ×3 (06:42→18:08)
[2018-02-28] MEDS ORDERED: AMIODARONE 150 MG/D5W 97 ML BOLUS 10 MINUTES IV ONE ×2 (07:30)
[2018-02-28] MEDS ORDERED: AMIODARONE INJ 450 MG in D5W (EXCEL BAG) INJ 241 ML IV PRN ×4 (07:30)
[2018-02-28] MEDS ORDERED: MAGNESIUM SULFATE 1 GM PREMIX 100 ML IV STA (07:56)
[2018-02-28] MEDS ORDERED: MAGNESIUM SULFATE 1 GM PREMIX 100 ML IV ONE (08:00)
[2018-02-28] MEDS ORDERED: METOPROLOL TARTRATE 5 MG/5 ML VIAL IV PUSH PRN (08:30)
[2018-02-28] MEDS ORDERED: DIGOXIN 0.5 MG/2 ML VIAL IV PUSH ONE (08:45)
--- NOTE | 2018-02-28 08:54 | PD.CAR.PN ---
CVT Progress Note Subjective/Hospital Course: 72-year-old patient of Dr. Finesse Chatman and Dr. Man initally seen 02/15 with a history of nonischemic cardiomyopathy and history of mitral regurgitation, complaining of some shortness of breath with exertion for the past couple of weeks and some tightness in her chest when lying down, had a followup with Dr. Man, underwent echocardiogram 01/18/2018 which showed an ejection fraction of 55%, mild to moderate aortic stenosis, severe mitral regurgitation, 2 regurgitation jets with 1 hugging the lateral wall, aneurysmal atrial septum, moderate tricuspid regurgitation with moderate pulmonary hypertension. She underwent cardiac catheterization 02/15/18 for evaluation. Ejection fraction was 45%. The left main had an 80% stenosis, proximal LAD less than 15. We were consulted for mitral valve replacement and coronary artery bypass grafting x 2 to the LAD and the circumflex. PAST MEDICAL HISTORY: Includes nonischemic cardiomyopathy, carotid artery stenosis, coronary artery disease, mitral regurgitation, aortic stenosis, tricuspid regurgitation, hypertension, hyperlipidemia, scleroderma, significant rheumatoid arthritis, and osteoporosis,. She has been off chronic steroids for about 8 years. She does take chronic RA medication. PAST SURGICAL HISTORY: Include Bi-V ICD 5 years ago with a generator change out 3 years ago, [employer] device,;bilateral knee replacement, 02/23 pt admitted electively for MVR, CABG x 2 02/24 last evening pt had a sudden episode of loss of consciousness, generalized shaking activity. She then was nonresponsive following this. she slowly responded, per Neuro notes , starting following commands but appeared to be weak in the left side. A stroke alert was called. CT Brain, Head CTA, Neck CTA unremarkable , for EEG today, started on Keppra she know is able to state name place and weaker on left than right swallow eval pending leave chest tube in , on ASA keep in CVICU 02/25 Doing better this am Following commands Moving L sided much better. Still a little weak compared to the right Maintain in ICU Appreciate Neurology input 02/26 Much better this am. More awake and responsive Activity per neurology D/C IVF 02/27 able to stand with assistance, left arm strength improved will need rehab at discharge will recommend low dose coumadin for 6 week 2/2 MVR tissue valve and INR 2-2.5 if ok with neuro keppra changed to po add low dose BB and digoxin for rate and rhythm control gentle diuresis 02/28/18 pt went Afib RVR this am bolus of amiodarone given dose of IV dig then po amiodarone and dose IV BB X 1 mag replaced pacer checked by rep yesterday/ stable eval for removal removal of chest tube today Objective: GENERAL: A&O, weak SKIN: Warm and dry. prevena dressing to chest , incision intact to left leg HEAD: Normocephalic. EYES: No scleral icterus. No injection or drainage. NECK: Supple, trachea midline. No JVD or lymphadenopathy. CARDIOVASCULAR: irregular rate and rhythm Regular rate and rhythm without murmurs, gallops, + rubs. RESPIRATORY: diminished in basses, few crackles Breath sounds equal bilaterally. No accessory muscle use. chest tube to water seal, drained 140cc/ 12 hrs GASTROINTESTINAL: Abdomen soft, non-tender, nondistended. MUSCULOSKELETAL: No cyanosis, or edema. BACK: Nontender without obvious deformity. No CVA tenderness. Vital Signs Date Time Temp Pulse Resp B/P (MAP) Pulse Ox O2 Delivery O2 Flow Rate FiO2 02/28/18 07:41 166 97/64 02/28/18 03:00 103 02/28/18 03:00 97.5 103 20 130/76 (94) 94 02/28/18 03:00 94 Room Air 02/27/18 23:00 97.6 103 20 128/77 (94) 97 02/27/18 23:00 97 Room Air 02/27/18 23:00 103 02/27/18 21:06 94 21 02/27/18 19:00 98.4 108 20 128/70 (89) 94 02/27/18 19:00 94 Room Air 02/27/18 19:00 108 02/27/18 15:00 96 Room Air 02/27/18 15:00 98.8 106 20 122/67 (85) 96 02/27/18 15:00 106 02/27/18 11:00 98.0 101 16 139/78 (98) 96 02/27/18 11:00 101 02/27/18 11:00 96 Room Air Labs: Laboratory Tests Test 02/28/18 04:30 Prothrombin Time 10.3 SEC (9.8-11.6) Prothromb Time International Ratio 1.0 RATIO Blood Urea Nitrogen 9 MG/DL (7-18) Creatinine 0.63 MG/DL (0.50-1.00) Random Glucose 103 MG/DL (74-106) Calcium Level 8.0 MG/DL (8.5-10.1) Magnesium Level 1.9 MG/DL (1.5-2.5) Sodium Level 141 MEQ/L (136-145) Potassium Level 4.2 MEQ/L (3.5-5.1) Chloride Level 103 MEQ/L (98-107) Carbon Dioxide Level 34.5 MEQ/L (21.0-32.0) Anion Gap 4 MEQ/L (5-15) Estimat Glomerular Filtration Rate 92 ML/MIN (>89) Result Diagram: 02/27/18 1054 02/28/18 0430 (1) S/P MVR (mitral valve replacement) (2) S/P CABG x 1 Plan: on ASA, statin , BB , dig po po amiodarone start low dose coumadin if ok with Neuro OT/PT speech therapy OOB when cleared with Neuro (3) Hyperlipemia Plan: on statin (4) Hypertension Plan: Keep SBP 140-180 avoid hypotension (5) Scleroderma (6) Coronary artery disease (7) Mitral regurgitation (8) TIA/ CVA Plan: Neuro following will need acute rehab placement (9) Blood loss anemia Plan: quiac stool on PPI f/u HGb in am Cecelia Duke February 28, 2018 08:53
[2018-02-28] MEDS: MULTIVITAMINS/MINERALS THERAPEUTIC TAB PO SCH (08:55)
[2018-02-28] MEDS: levETIRAcetam 500 MG TAB PO SCH ×2 (08:55→21:14)
[2018-02-28] MEDS: CARVEDILOL 3.125 MG TAB PO SCH ×2 (08:55→21:15)
[2018-02-28] MEDS: PRAVASTATIN SOD 20 MG TAB PO SCH (08:55)
[2018-02-28] MEDS: SODIUM CHLORIDE 0.9% FLUSH 10 ML FLUSH IV FLUSH SCH ×2 (08:56→21:16)
[2018-02-28] MEDS: DIGOXIN 0.125 MG TAB PO SCH (08:56)
[2018-02-28] MEDS: MAGNESIUM HYDROXIDE SUSP 30 ML CUP PO SCH (08:56)
[2018-02-28] MEDS: DOCUSATE SODIUM 100 MG CAP PO SCH ×2 (08:57→21:15)
[2018-02-28] MEDS: POLYETHYLENE GLYCOL 17 GM PKG PO SCH (08:57)
[2018-02-28] MEDS ORDERED: DIGOXIN 0.125 MG TAB PO SCH (09:00)
[2018-02-28] MEDS: POTASSIUM CHLORIDE 20 MEQ CONTROLLED RELEASE TAB PO SCH ×2 (09:55→21:15)
[2018-02-28] MEDS: AMIODARONE 200 MG TAB PO SCH ×3 (10:12→21:14)
[2018-02-28] MEDS: FUROSEMIDE 40 MG/4 ML VIAL IV PUSH SCH (10:17)
[2018-02-28] MEDS ORDERED: AMIODARONE INJ 150 MG in DEXTROSE 5% IN WATER 100ML INJ 97 ML IV ONE ×2 (10:52)
[2018-02-28] MEDS ORDERED: METOPROLOL TARTRATE 25 MG TAB PO ONE (11:00)
[2018-02-28] MEDS ORDERED: METOPROLOL TARTRATE 5 MG/5 ML VIAL IV PUSH ONE (11:00)
[2018-02-28] MEDS: DILTIAZEM HCL 30 MG TAB PO SCH ×2 (18:00→21:15)
[2018-02-28] MEDS: SENNOSIDES 8.6 MG TAB PO SCH (21:15)
[2018-03-01] VITALS (15 sets, daily range): BP systolic 94–136; BP diastolic 51–69; PULSE 69–92; RESP 16–20; TEMP 97.6–98.3; O2SAT 20–97
[2018-03-01 04:46] LABS: MEAN CELL VOLUME 86.5 FL (80.0-100.0); MEAN CORPUSCULAR HGB CONC 32.3 % (32.0-36.0); MEAN PLATELET VOLUME 8.2 FL (7.0-11.0); PLATELET COUNT 439 TH/MM3 (150-450); RED BLOOD COUNT 3.58 MIL/MM3 (4.00-5.30); RED CELL DISTRIBUTION WIDTH 19.1 % (11.6-17.2)
[2018-03-01 05:11] LABS: BICARBONATE 29.7 MEQ/L (21.0-32.0); CALCIUM 8.3 MG/DL (8.5-10.1); CREATININE 0.62 MG/DL (0.50-1.00); MAGNESIUM 1.9 MG/DL (1.5-2.5)
[2018-03-01 05:28] LABS: DIGOXIN 1.3 NG/ML (0.8-2.0)
[2018-03-01] MEDS: AMIODARONE 200 MG TAB PO SCH ×3 (05:54→21:28)
[2018-03-01] MEDS: PANTOPRAZOLE SOD 40 MG DELAYED RELEASE TAB PO SCH (05:54)
[2018-03-01] MEDS: POLYETHYLENE GLYCOL 17 GM PKG PO SCH (09:00)
[2018-03-01] MEDS: MAGNESIUM HYDROXIDE SUSP 30 ML CUP PO SCH (09:00)
[2018-03-01] MEDS: SODIUM CHLORIDE 0.9% FLUSH 10 ML FLUSH IV FLUSH SCH ×2 (09:00→21:00)
[2018-03-01] MEDS: DOCUSATE SODIUM 100 MG CAP PO SCH ×2 (09:00→21:00)
[2018-03-01] MEDS: DILTIAZEM HCL 30 MG TAB PO SCH ×4 (09:42→21:28)
[2018-03-01] MEDS: MAGNESIUM SULFATE 1 GM PREMIX 100 ML IV SCH ×2 (09:42→11:15)
[2018-03-01] MEDS: FUROSEMIDE 40 MG/4 ML VIAL IV PUSH SCH (09:42)
[2018-03-01] MEDS: levETIRAcetam 500 MG TAB PO SCH ×2 (09:42→21:24)
[2018-03-01] MEDS: DIGOXIN 0.125 MG TAB PO SCH (09:42)
[2018-03-01] MEDS: ASPIRIN EC 81 MG TABEC PO SCH (09:43)
[2018-03-01] MEDS: POTASSIUM CHLORIDE 10 MEQ CONTROLLED RELEASE TAB PO SCH (09:43)
[2018-03-01] MEDS: CARVEDILOL 3.125 MG TAB PO SCH ×2 (09:43→21:27)
[2018-03-01] MEDS: MULTIVITAMINS/MINERALS THERAPEUTIC TAB PO SCH (09:43)
[2018-03-01] MEDS: PRAVASTATIN SOD 20 MG TAB PO SCH (09:43)
--- NOTE | 2018-03-01 09:50 | PD.CAR.PN ---
CVT Progress Note Subjective/Hospital Course: 72-year-old patient of Dr. Finesse Chatamn and Dr. Man initally seen 02/15 with a history of nonischemic cardiomyopathy and history of mitral regurgitation, complaining of some shortness of breath with exertion for the past couple of weeks and some tightness in her chest when lying down, had a followup with Dr. Man, underwent echocardiogram 01/18/2018 which showed an ejection fraction of 55%, mild to moderate aortic stenosis, severe mitral regurgitation, 2 regurgitation jets with 1 hugging the lateral wall, aneurysmal atrial septum, moderate tricuspid regurgitation with moderate pulmonary hypertension. She underwent cardiac catheterization 02/15/18 for evaluation. Ejection fraction was 45%. The left main had an 80% stenosis, proximal LAD less than 15. We were consulted for mitral valve replacement and coronary artery bypass grafting x 2 to the LAD and the circumflex. PAST MEDICAL HISTORY: Includes nonischemic cardiomyopathy, carotid artery stenosis, coronary artery disease, mitral regurgitation, aortic stenosis, tricuspid regurgitation, hypertension, hyperlipidemia, scleroderma, significant rheumatoid arthritis, and osteoporosis,. She has been off chronic steroids for about 8 years. She does take chronic RA medication. PAST SURGICAL HISTORY: Include Bi-V ICD 5 years ago with a generator change out 3 years ago, [employer] device,;bilateral knee replacement, 02/23 pt admitted electively for MVR, CABG x 2 02/24 last evening pt had a sudden episode of loss of consciousness, generalized shaking activity. She then was nonresponsive following this. she slowly responded, per Neuro notes , starting following commands but appeared to be weak in the left side. A stroke alert was called. CT Brain, Head CTA, Neck CTA unremarkable , for EEG today, started on Keppra she know is able to state name place and weaker on left than right swallow eval pending leave chest tube in , on ASA keep in CVICU 02/25 Doing better this am Following commands Moving L sided much better. Still a little weak compared to the right Maintain in ICU Appreciate Neurology input 02/26 Much better this am. More awake and responsive Activity per neurology D/C IVF 02/27 able to stand with assistance, left arm strength improved will need rehab at discharge will recommend low dose coumadin for 6 week 2/2 MVR tissue valve and INR 2-2.5 if ok with neuro keppra changed to po add low dose BB and digoxin for rate and rhythm control gentle diuresis 02/28/18 pt went Afib RVR this am bolus of amiodarone given dose of IV dig then po amiodarone and dose IV BB X 1 mag replaced pacer checked by rep yesterday/ stable eval for removal of chest tube today 03/01/18 on 3 liter nasal cannula chest tubes removed without difficulty f/u CXR in am back in [facility] rhythm intermittent v paced HGB 10 Objective: GENERAL: A&O x 3 SKIN: Warm and dry. prevena dressing to chest HEAD: Normocephalic. EYES: No scleral icterus. No injection or drainage. NECK: Supple, trachea midline. No JVD or lymphadenopathy. CARDIOVASCULAR: Regular rate and rhythm without murmurs, gallops, or rubs. RESPIRATORY: Breath sounds equal bilaterally. No accessory muscle use. diminished in bases GASTROINTESTINAL: Abdomen soft, non-tender, nondistended. MUSCULOSKELETAL: No cyanosis, or edema. BACK: Nontender without obvious deformity. No CVA tenderness. Vital Signs Date Time Temp Pulse Resp B/P (MAP) Pulse Ox O2 Delivery O2 Flow Rate FiO2 03/01/18 07:41 95 Nasal Cannula 3.00 03/01/18 07:00 98.1 75 16 136/69 (91) 97 03/01/18 07:00 81 03/01/18 07:00 97 Room Air 03/01/18 03:00 78 03/01/18 03:00 97.6 78 20 126/65 (85) 03/01/18 03:00 99 Nasal Cannula 2.00 02/28/18 23:00 97.9 79 18 118/63 (81) 02/28/18 23:00 79 02/28/18 23:00 Nasal Cannula 2.00 02/28/18 21:25 Nasal Cannula 3.00 02/28/18 19:00 88 02/28/18 19:00 97.6 88 18 108/62 (77) 02/28/18 19:00 Nasal Cannula 2.00 02/28/18 15:00 99 Room Air 02/28/18 15:00 98.7 137 22 108/78 (88) 99 02/28/18 15:00 152 02/28/18 15:00 98.7 137 22 108/78 (88) 99 02/28/18 12:00 95 Nasal Cannula 2.00 02/28/18 11:28 114 125/55 02/28/18 11:00 152 02/28/18 11:00 97.4 152 16 125/55 (78) 95 02/28/18 11:00 95 Nasal Cannula 2.00 02/28/18 11:00 97.4 152 16 125/55 (78) 95 Labs: Laboratory Tests Test 03/01/18 03:34 White Blood Count 19.0 TH/MM3 (4.0-11.0) Red Blood Count 3.58 MIL/MM3 (4.00-5.30) Hemoglobin 10.0 GM/DL (11.6-15.3) Hematocrit 31.0 % (35.0-46.0) Mean Corpuscular Volume 86.5 FL (80.0-100.0) Mean Corpuscular Hemoglobin 28.0 PG (27.0-34.0) Mean Corpuscular Hemoglobin Concent 32.3 % (32.0-36.0) Red Cell Distribution Width 19.1 % (11.6-17.2) Platelet Count 439 TH/MM3 (150-450) Mean Platelet Volume 8.2 FL (7.0-11.0) Blood Urea Nitrogen 13 MG/DL (7-18) Creatinine 0.62 MG/DL (0.50-1.00) Random Glucose 106 MG/DL (74-106) Calcium Level 8.3 MG/DL (8.5-10.1) Magnesium Level 1.9 MG/DL (1.5-2.5) Sodium Level 140 MEQ/L (136-145) Potassium Level 4.8 MEQ/L (3.5-5.1) Chloride Level 101 MEQ/L (98-107) Carbon Dioxide Level 29.7 MEQ/L (21.0-32.0) Anion Gap 9 MEQ/L (5-15) Estimat Glomerular Filtration Rate 94 ML/MIN (>89) Digoxin Level 1.3 NG/ML (0.8-2.0) Result Diagram: 03/01/184 03/01/18333 (1) S/P MVR (mitral valve replacement) (2) S/P CABG x 1 Plan: on ASA, statin , BB , dig po po amiodarone , cardizem start low dose coumadin if ok with Neuro OT/PT speech therapy OOB when cleared with Neuro (3) Hyperlipemia Plan: on statin (4) Hypertension Plan: Keep SBP 140-180 avoid hypotension (5) Scleroderma (6) Coronary artery disease (7) Mitral regurgitation (8) TIA/ CVA Plan: Neuro following will need acute rehab placement (9) Blood loss anemia Plan: acute / postop quiac stool on PPI f/u HGb in am / now stable Cecelia Duke March 01, 2018 09:50
--- NOTE | 2018-03-01 15:42 | HHI.PR ---
Review/Management Diagnosis possible TIA-focal sz---symptoms resolved Plan continue keppra 500 mg bid po ok to anticoagulate with coumadin from neuro standpoint Diagnosis/Plan: Subjective Subjective Comments No acute events reported No further focal weakness Active Medications Current Medications Medications (Trade) Dose Ordered Sig/Tommie Route Start Time Stop Time Status Last Admin (NS Flush) 2 ml BID IV FLUSH 02/23/18 21:00 02/28/18 21:16 (NS Flush) 2 ml UNSCH PRN IV FLUSH 02/23/18 13:30 (Tylenol) 650 mg Q4H PRN PO 02/23/18 13:30 02/26/18 16:29 (Zofran Inj) 4 mg Q6H PRN IV PUSH 02/23/18 13:30 02/25/18 13:46 (Duoneb Neb) 1 ampule Q2HR NEB PRN NEB 02/23/18 13:30 02/26/18 20:58 (Pravachol) 20 mg DAILY PO 02/24/18 09:00 03/01/18 09:43 Patient Own Medication PT OWN MED: (Leflunomide 20 ... DAILY PO 02/24/18 09:00 Future Hold (Ativan Inj) 1 mg Q4H PRN IV PUSH 02/23/18 20:45 (Colace) 100 mg BID PO 02/24/18 21:00 02/28/18 21:15 (Theragran M Tab) 1 tab DAILY PO 02/25/18 09:00 03/01/18 09:43 (Milk Of Magnesia Liq) 30 ml DAILY PO 02/25/18 09:00 02/26/18 08:38 (Dulcolax Supp) 10 mg UNSCH PRN RECTAL 02/24/18 09:15 (Miralax) 17 gm DAILY PO 02/25/18 09:00 02/26/18 08:39 (Senokot) 8.6 mg HS PO 02/24/18 21:00 02/28/18 21:15 (Fleets Enema (Adult)) 118 ml UNSCH PRN RECTAL 02/24/18 09:15 (Protonix) 40 mg DAILY@06 PO 02/27/18 06:00 03/01/18 05:54 (Tylenol) 650 mg Q4H PRN PO 02/27/18 10:15 (Lanoxin) 0.125 mg DAILY PO 02/27/18 10:30 03/01/18 09:42 (Keppra) 500 mg BID PO 02/27/18 21:00 03/01/18 09:42 (Lasix Inj) 40 mg DAILY IV PUSH 02/28/18 09:00 03/01/18 09:42 (Lopressor Inj) 2.5 mg Q6H PRN IV PUSH 02/28/18 08:30 (Cordarone) 400 mg Q8HR PO 02/28/18 08:45 03/01/18 13:24 (Coreg) 6.25 mg Q12HR PO 02/28/18 21:00 03/01/18 09:43 (Cardizem) 30 mg QID PO 02/28/18 18:00 03/01/18 13:24 (Ecotrin Ec) 81 mg DAILY PO 03/01/18 09:00 03/01/18 09:43 (KCl) 10 meq DAILY PO 03/01/18 09:00 03/01/18 09:43 Allergies Allergies Coded Allergies Sulfa (Sulfonamide Antibiotics) (Verified Allergy, Severe, Rash, 02/23/18) Exam I&O / VS 03/01/18 03/01/18 03/02/18 15:00 23:00 07:00 Intake Total 800 ml Output Total 900 ml Balance -100 ml Intake Oral 800 ml Output Urine Total 900 ml Chest Tube Drainage Total 0 ml # Bowel Movements 2 Vital Signs Date Time Temp Pulse Resp B/P (MAP) Pulse Ox O2 Delivery O2 Flow Rate FiO2 03/01/18 15:00 90 03/01/18 15:00 97 Room Air 03/01/18 15:00 98.0 92 16 115/54 (74) 97 03/01/18 11:00 96 Room Air 03/01/18 11:00 97.9 91 16 123/62 (82) 96 03/01/18 11:00 91 03/01/18 07:41 95 Nasal Cannula 3.00 03/01/18 07:00 98.1 75 16 136/69 (91) 97 03/01/18 07:00 81 03/01/18 07:00 97 Room Air 03/01/18 03:00 78 03/01/18 03:00 97.6 78 20 126/65 (85) 03/01/18 03:00 99 Nasal Cannula 2.00 02/28/18 23:00 97.9 79 18 118/63 (81) 02/28/18 23:00 79 02/28/18 23:00 Nasal Cannula 2.00 02/28/18 21:25 Nasal Cannula 3.00 02/28/18 19:00 88 02/28/18 19:00 97.6 88 18 108/62 (77) 02/28/18 19:00 Nasal Cannula 2.00 Exam Comments neuro exam stable--moves equally bilaterally Objective Micro and Labs Laboratory Tests Test 03/01/18 03:34 White Blood Count 19.0 Red Blood Count 3.58 Hemoglobin 10.0 Hematocrit 31.0 Mean Corpuscular Volume 86.5 Mean Corpuscular Hemoglobin 28.0 Mean Corpuscular Hemoglobin Concent 32.3 Red Cell Distribution Width 19.1 Platelet Count 439 Mean Platelet Volume 8.2 Blood Urea Nitrogen 13 Creatinine 0.62 Random Glucose 106 Calcium Level 8.3 Magnesium Level 1.9 Sodium Level 140 Potassium Level 4.8 Chloride Level 101 Carbon Dioxide Level 29.7 Anion Gap 9 Estimat Glomerular Filtration Rate 94 Digoxin Level 1.3 Date/Time Source Procedure Growth Status 02/24/18 10:55 Blood Peripheral Aerobic Blood Culture - Final NO GROWTH IN 5 DAYS Complete 02/24/18 10:55 Blood Peripheral Anaerobic Blood Culture - Final NO GROWTH IN 5 DAYS Complete 02/24/18 10:45 Urine Catheterized Urine Urine Culture - Final NO GROWTH IN [address] MD PhD March 01, 2018 15:42
[2018-03-01] MEDS: SENNOSIDES 8.6 MG TAB PO SCH (21:00)
[2018-03-02] VITALS (13 sets, daily range): BP systolic 93–117; BP diastolic 50–58; PULSE 68–84; RESP 17–18; TEMP 97.4–98.6; O2SAT 93
--- NOTE | 2018-03-02 04:44 | RADRPT ---
EXAM DATE/TIME: 03/02/2018 03:55 [facility] COMPARISON: CHEST SINGLE AP, February 27, 2018, 9:30. INDICATIONS : Shortness of breath, possible pulmonary disease. MEDICAL HISTORY : Hypertension. Congestive heart failure. SURGICAL HISTORY : CABG. ENCOUNTER: Subsequent ACUITY: 1 week PAIN SCORE: Non-responsive. LOCATION: Bilateral chest FINDINGS: A single AP semierect view of the chest was obtained and again demonstrates the patient is status pos t median sternotomy. An artificial heart valve is again noted. The left subclavian AV sequential ivy svenous pacer remains in place. Multiple overlying retrocardiac leads are present. Coarse interstitia l opacities are again noted with no new consolidation or effusion. The heart size is at the upper salas its of normal. CONCLUSION: Stable appearance. Jozef Pedro MD on March 02, 2018 at 4:41 Board Certified Radiologist. This report was verified electronically.
[2018-03-02 05:02] LABS: HEMATOCRIT 30.3 % (35.0-46.0); HEMOGLOBIN 9.8 GM/DL (11.6-15.3); MEAN CELL VOLUME 86.1 FL (80.0-100.0); MEAN CORPUSCULAR HEMOGLOBIN 27.9 PG (27.0-34.0); MEAN CORPUSCULAR HGB CONC 32.4 % (32.0-36.0); PLATELET COUNT 483 TH/MM3 (150-450); RED BLOOD COUNT 3.52 MIL/MM3 (4.00-5.30); RED CELL DISTRIBUTION WIDTH 18.9 % (11.6-17.2); WHITE BLOOD COUNT 17.5 TH/MM3 (4.0-11.0)
[2018-03-02 05:13] LABS: BICARBONATE 32.9 MEQ/L (21.0-32.0); CALCIUM 8.3 MG/DL (8.5-10.1); CREATININE 0.68 MG/DL (0.50-1.00); MAGNESIUM 2.1 MG/DL (1.5-2.5)
[2018-03-02] MEDS: AMIODARONE 200 MG TAB PO SCH (06:25)
[2018-03-02] MEDS: PANTOPRAZOLE SOD 40 MG DELAYED RELEASE TAB PO SCH (06:25)
[2018-03-02] MEDS: ASPIRIN EC 81 MG TABEC PO SCH (08:58)
[2018-03-02] MEDS: POTASSIUM CHLORIDE 10 MEQ CONTROLLED RELEASE TAB PO SCH (08:58)
[2018-03-02] MEDS: levETIRAcetam 500 MG TAB PO SCH (08:58)
[2018-03-02] MEDS: DIGOXIN 0.125 MG TAB PO SCH (08:59)
[2018-03-02] MEDS: DILTIAZEM HCL 30 MG TAB PO SCH (08:59)
[2018-03-02] MEDS: FUROSEMIDE 40 MG/4 ML VIAL IV PUSH SCH (08:59)
[2018-03-02] MEDS: PRAVASTATIN SOD 20 MG TAB PO SCH (08:59)
[2018-03-02] MEDS: CARVEDILOL 3.125 MG TAB PO SCH (08:59)
[2018-03-02] MEDS: MULTIVITAMINS/MINERALS THERAPEUTIC TAB PO SCH (08:59)
[2018-03-02] MEDS: DOCUSATE SODIUM 100 MG CAP PO SCH (08:59)
[2018-03-02] MEDS: SODIUM CHLORIDE 0.9% FLUSH 10 ML FLUSH IV FLUSH SCH (09:00)
[2018-03-02] MEDS: POLYETHYLENE GLYCOL 17 GM PKG PO SCH (09:00)
[2018-03-02] MEDS: MAGNESIUM HYDROXIDE SUSP 30 ML CUP PO SCH (09:00)
[2018-03-02] MEDS ORDERED: PLAV75TA29 PO (10:15)
[2018-03-02] MEDS ORDERED: LEVE500 PO (10:15)
[2018-03-02] MEDS ORDERED: CARV3.125 PO (10:15)
[2018-03-02] MEDS ORDERED: AMIO200T PO (10:15)
[2018-03-02] MEDS ORDERED: DOCU1CAP39 PO (10:15)
[2018-03-02] MEDS ORDERED: DILT31TA PO (10:15)
--- NOTE | 2018-03-02 10:19 | HHI.DS ---
Discharge Summary Admission Date February 23, 2018 at 05:12 Discharge Date: March 02, 2018 Admitting Diagnosis 1) CHF (congestive heart failure), NYHA class III (2) Mitral regurgitation (3) Coronary artery disease (1) Hyperlipemia Diagnosis: Principal ICD Codes: E78.5 - Hyperlipidemia, unspecified (2) Mitral regurgitation Diagnosis: Principal ICD Codes: I34.0 - Nonrheumatic mitral (valve) insufficiency (3) Hypertension Diagnosis: Principal ICD Codes: I10 - Essential (primary) hypertension (4) CHF (congestive heart failure), NYHA class III ICD Codes: I50.9 - Heart failure, unspecified (5) TIA/ CVA Diagnosis: Principal (6) Blood loss anemia Diagnosis: Secondary ICD Codes: D50.0 - Iron deficiency anemia secondary to blood loss (chronic) (7) S/P MVR (mitral valve replacement) Diagnosis: Secondary ICD Codes: Z95.2 - Presence of prosthetic heart valve (8) S/P CABG x 1 Diagnosis: Secondary ICD Codes: Z95.1 - Presence of aortocoronary bypass graft Procedures MVR with a 25 Magna Ease tissue valve 02/23 CABG x 1 JIMENEZ to LAD EVH BREN Lysis of adhesions Brief History 72-year-old patient of Dr. Finesse Chatman and Dr. Man initally seen 02/15 with a history of nonischemic cardiomyopathy and history of mitral regurgitation, complaining of some shortness of breath with exertion for the past couple of weeks and some tightness in her chest when lying down, had a followup with Dr. Man, underwent echocardiogram 01/18/2018 which showed an ejection fraction of 55%, mild to moderate aortic stenosis, severe mitral regurgitation, 2 regurgitation jets with 1 hugging the lateral wall, aneurysmal atrial septum, moderate tricuspid regurgitation with moderate pulmonary hypertension. She underwent cardiac catheterization 02/15/18 for evaluation. Ejection fraction was 45%. The left main had an 80% stenosis, proximal LAD less than 15. We were consulted for mitral valve replacement and coronary artery bypass grafting x 2 to the LAD and the circumflex. PAST MEDICAL HISTORY: Includes nonischemic cardiomyopathy, carotid artery stenosis, coronary artery disease, mitral regurgitation, aortic stenosis, tricuspid regurgitation, hypertension, hyperlipidemia, scleroderma, significant rheumatoid arthritis, and osteoporosis,. She has been off chronic steroids for about 8 years. She does take chronic RA medication. PAST SURGICAL HISTORY: Include Bi-V ICD 5 years ago with a generator change out 3 years ago, [employer] device,;bilateral knee replacement, CBC/BMP: 03/02/18 0411 03/02/18 0411 Significant Findings Laboratory Tests Test 02/27/18 10:54 02/28/18 04:30 03/01/18 03:34 03/02/18 04:11 White Blood Count 19.4 TH/MM3 (4.0-11.0) 19.0 TH/MM3 (4.0-11.0) 17.5 TH/MM3 (4.0-11.0) Red Blood Count 3.21 MIL/MM3 (4.00-5.30) 3.58 MIL/MM3 (4.00-5.30) 3.52 MIL/MM3 (4.00-5.30) Hemoglobin 8.8 GM/DL (11.6-15.3) 10.0 GM/DL (11.6-15.3) 9.8 GM/DL (11.6-15.3) Hematocrit 27.5 % (35.0-46.0) 31.0 % (35.0-46.0) 30.3 % (35.0-46.0) Red Cell Distribution Width 18.0 % (11.6-17.2) 19.1 % (11.6-17.2) 18.9 % (11.6-17.2) Neutrophils (%) (Auto) 79.5 % (16.0-70.0) Lymphocytes (%) (Auto) 8.5 % (9.0-44.0) Eosinophils (%) (Auto) 4.2 % (0.0-4.0) Neutrophils # (Auto) 15.4 TH/MM3 (1.8-7.7) Monocytes # (Auto) 1.4 TH/MM3 (0-0.9) Eosinophils # (Auto) 0.8 TH/MM3 (0-0.4) Random Glucose 142 MG/DL (74-106) Total Protein 5.8 GM/DL (6.4-8.2) Albumin 2.2 GM/DL (3.4-5.0) Calcium Level 7.9 MG/DL (8.5-10.1) 8.0 MG/DL (8.5-10.1) 8.3 MG/DL (8.5-10.1) 8.3 MG/DL (8.5-10.1) Chloride Level 108 MEQ/L (98-107) 94 MEQ/L (98-107) Carbon Dioxide Level 34.5 MEQ/L (21.0-32.0) 32.9 MEQ/L (21.0-32.0) Anion Gap 4 MEQ/L (5-15) Platelet Count 483 TH/MM3 (150-450) Blood Urea Nitrogen 21 MG/DL (7-18) Estimat Glomerular Filtration Rate 85 ML/MIN (>89) Imaging Last Impressions Chest X-Ray 03/02/18 0600 Signed Impressions: Service Date/Time: February 03:55 - CONCLUSION: Stable appearance. Jozef Pedro MD Head CT 02/25/18 0000 Signed Impressions: Service Date/Time: Sunday, February 25, 2018 20:56 - CONCLUSION: 1. Stable mild periventricular and subcortical white matter small vessel ischemic changes. 2. No acute infarct, acute hemorrhage, mass effect or extra-axial fluid collections. Chacho Bass MD Neck CTA 02/23/18 0000 Signed Impressions: Service Date/Time: February 19:54 - CONCLUSION: 1. Mild plaque at the carotid bifurcations without hemodynamically significant stenosis. 2. Apical lung disease with small right pneumothorax. There is some pneumomediastinum and air in the anterior subcutaneous tissues with probable hematoma between the clavicle heads. Mika Ruffin MD Head CTA 02/23/18 0000 Signed Impressions: Service Date/Time: February 19:54 - CONCLUSION: 1. Mild plaque at the carotid bifurcations without hemodynamically significant stenosis. No stenosis or occlusion identified within the brain. Mika Ruffin MD PE at Discharge GENERAL: A&O x 3 SKIN: Warm and dry. sternal incision intact and well approximated HEAD: Normocephalic. EYES: No scleral icterus. No injection or drainage. NECK: Supple, trachea midline. No JVD or lymphadenopathy. CARDIOVASCULAR: Regular rate and rhythm without murmurs, gallops, or rubs. V paced RESPIRATORY: Breath sounds equal bilaterally. No accessory muscle use. slightly diminished in bases GASTROINTESTINAL: Abdomen soft, non-tender, nondistended. MUSCULOSKELETAL: No cyanosis, or edema. BACK: Nontender without obvious deformity. No CVA tenderness. Hospital Course 02/23 pt admitted electively for MVR, CABG x 2 02/24 last evening pt had a sudden episode of loss of consciousness, generalized shaking activity. She then was nonresponsive following this. she slowly responded, per Neuro notes , starting following commands but appeared to be weak in the left side. A stroke alert was called. CT Brain, Head CTA, Neck CTA unremarkable , for EEG today, started on Keppra she know is able to state name place and weaker on left than right swallow eval pending leave chest tube in , on ASA keep in CVICU 02/25 Doing better this am Following commands Moving L sided much better. Still a little weak compared to the right Maintain in ICU Appreciate Neurology input 02/26 Much better this am. More awake and responsive Activity per neurology D/C IVF 02/27 able to stand with assistance, left arm strength improved will need rehab at discharge will recommend low dose coumadin for 6 week 2/ MVR tissue valve and INR 2-2.5 if ok with neuro keppra changed to po add low dose BB and digoxin for rate and rhythm control gentle diuresis 02/28/18 pt went Afib RVR this am bolus of amiodarone given dose of IV dig then po amiodarone and dose IV BB X 1 mag replaced pacer checked by rep yesterday/ stable eval for removal of chest tube today 03/01/18 on 3 liter nasal cannula chest tubes removed without difficulty f/u CXR in am back in SIN[facility] rhythm intermittent v paced HGB 10 5/10 per pt she cannot tolerate ASA discussed with Dr Howard cannot place on plavix and coumadin both will dc on on plavix alone / she has hx of GI bleed will need close monitoring of her HGB stable for dc to rehab continue PPI Pt Condition on Discharge: Good Discharge Disposition: Rehab Inpatient Discharge Instructions DIET: Follow Instructions for: Heart Healthy Diet Activities you can perform: Full Weight Bearing, Shower Only-No Bath Activities to avoid: Strenuous Activity, Driving Additional Activity Instructio: no lifting > 8 lbs or gallon of milk Follow up Referrals: Cardiology - 4 Weeks with Ale Man MD PCP Follow-up - 2 Weeks with Finesse Chatman MD Surgical - 2 Weeks with Cecelia Duke New Orders: 2D ECHO - 2 Weeks BASIC METABOLIC PROF - 2 Weeks CBC NO DIFF - 2 Months X-RAY CHEST PA & LAT - 2 Weeks New Medications: Amiodarone (Amiodarone) 200 Mg Tab 200 MG PO BID for heart rhythm, #28 TAB 0 Refills Carvedilol (Coreg) 3.125 Mg Tab 6.25 MG PO Q12HR for Blood Pressure Management, #60 TAB 2 Refills Clopidogrel (Plavix) 75 Mg Tab 75 MG PO DAILY for Blood Clot Prevention, #30 TAB 2 Refills does not tolerate ASA Diltiazem (Cardizem) 30 Mg Tab 30 MG PO QID for Blood Pressure Management, #120 TAB Docusate Sodium (Dok) 100 Mg Cap 100 MG PO DAILY PRN for constipation, #30 CAP 0 Refills Levetiracetam (Keppra) 500 Mg Tab 500 MG PO BID for seizure, #60 TAB 1 Refill Continued Medications: Albuterol 6.7 GM Inh (Proventil Hfa 6.7 GM Inh) 90 Mcg/Act Aer 2 PUFF INH Q6H PRN for SHORTNESS OF BREATH, #1 INHALER 0 Refills Digoxin (Digoxin) 0.125 Mg Tab 0.125 MG PO DAILY for Regulate Heart Beat, #30 TAB 0 Refills Leflunomide (Leflunomide) 20 Mg Tab 20 MG PO DAILY, TAB Multiple Vitamins W/ Minerals (Centrum) 1 Chew 1 TAB CHEW DAILY for Nutritional Supplement, TAB 0 Refills Omeprazole (Omeprazole) 20 Mg Tab 20 MG PO DAILY, #30 TAB 0 Refills Pravastatin (Pravastatin) 20 Mg Tab 20 MG PO DAILY for Cholesterol Management, #30 TAB 0 Refills Spironolactone (Spironolactone) 25 Mg Tab 12.5 MG PO DAILY, #15 TAB 0 Refills Tramadol (Tramadol) 50 Mg Tab 50 MG PO Q6H PRN for PAIN, TAB 0 Refills Discontinued Medications: Carvedilol (Carvedilol) 12.5 Mg Tab 12.5 MG PO BID, #60 TAB 0 Refills Cecelia Duke March 02, 2018 10:19
[2018-03-02] MEDS ORDERED: CLOPIDOGREL 75 MG TAB PO SCH (11:00)
[2018-03-02] MEDS ORDERED: WARFARIN SOD 3 MG TAB PO SCH (16:00)
[2018-03-13] MEDS ORDERED: LEVE500 PO (12:52)
[2018-03-13] MEDS ORDERED: DIGO0.12 PO (12:52)
[2018-03-13] MEDS ORDERED: MAGN30S PO (12:52)
[2018-03-13] MEDS ORDERED: Aquaphor Oint TOPICAL (12:52)
[2018-03-13] MEDS ORDERED: ACET325T15 PO (12:52)
[2018-03-13] MEDS ORDERED: PLAV75TA29 PO (12:52)
[2018-03-13] MEDS ORDERED: PRAV20TA2 PO (12:52)
[2018-03-13] MEDS ORDERED: CARV3.125 PO (12:52)
[2018-03-13] MEDS ORDERED: BENA25CA4 PO (12:52)
[2018-03-13] MEDS ORDERED: PERI PO (12:52)
[2018-03-13] MEDS ORDERED: SPIR25TA PO (12:52)
[2018-03-13] MEDS ORDERED: SENN187 PO (12:52)
[2018-03-13] MEDS ORDERED: OMEP20TA93 PO (12:52)
[2018-03-13] MEDS ORDERED: LEFL1TAB3 PO (12:52)
[2018-03-13] MEDS ORDERED: CENTCHW4 CHEW (12:52)
== END 2018-03-02 12:35 | DRG 220 ==
LOC: HSDI 05:12 → HCVI 13:40 → HCPC 03-01 15:35
PROVIDERS: ADMIT Thoracic Surgery (Cardiothoracic Vascular Surgery); ATTEND Thoracic Surgery (Cardiothoracic Vascular Surgery)
PROC: B246ZZ4 Ultrasonography of Right and Left Heart, Transesophageal (ICD-10-PCS; 2018-02-23)
PROC: 02B70ZK Excision of Left Atrial Appendage, Open Approach (ICD-10-PCS; 2018-02-23)
PROC: 5A1221Z Performance of Cardiac Output, Continuous (ICD-10-PCS; 2018-02-23)
PROC: 30233N1 Transfusion of Nonautologous Red Blood Cells into Peripheral Vein, Percutaneous Approach (ICD-10-PCS; 2018-02-23)
PROC: 02100Z9 Bypass Coronary Artery, One Artery from Left Internal Mammary, Open Approach (ICD-10-PCS; principal; 2018-02-23 07:50)
PROC: 02RG0JZ Replacement of Mitral Valve with Synthetic Substitute, Open Approach (ICD-10-PCS; 2018-02-23 07:50)
DX: I25.10 Atherosclerotic heart disease of native coronary artery without angina pectoris (principal); E87.2 Acidosis; I31.0 Chronic adhesive pericarditis; I50.9 Heart failure, unspecified; I11.0 Hypertensive heart disease with heart failure; I42.9 Cardiomyopathy, unspecified; D62 Acute posthemorrhagic anemia; G45.9 Transient cerebral ischemic attack, unspecified; I08.3 Combined rheumatic disorders of mitral, aortic and tricuspid valves; R56.9 Unspecified convulsions; I27.20 Pulmonary hypertension, unspecified; M34.9 Systemic sclerosis, unspecified; Z96.653 Presence of artificial knee joint, bilateral; M81.0 Age-related osteoporosis without current pathological fracture; M06.9 Rheumatoid arthritis, unspecified; E78.5 Hyperlipidemia, unspecified; Z95.810 Presence of automatic (implantable) cardiac defibrillator; Z79.52 Long term (current) use of systemic steroids; I48.91 Unspecified atrial fibrillation
CPT/HCPCS: 36430; 70450; 70496; 70498; 71045; 76937; 80048; 80053; 80162; 81001; 82550; 82552; 82948; 83605; 83735; 84443; 84484; 85007; 85025; 85027; 85384; 85610; 85730; 86850; 86900; 86901; 86920; 87040; 87086; 88305; 93005; 93306; 94002; 94640; 94664; 94667; 94668; 95819; C9113; C9248; J0131; J0171; J0282; J0330; J0461; J0690; J1160; J1644; J1817; J1940; J1953; J2150; J2250; J2370; J2405; J2543; J2720; J2930; J3010; J3370; J3475; J3480; J7030; J7040; J7042; J7050; J7120; P9016; P9047; Q9967